=== PATIENT | female | born 1960 | race Caucasian/White ===

== ENCOUNTER 2016-05-29 10:19 | Emergency (ER) | payer MEDICARE, OTHER ==
[2016-01-02 09:31] VITALS: BMI 21.6
[~2016-05-29 10:19] MED LIST: BAYER CHEWABLE81 MG PO; DILAUDID4 MG PO; DURAGESIC1 PATCH .1 TRANSDERM; DURAGESIC1 PATCH .3 TRANSDERM; FLOMAX0.4 MG PO; OXYCODONE HCL5 MG PO; PHENERGAN25 M1 PO; PLAVIX75 MG PO; SEROQUEL25 MG PO; VENTOLIN HFA18 GM INH
[2016-05-29 10:49] LABS: HEMOGLOBIN 13.3 g/dL (12-16); LYMPHOCYTES 32.1 % (15-50); MCH 28.9 pg (26.0-34.0); MCHC 32.4 g/dL (31.0-37.0); MCV 89.1 fL (80.0-100.0); MEAN PLATELET VOLUME 10.3 fL (7.4-10.4); PLATELET COUNT 130 10x3/uL (130-400); RDW 12.8 % (11.5-14.5); WBC 3.6 10x3/uL (4.8-10.8)
[2016-05-29 10:59] LABS: ALBUMIN 3.5 g/dL (3.4-5.0); ALKALINE PHOSPHATASE 131 U/L (46-116); ALT (SGPT) 35 U/L (10-68); CALC OSMOLALITY 284 mosm/kg (275-300); CARBON DIOXIDE 29.6 mmol/L (21.0-32.0); CHLORIDE - SERUM 107 mmol/L (98-107); CREATININE - SERUM 0.8 mg/dL (0.6-1.3); GLUCOSE 120 mg/dL (74-106); POTASSIUM - SERUM 3.9 mmol/L (3.5-5.1); PROTEIN - SERUM 6.6 g/dL (6.4-8.2); SODIUM 143 mmol/L (136-145); UREA NITROGEN 11 mg/dL (7-18); eGFR NON AFRICAN AMERICAN 79 mL/min (90-120)
[2016-05-29 11:10] LABS: CKMB 0.2 U/L (0.0-3.6); CREATINE KINASE 28 UL (21-215); TROPONIN-I < 0.017 ng/mL (0.000-0.060)
== END 2016-05-29 14:04 | disposition home or self-care (01) ==
LOC: D.ER 10:19
PROVIDERS: Emergency Medicine
DX: R07.89 Other chest pain (principal); J44.1 Chronic obstructive pulmonary disease with (acute) exacerbation; Z86.79 Personal history of other diseases of the circulatory system; K86.1 Other chronic pancreatitis; F17.200 Nicotine dependence, unspecified, uncomplicated; R00.1 Bradycardia, unspecified

== ENCOUNTER 2016-06-11 10:54 | Outpatient (CLI) | payer MEDICARE, OTHER ==
[~2016-06-11] VITALS: Ht 180.3 cm; Wt 73.2 kg
--- NOTE | ~2016-06-11 | HEMODYNAMI ---
PATIENT:RUTHIE PAUL MEDICAL RECORD: [id number] : 64 LOCATION:[facility] ADMISSION DATE: 06/11/16 Generatedon:06/11/201613:45 Patient name: RUTHIE PAUL Patient #: [id number] : 1960 Date of study: 06/11/2016 Page: Of Hemodynamic Procedure Report Patient Data Patient Demographics Procedure consent was obtained First Name: RUTHIE Gender: Female Last Name: HUMBERTO : 1960 [facility] Initial: LEVI Age: 55 year(s) Patient #: [id number] Race: SSN: [id number] Additional ID: [id number] Contact details Address: [address] [place] [address] State: [place] City: [place] Zip code: [address] Past Medical History Allergies Allergen Reaction Date Comments Reported Other 01/02/2016 metoclopramide hcl, zolpidem allergy tartrate,pcn,ambien,doxycyclin,vancomycin,macrobid . Admission Admission Data Admission Date: 06/11/2016 Admission Time: 10:54 Arrival Date: 06/11/2016 Arrival Time: 13:00 Admit Source: Other Insurance Payor: Medicare Lab Results Lab Result Date: 06/11/2016 Lab Result Time: 0:00 Biochemistry Name Units Result Min Max BUN mg/dl 13 --(--*-)-- 7 18 Creatinine mg/dl 0.8 --(-*--)-- 0.6 1.3 CBC Name Units Result Min Max Hemoglobin g/dl 12.8 -*(----)-- 13.5 17.5 Procedure Procedure Types Cath Procedure Diagnostic Procedure C [facility] w/Coronaries PCI Procedure Coronary Stent Initial Miscellaneous Procedures Moderate Sedation up to 45 minutes Procedure Description Procedure Date Procedure Date: 06/11/2016 Procedure Start Time: 13:10 Procedure End Time: 13:40 Procedure Staff Name Function Jani Leary MD Performing Physician Sofía Martines RT Scrub Sherry Bowers RN Nurse Yue Mchugh RT Monitor Procedure Data Cath Procedure Fluoroscopy Diagnostic fluoroscopy Total fluoroscopy Time: 7 time: 7 min min Diagnostic fluoroscopy Total fluoroscopy dose: dose: 158.31 mGy 158.31 mGy Contrast Material Contrast Material Type Amount (ml) Isovue 370 79 Entry Location Entry Primary Successful Side Size Upsize Upsize Entry Closure Succes sful Closure Location (Fr) 1 (Fr) 2 (Fr) Remarks Device Remarks Femoral Right 5 Fr 6 Fr artery Short Estimated blood loss: 5 ml Diagnostic catheters Device Type Used For End Catheter Placement Cordis 5Fr JL 4.0 Left Coronary Catheter (MP) Angiography Cordis 5Fr 3DRC Catheter Right Coronary (MP) Angiography Cordis 5Fr Pigtail Multi-vessel Catheter (MP) Angiography Procedure Complications No complications Procedure Medications Medication Administration Route Dosage Oxygen NC 2 l/min Heparin Flush Bag added to field 2 bags (1000units/500ml NS) Lidocaine 2% added to field 20 Versed I.V. 1 mg Fentanyl I.V. 50 mcg 0.9% NaCl I.V. bolus 250 ml Versed I.V. 1 mg Fentanyl I.V. 50 mcg Fentanyl I.V. 25 mcg Heparin Bolus I.V. 7300 units Plavix P.O. 600 mg Hemodynamics Rest HGB: 12.8 (g/dl) Heart Rate: 58 (bpm) Pressure Samples Time Site Value (mmHg) Purpose Heart Use Rate(bpm) 13:19 LV 94/-10,3 Snapshot 60 13:20 AO 83/47(62) Pullback 63 13:20 LV 90/-13,6 Pullback 63 Gradients Valve Time Site 1 Site 2 Mean SEP/DFP Peak To Heart Use (mmHg) (sec/min) Peak Rate (mmHg) (bpm) Aortic 13:20 LV AO 9 15 7 63 90/-13,6 83/47(62) Calculations Valve P-P Mean Valve Index Valve Source Name Gradient Area Flow (cm2) Aortic 7 9 7 9 Snapshots Pre Cath Intra NCS Post Cath Vital Signs Time Heart Resp SPO2 NIBP Rhythm Pain Sedation Rate (ipm) (%) (mmHg) Status Level (bpm) 12:49:28 62 20 94 103/53(86) NSR 0 (11) 10(A) , No pain 12:53:44 59 16 97 101/45(77) NSR 0 (11) 10(A) , No pain 12:57:56 60 20 98 96/49(64) NSR 0 (11) 10(A) , No pain 13:02:06 60 20 100 91/47(58) NSR 0 (11) 10(A) , No pain 13:06:17 60 16 100 90/42(66) NSR 0 (11) 10(A) , No pain 13:10:27 61 18 100 80/39(59) NSR 0 (11) 10(A) , No pain 13:14:33 58 18 100 84/46(68) NSR 0 (11) 9(A) , No pain 13:18:41 64 22 100 83/44(62) NSR 0 (11) 9(A) , No pain 13:22:49 59 16 100 83/40(60) NSR 0 (11) 9(A) , No pain 13:26:55 67 16 100 85/45(68) NSR 0 (11) 9(A) , No pain 13:31:03 64 21 100 87/45(63) NSR 0 (11) 9(A) , No pain 13:35:10 58 18 100 80/47(67) NSR 0 (11) 9(A) , No pain 13:39:16 59 16 100 80/49(65) NSR 0 (11) 10(A) , No pain Medications Time Medication Route Dose Verified Delivered Reason Notes Effectiveness by by 12:48:28 Oxygen NC 2 Jani Sherry Per physician l/min Jacky Bowers RN 12:48:38 Heparin Flush added 2 Jani Jani used for Bag to bags Jacky Leary MD procedure (1000units/500ml field NS) 12:48:45 Lidocaine 2% added 20ml Jani Jani used for to vial Jacky Leary MD procedure field 13:06:40 Versed I.V. 1 mg Jani Sherry for sedation Jacky Bowers RN 13:06:48 Fentanyl I.V. 50 Jani Sherry for sedation mcg Jacky Bowers RN 13:08:16 Fentanyl I.V. 50 Jani Sherry for sedation mcg Jacky Bowers RN 13:08:57 Versed I.V. 1 mg Jani Sherry for sedation Jacky Bowers RN 13:10:19 Fentanyl I.V. 25 Jani Sherry for sedation mcg Jacky Bowers RN 13:10:31 0.9% NaCl I.V. 250 Jani Sherry Per physician bolus ml Jacky Bowers RN 13:25:22 Heparin Bolus I.V. 7300 Jani Sherry for dose units Jacky Bowers RN anticoagulation verified wtih dr leary 13:42:29 Plavix P.O. 600 Jani Sherry for mg Jacky Bowers RN antiplatelet therapy Procedure Log Time Note 12:30:37 Sofía Conrad RT(R) sent for patient. Start room use. 12:42:13 Diagnostic Cath Status : Elective 12:42:58 Time tracking: Regular hours 12:43:03 Plan of Care:Hemodynamics will remain stable., Cardiac rhythm will remain stable., Comfort level will be maintained., Respiratory function will remain adequate., Patient/ family verbilizes understanding of procedure., Procedure tolerated without complication., Recovers from procedure without complications.. 12:43:08 Patient received from Outpatients to [facility] Alert and oriented. Tansferred to table in Supine position. 12:43:09 Warm blankets applied, and yeni hugger turned on for patient comfort. 12:43:09 Correct patient and procedure confirmed by team. 12:43:11 Signed procedure consent form obtained from patient. 12:43:12 ECG and BP/O2 sat monitors applied to patient. 12:48:19 Vital chart was started 12:48:28 Oxygen 2 l/min NC was given by Sherry Bowers RN; Per physician; 12:48:38 Heparin Flush Bag (1000units/500ml NS) 2 bags added to field was given by Jani Leary MD; used for procedure; 12:48:45 Lidocaine 2% 20ml vial added to field was given by Jani Leary MD; used for procedure; 12:54:19 Baseline sample Acquired. 12:54:48 Rhythm: sinus rhythm 12:54:56 Full Disclosure recording started 12:56:29 H&P Date Dictated: 06/03/2016 Within 30 days and on chart., H&P Addendum completed by physician on day of procedure. (MUST COMPLETE FOR ALL OUTPATIENTS). 12:56:31 Pre-procedure instructions explained to patient. 12:56:31 Pre-op teaching completed and patient verbalized understanding. 12:56:33 Family in waiting room. 12:56:35 Patient NPO since Midnight. 12:56:43 Is the patient allergic to Iodine/contrast media? No. 12:56:44 Was the patient premedicated? No 12:59:34 Is patient on blood thinner?No 12:59:38 Patient diabetic? No. 12:59:47 Previous problem with sedation/anesthesia? No ? 12:59:51 Snore? No 12:59:52 Sleep apnea? No 12:59:53 Deviated septum? No 12:59:54 Opens mouth fully? Yes 12:59:55 Sticks out tongue? Yes 12:59:56 Airway obstruction? Yes copd 12:59:59 Dentures? No ? 13:00:03 Pre procedure: right dorsailis pedis pulse 1+ Palpable, but thready & weak; easily obliterated 13:00:05 Patient pain scale 0/10 ?. 13:00:11 IV patent on arrival in left forearm with 0.9% NaCl at [facility]. 13:00:38 Lab Result : BUN 13 mg/dl 13:00:38 Lab Result : Creatinine 0.8 mg/dl 13:00:38 Lab Result : Hemoglobin 12.8 g/dl 13:00:42 Lab results completed and on chart. 13:00:46 Right Radial & Right Groin area was prepped with chlora-prep and draped in sterile fashion 13:00:47 Alarms reviewed by R. N. 13:00:47 Sharps counted by scrub and verified by R.N. 13:05:48 Physician arrived 13:05:49 --------ALL STOP TIME OUT------ 13:06:00 Final Timeout: patient, procedure, and site verified with staff and physician. All members of the team are in agreement. 13:06:06 Right groin site verified by team. 13:06:09 Physical assessment completed. ASA score P 2 - A patient with mild systemic disease as per Jani Leary MD. 13:06:15 Sedation plan: IV Moderate Sedation Versed, Fentanyl 13:06:22 Use device set Femoral Dx 13:06:23 Acist Syringe opened to sterile field. 13:06:23 Bag Decanter opened to sterile field. 13:06:24 Medline Cath Pack opened to sterile field. 13:06:24 Terumo 5Fr [place] Sheath opened to sterile field. 13:06:25 St Minh 260cm J .035 wire opened to sterile field. 13:06:26 Acist Hand Control opened to sterile field. 13:06:27 Acist Manifold opened to sterile field. 13:06:28 Diagnostic Infinity 5Fr Multipack catheter opened to sterile field. 13:06:29 Tegaderm 4 x 4 opened to sterile field. 13:06:40 Versed 1 mg I.V. was given by Sherry Bowers RN; for sedation; 13:06:48 Fentanyl 50 mcg I.V. was given by Sherry Bowers RN; for sedation; 13:08:16 Fentanyl 50 mcg I.V. was given by Sherry Bowers RN; for sedation; 13:08:57 Versed 1 mg I.V. was given by Sherry Bowers RN; for sedation; 13:09:59 Procedure started. 13:10:04 Local anesthetic to right femoral artery with Lidocaine 2% by Jani Leary MD.INITIAL ACCESS ONLY 13:10:19 Fentanyl 25 mcg I.V. was given by Sherry Bowers RN; for sedation; 13:10:31 0.9% NaCl 250 ml I.V. bolus was given by Sherry Bowers RN; Per physician; 13:12:08 A 5 Fr sheath was inserted into the Right Femoral artery 13:14:02 A Cordis 5Fr JL 4.0 Catheter (MP) was advanced over the wire and used for Left Coronary Angiography. 13:15:17 LCA angiography performed. 13:15:20 Injector settings: Ml/sec: 3, Volume: 6, 13:16:06 Catheter removed. 13:16:11 A Cordis 5Fr 3DRC Catheter (MP) was advanced over the wire and used for Right Coronary Angiography. 13:17:33 RCA angiography performed. 13:17:36 Injector settings: Ml/sec: 3, Volume: 6, 13:17:58 Catheter removed. 13:18:09 A Cordis 5Fr Pigtail Catheter (MP) was advanced over the wire and used for Multi-vessel Angiography. 13:19:23 LV hemodynamics recorded. 13:19:24 LV gram done using GARCIA 13:19:27 Injector settings: Ml/sec: 5, Volume: 15, 13:19:58 EF : 55 % 13:20:00 Catheter removed. 13:21:09 Proceeding to intervention. 13:21:27 [employer] BMW [place] 2 J-tip 300cm 0.014 guide wir opened to sterile field. 13:21:28 [employer] BasixCompak Inflation Kit opened to sterile field. 13:21:29 Terumo 6Fr [place] Sheath opened to sterile field. 13:21:39 Sheath upsized to a 6 Fr Short. 13:22:53 Cordis 6FR XBLAD 3.5 SH guide catheter opened to sterile field. 13:23:04 6 Fr xblad 3.5 guide catheter was inserted over the wire 13:23:14 High Pressure Extension Tubing (Jacky) opened to sterile field. 13:23:57 bmw wire advanced. 13:23:59 Wire advanced across lesion. 13:25:22 Heparin Bolus 7300 units I.V. was given by Sherry Bowers RN; for anticoagulation; dose verified wtih dr leary 13:28:52 Inflation number: 1 A [place] Sci Motley 3.0 X 15 balloon was prepped and advanced across the Mid LAD, then inflated to 10 ELE for 0:10 (min:sec). 13:29:44 Inflation number: 2 The [place] Sci Motley 3.0 X 15 balloon was reinflated across the Mid LAD, to 12 ELE for 0:10 (min:sec). 13:30:27 Inflation number: 3 The [place] Sci Motley 3.0 X 15 balloon was reinflated across the Mid LAD, to 8 ELE for 0:10 (min:sec). 13:34:12 Balloon removed over the wire. 13:37:17 Inflation Number: 4 A Medtronic Integrity 3.0 X 9 stent was prepped and advanced across the Mid LAD. The stent was deployed at 12 ELE for 0:10 (min:sec). 13:38:34 Stent catheter was removed intact over wire. 13:38:36 Wire removed. 13:38:36 Guide catheter removed. 13:38:50 Cordis 6Fr Exoseal opened to sterile field. 13:38:53 Procedure ended.(Physican Out) 13:39:21 Fluoroscopy time 07.00 minutes. 13:39:31 Fluoroscopy dose: 158.31 mGy 13:39:31 Flurop Dose total: 158.31 13:39:36 Contrast amount:Isovue 370 79ml. 13:39:37 Sharps counted by scrub and verified by R.N. 13:39:38 Insertion/operative site no bleeding no hematoma. 13:39:42 Post-op/insertion site Right Femoral artery dressed using a 4 x 4 and Tegaderm. 13:39:45 Post right femoral artery:stable 13:39:47 Post Procedure Pulses reassessed and unchanged 13:39:51 Post procedure rhythm: unchanged. 13:39:55 Estimated blood loss: 5 ml 13:39:56 Post procedure instruction explained to patient.Patient verbalizes understanding. 13:39:57 Patient needs reinforcement of post procedure teaching. 13:40:05 Procedure type changed to Cath procedure, Diagnostic procedure, LHC, LHC w/Coronaries, PCI procedure, Coronary Stent Initial, Miscellaneous Procedures, Moderate Sedation up to 45 minutes 13:40:06 Procedure and supply charges have been captured, reviewed, submitted and are correct. 13:40:11 Procedure Complication : No complications 13:40:13 Vital chart was stopped 13:40:15 See physician's report for complete and final results. 13:40:16 Report given to Pre/Post Procedure Room. 13:40:19 Patient transfered to Pre/Post Procedure Room with Stretcher. 13:40:24 Procedure ended. 13:40:24 Full Disclosure recording stopped 13:40:47 ACC-PCI Only Patient was given prescriptions, or instructed by Jani Leary MD to start/continue the following medications upon discharge: Plavix 13:40:48 End room use (Document Last) 13:41:16 Admit Source: Other 13:41:18 Arrival Date: 06/11/2016 1:00:00 PM 13:41:29 Insurance Payor : Medicare 13:42:29 Plavix 600 mg P.O. was given by Sherry Bowers RN; for antiplatelet therapy; Intervention Summary Intervention Notes Time ActionType Lesion and Equipment Action# Pressure Duration Attributes Used 13:28:52 Inflate Mid LAD [place] 1 10 00:10 balloon Sci Motley 3.0 X 15 balloon 13:29:44 Reinflate Mid LAD [place] 2 12 00:10 balloon Sci Motley 3.0 X 15 balloon 13:30:27 Reinflate Mid LAD [place] 3 8 00:10 balloon Sci Motley 3.0 X 15 balloon 13:37:17 Place stent Mid LAD Medtronic 4 12 00:10 Integrity 3.0 X 9 stent Device Usage Item Name Manufacture Quantity Catalog Number Hospital Part Current Mini mal Lot# / Charge Number Stock Stock Serial# Code Acist Acist 1 35984 586931 716037 872921 20 Syringe Medical [employer] Inc Bag Microtek 1 2002S 023085 78514 262444 5 Sis[employer] Medline Cardinal 1 [id number] 601963 89313 583166 5 Cath Pack Health Terumo 5Fr Terumo 1 [id number] 456565 515955 312509 [address] Minh 1 201263 405963 778309 876370 30 260cm J .035 wire Acist Hand Acist 1 94976 204987 582578 749648 5 Lulu [employer] Inc Acist Acist 1 68303 131167 682181 615273 5 MeriTaleem [employer] Inc Diagnostic Cardinal 1 [id number] 642594 94427 543007 30 Infinity Health 5Fr Multipack catheter Tegaderm 4 3M 1 1626W 173472 847203 731967 5 x 4 Cordis 5Fr Cardinal 1 307169 5 JL 4.0 Health Catheter (MP) Cordis 5Fr Cardinal 1 312011 5 3DRC Health Catheter (MP) Cordis 5Fr Cardinal 1 733616 5 Pigtail Health Catheter (MP) Mosley BMW Mosley 1 [id number] 990709 304614 886402 5 [place] 2 Vascular J-tip 300cm 0.014 guide wir Merit Merit 1 [id number] 897036 560428 467618 15 [employer] Medical Inflation Kit Terumo 6Fr Terumo 1 XXX082 107165 393549 992590 40 [place] Sheath Cordis 6FR Cardinal 1 [id number] 163416 733205 246932 3 XBLAD 3.5 Health SH guide catheter High Merit 1 [id number] 014051 01676 268117 10 Pressure Medical Extension Tubing (Leary) [place] Sci [place] 1 [id number] 091437 192838 526163 1 [id number] Motley Scientific 3.0 X 15 balloon Medtronic Medtronic 1 [id number] 756932 000924 552722 4 [id number] Integrity 3.0 X 9 stent Cordis 6Fr Cardinal 1 [id number] 895615 193474 560912 10 [facility] Memopal Signature Audit Bob White Stage Time Signature Unsigned Intra-Procedure 06/11/2016 Yue Mchugh 1:45:15 PM RT(R) Signatures Monitor : Yue Mchugh RT Signature : Date : Time : [place] [id number] [place] [address]
[2016-06-11] MEDS ORDERED: SYMBICORT 16010.2 GM INH (11:30)
[2016-06-11] MEDS ORDERED: SINGULAIR10 MG PO (11:30)
[2016-06-11] MEDS ORDERED: ISOSORBIDE DINI30 MG PO (11:31)
[2016-06-11 11:37] LABS: BASOPHILS 0.7 % (0.0-2.0); HEMATOCRIT 40.6 % (36.0-48.0); HEMOGLOBIN 12.8 g/dL (12-16); IMMATURE GRANULOCYTES 0.2 % (0-5); LYMPHOCYTES 34.6 % (15-50); MCH 28.4 pg (26.0-34.0); MCHC 31.5 g/dL (31.0-37.0); MEAN PLATELET VOLUME 10.5 fL (7.4-10.4); MONOCYTES 6.9 % (2-11); NEUTROPHILS 54.6 % (40-80); PLATELET COUNT 134 10x3/uL (130-400); RBC 4.51 10x6/uL (4.00-5.40); RDW 13.1 % (11.5-14.5); WBC 4.4 10x3/uL (4.8-10.8)
[2016-06-11 11:38] VITALS: BP 101/55; Ht 180.3 cm; Wt 73.2 kg
[2016-06-11 12:05] LABS: CALC OSMOLALITY 284 mosm/kg (275-300); CALCIUM 8.7 mg/dL (8.5-10.1); CARBON DIOXIDE 28.3 mmol/L (21.0-32.0); CHLORIDE - SERUM 107 mmol/L (98-107); CREATININE - SERUM 0.8 mg/dL (0.6-1.3); GLUCOSE 104 mg/dL (74-106); POTASSIUM - SERUM 3.2 mmol/L (3.5-5.1); SODIUM 143 mmol/L (136-145); UREA NITROGEN 13 mg/dL (7-18); eGFR NON AFRICAN AMERICAN 79 mL/min (90-120)
--- NOTE | 2016-06-11 14:26 | NUR ---
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 PT SLEEPING AND AWAKENS TO VERBAL STIMULI. C/O NAUSEA. DR ORTEGA HERE AND ORDER FOR JEANNIE RECEIVED. RIGHT GROIN EXOSEAL IS CDI, NO BLEEDING OR HEMATOMA NOTED AT SITE. PEDAL PULSES PALPABLE. TOES WARM TO TOUCH AND PINK. INSTRUCTED PT TO KEEP RIGHT LEG STRAIGHT AND HEAD TO PILLOW, PT VERBALIZES UNDERSTANDING.
[2016-06-11] MEDS ORDERED: BAYER CHEWABLE81 MG PO (14:44)
[2016-06-11] MEDS ORDERED: PLAVIX75 MG PO (14:44)
--- NOTE | 2016-06-11 17:15 | NUR ---
1530 PT SLEEPING, AWAKENS TO VERBAL STIMULI. DENIES ANY C/O CHEST DISCOMFORT. GROIN DRESSING IS CDI, NO BLEEDING OR BRUISING AT SITE. PEDAL PULSES PALPABLE. AT BEDSIDE. CALL LIGHT IN REACH. 1645 SANDWICH TRAY SERVED, PT DENIES ANY C/O. DRESSING TO RIGHT GROIN IS CDI, NO BLEEDING OR HEMATOMA NOTED. PEDAL PULSES PALPABLE. CALL LIGHT IN REACH. 1715 PT TOLERATED SANDWICH WITH NO C/O NAUSEA. DRESSING TO RIGHT GROIN IS STABLE WITH NO BLEEDING OR HEMATOMA, PT DENIES ANY CHEST DISCOMFORT. AT BEDSIDE. CALL LIGHT IN REACH.
--- NOTE | 2016-06-11 17:50 | NUR ---
1750 DC INSTRUCTIONS REVIEWED WITH PT AND SPOUSE WHO VERBALIZE UNDERSTANDING. STENT CARD, PLAVIX RX, EXOSEAL BOOKLET TO PT. IV DC'D WITH CATH INTACT. DRESSING TO RIGHT GROIN IS CDI, NO BLEEDING OR HEMATOMA NOTED. PT DENIES ANY C/O. IS DRESSING FOR DC TO HOME.
--- NOTE | 2016-06-11 18:02 | NUR ---
1800 PT HAS AMBULATED TO THE BATHROOM AND VOIDED QS. GROIN DRESSING REMAINS STABLE WITH NO BLEEDING OR HEMATOMA NOTED. PT ESCORTED TO PRIVATE AUTO VIA WC BY STAFF WITH DRIVING HER HOME.
--- NOTE | 2016-07-15 08:17 | OP ---
PATIENT NAME: RUTHIE PAUL MEDICAL RECORD: [id number] :64 LOCATION:D.CAT ADMISSION DATE: SURGEON: MARY KAY ORTEGA M.D. DATE OF OPERATION: 06/11/2016 Catheterization Report PROCEDURES PERFORMED: 1. Selective coronary angiography. 2. Left heart catheterization with ventriculogram. 3. PTCA and stent placement to the LAD. INDICATION: A 55-year-old woman with history of coronary artery disease presents with recurrent angina. Cardiac catheterization performed to rule out restenosis. EQUIPMENT USED: A 5-British JL4, Aldo right, pigtail catheter. INTERVENTION: A 6-British XB LAD guide, BMW guide wire, 3.0 x 15 mm [place] balloon, 3.0 x 9 mm Integrity stent. TECHNIQUE: A 5-British sheath was inserted in retrograde fashion in the right common femoral artery. Next, selective coronary angiography was performed in standard 5-British JL4 and Aldo right. Left heart catheterization was performed using pigtail catheter. CORONARY ANATOMY: 1. Left main: Left main trunk is moderate in caliber. It gives rise to the LAD and circumflex. It has no obstruction. 2. LAD: This is a moderate caliber vessel extending to the apex. The proximal vessel has been stented. The stent demonstrates an 80% restenosis in the mid to distal portion of the stent. 3. Circumflex: This vessel is moderate in caliber. It has mild irregularities throughout its course, but no significant stenosis is seen. There is nothing worse than 30%. 4. Right coronary artery: This vessel is large in caliber and dominant. A smooth-walled vessel and angiographically normal. 5. Left ventricle: Left ventricle is normal in size and function. No wall motion abnormalities are seen. Estimated ejection fraction is 50% to 55%. DESCRIPTION OF INTERVENTION: A 6-British sheath was inserted in retrograde fashion in the right common femoral artery. Next, 100 units per kilogram of heparin was infused. A 6-British XB LAD guide was advanced and engaged in the left main coronary artery. Next, a BMW guide wire was placed in the distal vessel. The vessel was predilated with a 3.0 x 15 mm [place] balloon at 12 atmospheres. Injection revealed persistent 80% restenosis. At this point, a 3.0 x 9 mm Integrity stent was placed across this restenotic area and deployed at 12 atmospheres. Injection shows stent to be widely patent with 0% residual stenosis. There is marked improvement in distal flow. At this point, the wire and guide were removed. IMPRESSION: Successful percutaneous transluminal coronary angioplasty and stenting of the LAD with 0% residual stenosis. TRANSINT:[id number] Voice Confirmation ID: [id number] DOCUMENT ID: [id number] OPERATIVE REPORT [id number] RUTHIE PAUL TIMOTHY E M.D. at 0817 CC: [id number] DICTATION DATE: 06/11/16 1351 [employer]: 06/11/16 1903 DEP CLI 06/11/16 [facility] [address] [place] [address]
== END 2016-06-11 18:00 | disposition home or self-care (01) ==
LOC: D.CATH 10:54
PROVIDERS: Internal Medicine Cardiovascular Disease
DX: I25.119 Atherosclerotic heart disease of native coronary artery with unspecified angina pectoris (principal); I10 Essential (primary) hypertension; E11.9 Type 2 diabetes mellitus without complications; J44.9 Chronic obstructive pulmonary disease, unspecified; K21.9 Gastro-esophageal reflux disease without esophagitis

== ENCOUNTER 2016-07-15 19:57 | Outpatient (CLI) | payer MEDICARE, OTHER ==
[~2016-07-15] VITALS: Ht 180.3 cm; Wt 61.4 kg
--- NOTE | ~2016-07-15 | HEMODYNAMI ---
PATIENT:RUTHIE PAUL MEDICAL RECORD: [id number] : 64 [facility]ATION:[facility]# [id number] ADMISSION DATE: 07/15/16 Generatedon:07/16/20169:18 Patient name: RUTHIE PAUL Patient #: [id number] : 1960 Date of study: 07/16/2016 Page: Of Hemodynamic Procedure Report Patient Data Patient Demographics Procedure consent was obtained First Name: RUTHIE Gender: Female Last Name: HUMBERTO : 1960 [facility] Initial: LEVI Age: 55 year(s) Patient #: [id number] Race: SSN: [id number] Additional ID: [id number] Contact details [address]: [address] [place] [address] State: [place] City: [place] Zip code: [address] Past Medical History Allergies Allergen Reaction Date Comments Reported Other 01/02/2016 metoclopramide hcl, zolpidem allergy tartrate,pcn,ambien,doxycyclin,vancomycin,macrobid . Admission Admission Data Admission Date: 07/15/2016 Admission Time: 17:41 Procedure Procedure Types Cath Procedure Diagnostic Procedure LHC LHC w/Coronaries PCI Procedure Coronary Stent Initial Miscellaneous Procedures Moderate Sedation up to 15 minutes Procedure Description Procedure Date Procedure Date: 07/16/2016 Procedure Start Time: 9:00 Procedure End Time: 9:17 Procedure Staff Name Function Juan Diego Rubi MD Performing Physician Sofia Mckeon RN Nurse Gerardo Worrell RT Monitor Isacc Sotomayor RT Scrub Procedure Data Cath Procedure Fluoroscopy Diagnostic fluoroscopy Total fluoroscopy Time: 1.8 time: 1.8 min min Diagnostic fluoroscopy Total fluoroscopy dose: dose: 147.18 mGy 147.18 mGy Contrast Material Contrast Material Type Amount (ml) Isovue 300 83 Entry Location Entry Primary Successful Side Size Upsize Upsize Entry Closure Succes sful Closure Location (Fr) 1 (Fr) 2 (Fr) Remarks Device Remarks Femoral Right 6 Fr Exoseal artery Short Estimated blood loss: 10 ml Diagnostic catheters Device Type Used For End Catheter Placement Cordis 5Fr Pigtail Procedure Catheter (MP) Cordis 5Fr JL 4.0 Procedure Catheter (MP) Cordis 5Fr 3DRC Catheter Procedure (MP) Procedure Complications No complications Procedure Medications Medication Administration Route Dosage Oxygen NC 2 l/min Heparin Flush Bag added to field 2 bags (1000units/500ml NS) Lidocaine 2% added to field 20 Zofran I.V. 4 mg Fentanyl I.V. 50 mcg Versed I.V. 1 mg Fentanyl I.V. 25 mcg Versed I.V. 0.5 mg Fentanyl I.V. 25 mcg Versed I.V. 0.5 mg Heparin Bolus I.V. 4000 units Integrilin (Bolus I.V. 6.8 ml 2mg/ml) Plavix P.O. 600 mg Hemodynamics Rest Heart Rate: 65 (bpm) Snapshots Pre Cath Intra NCS Post Cath Vital Signs Time Heart Resp SPO2 NIBP (mmHg) Rhythm Pain Sedation Rate (ipm) (%) Status Level (bpm) 8:53:52 61 20 100 130/87(120) NSR 0 (11) 10(A) , No pain 8:58:04 62 16 99 115/68(90) NSR 0 (11) 10(A) , No pain 9:02:10 61 18 99 116/69(92) NSR 0 (11) 9(A) , No pain 9:06:20 68 16 96 105/69(84) NSR 0 (11) 9(A) , No pain 9:10:33 70 18 97 104/65(77) NSR 0 (11) 9(A) , No pain 9:14:37 62 7 98 110/64(82) NSR 0 (11) 10(A) , No pain Medications Time Medication Route Dose Verified Delivered Reason Notes Effectiveness by by 8:50:51 Oxygen NC 2 Sofia Sofia used for l/min Mckeon Mckeon flight hostess RN 8:50:58 Heparin Flush added 2 Sofia Sofia used for Bag to bags Mckeon Mckeon procedure (1000units/500ml field RN RN NS) 8:51:06 Lidocaine 2% added 20ml Sofia Sofia used for to vial Mckeon Mckeon procedure field RN RN 8:51:15 Zofran I.V. 4 mg Sofia Sofia Per physician Mckeon Mckeon RN RN 8:56:53 Fentanyl I.V. 50 Sofia Sofia for sedation mcg Mike Mckeon RN RN 8:56:58 Versed I.V. 1 mg Sofia Sofia for sedation Mike Mckeon RN RN 9:00:53 Fentanyl I.V. 25 Sofia Sofia for sedation mcg Mike Mckeon RN RN 9:00:58 Versed I.V. 0.5 Sofia Sofia for sedation mg Mike Mckeon RN RN 9:02:00 Fentanyl I.V. 25 Sofia Sofia for sedation mcg Mike Mckeon RN RN 9:02:04 Versed I.V. 0.5 Sofia Sofia for sedation mg Mike Mckeon RN RN 9:06:46 Integrilin I.V. 6.8ml Sofia Sofia for 3.2 ml (Bolus 2mg/ml) Mckeon Mike anticoagulation integ RN RN wasted 9:06:46 Heparin Bolus I.V. 4000 Sofia Sofia for units Mckeon Mike anticoagulation RN RN 9:10:19 Plavix P.O. 600 Sofia Sofia for mg Mckeon Mike antiplatelet RN RN therapy Procedure Log Time Note 8:20:55 Isacc Sotomayor RT(R) sent for patient. Start room use. 8:21:56 Time tracking: Regular hours 8:22:00 Plan of Care:Hemodynamics will remain stable., Cardiac rhythm will remain stable., Comfort level will be maintained., Respiratory function will remain adequate., Patient/ family verbilizes understanding of procedure., Procedure tolerated without complication., Recovers from procedure without complications.. 8:44:23 Patient received from ED to CCL 3 Alert and oriented. Tansferred to table in Supine position. 8:44:24 Warm blankets applied, and yeni hugger turned on for patient comfort. 8:44:24 Correct patient and procedure confirmed by team. 8:44:25 Signed procedure consent form obtained from patient. 8:44:26 ECG and BP/O2 sat monitors applied to patient. 8:50:51 Oxygen 2 l/min NC was administered by Sofia Mckeon RN; used for procedure; 8:50:58 Heparin Flush Bag (1000units/500ml NS) 2 bags added to field was administered by Sofia Mckeon RN; used for procedure; 8:51:06 Lidocaine 2% 20ml vial added to field was administered by Sofia Mckeon RN; used for procedure; 8:51:15 Zofran 4 mg I.V. was administered by Sofia Mckeon RN; Per physician; 8:52:52 Vital chart was started 8:52:53 Baseline sample Acquired. 8:52:56 Rhythm: sinus rhythm 8:52:57 Full Disclosure recording started 8:53:02 H&P Date Dictated: 07/16/2016 Emergent; H&P N/A. 8:53:03 Pre-procedure instructions explained to patient. 8:53:03 Pre-op teaching completed and patient verbalized understanding. 8:53:04 Family in waiting room. 8:53:05 Patient NPO since Midnight. 8:53:06 Is the patient allergic to Iodine/contrast media? No. 8:53:17 Is patient on blood thinner?No 8:53:20 ACC The patient was administered the following blood thiners within the last 24 hours: None 8:53:23 Patient diabetic? No. 8:53:26 Previous problem with sedation/anesthesia? No ? 8:53:27 Snore? Yes 8:53:28 Sleep apnea? No 8:53:29 Deviated septum? No 8:53:29 Opens mouth fully? Yes 8:53:30 Sticks out tongue? Yes 8:53:35 Airway obstruction? Yes Emphysema 8:53:39 Dentures? No ? 8:53:41 Pre procedure: right dorsailis pedis pulse 1+ Palpable, but thready & weak; easily obliterated 8:53:44 Patient pain scale 4/10 Physician notified.. 8:54:14 IV patent on arrival in left forearm with 0.9% NaCl at KVO. 8:54:17 Lab results completed and on chart. 8:54:20 Right groin area was prepped with chlora-prep and draped in sterile fashion 8:54:21 Alarms reviewed by R. N. 8:54:21 Sharps counted by scrub and verified by R.N. 8:54:23 --------ALL STOP TIME OUT------ 8:54:24 Final Timeout: patient, procedure, and site verified with staff and physician. All members of the team are in agreement. 8:54:26 Right groin site verified by team. 8:54:29 Physical assessment completed. ASA score P 2 - A patient with mild systemic disease as per Juan Diego Rubi MD. 8:54:32 Sedation plan: IV Moderate Sedation Versed, Fentanyl 8:56:22 Use device set Femoral Dx 8:56:24 Tegaderm 4 x 4 opened to sterile field. 8:56:25 Acist Hand Control opened to sterile field. 8:56:25 Acist Manifold opened to sterile field. 8:56:26 Acist Syringe opened to sterile field. 8:56:26 Bag Decanter opened to sterile field. 8:56:27 Medline Cath Pack opened to sterile field. 8:56:28 St Minh 260cm J .035 wire opened to sterile field. 8:56:30 Diagnostic Infinity 5Fr Multipack catheter opened to sterile field. 8:56:48 Terumo 6Fr Lincoln Sheath opened to sterile field. 8:56:53 Fentanyl 50 mcg I.V. was administered by Sofia Mckeon RN; for sedation; 8:56:58 Versed 1 mg I.V. was administered by Sofia Mckeon RN; for sedation; 9:00:12 IV Extension Set opened to sterile field. 9:00:25 Procedure started. 9:00:34 Local anesthetic to right femoral artery with Lidocaine 2% by Juan Diego Rubi MD.INITIAL ACCESS ONLY 9:00:53 Fentanyl 25 mcg I.V. was administered by Sofia Mckeon RN; for sedation; 9:00:58 Versed 0.5 mg I.V. was administered by Sofiasiva Mckeon RN; for sedation; 9:02:00 Fentanyl 25 mcg I.V. was administered by Sofiasvia Mckeon RN; for sedation; 9:02:00 A 6 Fr Short sheath was inserted into the Right Femoral artery 9:02:04 Versed 0.5 mg I.V. was administered by Sofia Mckeon RN; for sedation; 9:02:28 A Cordis 5Fr Pigtail Catheter (MP) was advanced over the wire and used for Procedure. 9:02:34 LV angiography performed. 9:02:35 LV gram done using GARCIA 9:02:44 EF : 50 % 9:03:19 Injector settings: Ml/sec: 10, Volume: 20, 9:03:20 Catheter removed. 9:03:27 A Cordis 5Fr JL 4.0 Catheter (MP) was advanced over the wire and used for Procedure. 9:03:59 LCA angiography performed. 9:04:18 Catheter removed. 9:04:20 Mosley Whisper J 300cm 0.014 guide wire opened to sterile field. 9:04:21 Merit BasixCompak Inflation Kit opened to sterile field. 9:04:43 A Cordis 5Fr 3DRC Catheter (MP) was advanced over the wire and used for Procedure. 9:05:01 RCA angiography performed. 9:05:17 Catheter removed. 9:06:46 Integrilin (Bolus 2mg/ml) 6.8ml I.V. was administered by Sofia Mckeon RN; for anticoagulation; 3.2 ml integ wasted 9::46 Heparin Bolus 4000 units I.V. was administered by Sofia Mckeon RN; for anticoagulation; 9:06:50 Cordis 6FR XB 3.5 guide catheter opened to sterile field. 9:07:12 ACC PCI Site: pCirc has 70% stenosis. 9:07:14 ACC Pre-intervention MARA Flow is 3. 9:07:19 6 Fr XB 3.5 guide catheter was inserted over the wire 9:08:40 Whisper wire advanced. 9:08:48 Wire advanced across lesion. 9:08:56 Inflation Number: 1 A Spring Pharmaceuticalstronic Integrity 3.0 X 9 stent was prepped and advanced across the Prox CX. The stent was deployed at 13 ELE for 0:10 (min:sec). 9:09:20 ACC Post-intervention MARA Flow is 3. 9:09:21 Stent catheter was removed intact over wire. 9::22 Wire removed. 9::22 Guide catheter removed. 9:10:19 Plavix 600 mg P.O. was administered by Sofia Mckeon RN; for antiplatelet therapy; 9::13 Sheath removed intact; hemostasis achieved with Exoseal to the Right Femoral artery. 9:11:22 Cordis 6Fr Exoseal opened to sterile field. 9:11:25 Procedure ended.(Physican Out) 9:11:37 Fluoroscopy time 01.80 minutes. ::42 Fluoroscopy dose: 147.18 mGy 9:11:42 Flurop Dose total: 147.18 9:11:46 Contrast amount:Isovue 300 83ml. 9:11:48 Sharps counted by scrub and verified by R.N. 9:11:52 Insertion/operative site no bleeding no hematoma. 9:11:54 Post-op/insertion site Right Femoral artery dressed using a 4 x 4 and Tegaderm. 9:11:55 Post Procedure Pulses reassessed and unchanged 9:11:58 Post-procedure physical assessment completed. ASA score P 2 - A patient with mild systemic disease as per Juan Diego Rubi MD. 9:12:00 Post procedure rhythm: unchanged. 9:12:03 Estimated blood loss: 10 ml 9:12:06 Post procedure instruction explained to patient.Patient verbalizes understanding. 9:12:06 Patient needs reinforcement of post procedure teaching. 9:13:20 Procedure type changed to Cath procedure, Diagnostic procedure, LHC, LHC w/Coronaries, PCI procedure, Coronary Stent Initial, Miscellaneous Procedures, Moderate Sedation up to 15 minutes 9:16:43 Procedure and supply charges have been captured, reviewed, submitted and are correct. 9:16:46 Procedure Complication : No complications 9:16:53 Vital chart was stopped 9:16:54 See physician's report for complete and final results. 9:16:56 Report given to Pre/Post Procedure Room. 9:17:00 Patient transfered to Pre/Post Procedure Room with Stretcher. 9:17:11 Procedure ended. 9:17:11 Full Disclosure recording stopped 9:17:28 ACC-PCI Only Patient was given prescriptions, or instructed by Juan Diego Rubi MD to start/continue the following medications upon discharge: Aspirin, Plavix 9:17:30 End room use (Document Last) Intervention Summary Intervention Notes Time ActionType Lesion and Equipment Action# Pressure Duration Attributes Used 9:08:56 Place stent Prox CX Medtronic 1 13 00:10 Integrity 3.0 X 9 stent Device Usage Item Name Manufacture Quantity Catalog Hospital Part Current Minimal L ot# / Number Charge Number Stock Stock Serial# Code Tegaderm 4 3M 1 [id number] [id number] [id number] 211645 5 x 4 Acist Hand Acist 1 03607 684687 095601 978075 5 ProMed Acist Acist 1 15240 430498 649809 860828 5 RollSale Inc Acist Acist 1 10638 123058 952862 828570 20 Syringe Medical Systems Inc Bag Microtek 1 2002S 546919 29132 743749 5 Decanter Medical Inc. Medline Cardinal 1 [id number] 612581 37390 173278 [address] [facility] Minh 1 962721 863300 910236 503723 30 260cm J .035 wire Diagnostic Cardinal 1 [id number] 549397 33718 475627 30 Infinity Health 5Fr Multipack catheter Terumo 6Fr Terumo 1 NLZ244 442604 957759 950119 40 Lincoln Sheath IV Hospira 1 20192-59 909240 31272 848063 5 Extension Set Cordis 5Fr Cardinal 1 319199 5 Pigtail Health Catheter (MP) Cordis 5Fr Cardinal 1 167179 5 JL 4.0 Health Catheter (MP) Mosley Mosley 1 [id number] 878952 451123 527202 5 Whisper J Vascular 300cm 0.014 guide wire Merit Merit 1 CQ0177 087011 829788 684625 15 SIPP International Industries Medical Inflation Kit Cordis 5Fr Cardinal 1 248839 5 3DRC Health Catheter (MP) Cordis 6FR Cardinal 1 [id number] 139873 153563 644010 2 XB 3.5 Health guide catheter Medtronic Medtronic 1 [id number] 366581 453666 125723 1 0 [id number] Integrity 3.0 X 9 stent Cordis 6Fr Cardinal 1 [id number] 572633 033287 956361 10 [facility]/Incubator Signature Audit [place] Stage Time Signature Unsigned Intra-Procedure 07/16/2016 Gerardo Worrell 9:18:11 AM RT(R) Signatures Monitor : Gerardo Worrell RT Signature : Date : Time : [facility] [address] [place] [address]
[2016-07-15 18:26] LABS: BASOPHILS 0.7 % (0.0-2.0); EOSINOPHILS 7.7 % (0-7); HEMATOCRIT 40.1 % (36.0-48.0); HEMOGLOBIN 12.5 g/dL (12-16); LYMPHOCYTES 24.6 % (15-50); MCH 28.4 pg (26.0-34.0); MCHC 31.2 g/dL (31.0-37.0); MCV 91.1 fL (80.0-100.0); MEAN PLATELET VOLUME 10.7 fL (7.4-10.4); MONOCYTES 7.7 % (2-11); NEUTROPHILS 59.3 % (40-80); PLATELET COUNT 129 10x3/uL (130-400); RDW 13.9 % (11.5-14.5); WBC 4.2 10x3/uL (4.8-10.8)
[2016-07-15 18:40] LABS: ALBUMIN 3.2 g/dL (3.4-5.0); ALKALINE PHOSPHATASE 130 U/L (46-116); ALT (SGPT) 39 U/L (10-68); BILIRUBIN - TOTAL 0.32 mg/dL (0.2-1.3); CALC OSMOLALITY 285 mosm/kg (275-300); CALCIUM 8.4 mg/dL (8.5-10.1); CARBON DIOXIDE 26.3 mmol/L (21.0-32.0); CHLORIDE - SERUM 109 mmol/L (98-107); CREATININE - SERUM 0.7 mg/dL (0.6-1.3); GLUCOSE 106 mg/dL (74-106); POTASSIUM - SERUM 4.5 mmol/L (3.5-5.1); PROTEIN - SERUM 6.3 g/dL (6.4-8.2); SODIUM 144 mmol/L (136-145); UREA NITROGEN 9 mg/dL (7-18); eGFR NON AFRICAN AMERICAN > 90 mL/min (90-120)
[2016-07-15 18:58] LABS: CHOL - HDL RATIO 2.4 ratio (2.3-4.1); CHOLESTEROL, TOTAL 176 mg/dL (0-200); CKMB 0.8 U/L (0.0-3.6); CREATINE KINASE 36 UL (21-215); HDL CHOLESTEROL 72 mg/dL (32-96); LDL CHOLESTEROL 93 mg/dL (0-100); LDL-HDL RATIO 1.3 ratio (1.5-3.5); TRIGLYCERIDE 58 mg/dL (30-200)
[2016-07-15 19:02] LABS: TROPONIN-I 0.121 ng/mL (0.000-0.060)
[~2016-07-15 19:57] MED LIST changes: +ISOSORBIDE DINI30 MG PO; +SINGULAIR10 MG PO; +SYMBICORT 16010.2 GM INH
[2016-07-15 21:27] LABS: APPEARANCE CLEAR (CLEAR); BILIRUBIN NEGATIVE (NEGATIVE); COLOR YELLOW (YELLOW); GLUCOSE NEGATIVE (NEGATIVE); KETONE NEGATIVE (NEGATIVE); LEUKOCYTE ESTERASE TRACE (NEGATIVE); NITRITE NEGATIVE (NEGATIVE); PROTEIN NEGATIVE (NEGATIVE); UROBILINOGEN NORMAL (NORMAL)
[2016-07-15 21:29] LABS: BACTERIA FEW /hpf (NONE SEEN); EPITHELIAL CELLS 0-5 /hpf (0-5); RED CELLS - URINE 0-5 /hpf (0-5); WHITE CELLS - URINE 0-5 /hpf (0-5)
[2016-07-16 07:15] VITALS: BP 106/61; BP 161/96; Ht 180.3 cm; Wt 61.4 kg
[2016-07-16 07:54] VITALS: BP 106/61
[2016-07-16 08:07] LABS: BASOPHILS 0.6 % (0.0-2.0); EOSINOPHILS 7.3 % (0-7); LYMPHOCYTES 41.9 % (15-50); MCH 28.2 pg (26.0-34.0); MCHC 30.8 g/dL (31.0-37.0); MCV 91.8 fL (80.0-100.0); MEAN PLATELET VOLUME 11.1 fL (7.4-10.4); MONOCYTES 9.6 % (2-11); NEUTROPHILS 40.6 % (40-80); PLATELET COUNT 125 10x3/uL (130-400); RBC 4.25 10x6/uL (4.00-5.40); RDW 13.9 % (11.5-14.5)
[2016-07-16 08:11] LABS: WBC 3.1 10x3/uL (4.8-10.8)
--- NOTE | 2016-07-16 08:23 | NUR ---
RENEE UP TO THE RESTROOM. SHE C/O NAUSEA AND A HUNTER. PREOP MEDICATIONS GIVEN FOR HEART CATH. SHE CALLED HER , HE IS ON HIS WAY HERE. SHE HAS REMOVED A GOLD TENNIS BRACELET AND 4 GOLD RINGS WITH SEVERAL MULTICOLORED STONES. A CROSS NECKLACE
--- NOTE | 2016-07-16 08:44 | NUR ---
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
[2016-07-16 08:45] LABS: CALC OSMOLALITY 278 mosm/kg (275-300); CALCIUM 8.2 mg/dL (8.5-10.1); CARBON DIOXIDE 30.6 mmol/L (21.0-32.0); CHLORIDE - SERUM 106 mmol/L (98-107); CREATININE - SERUM 0.8 mg/dL (0.6-1.3); GLUCOSE 105 mg/dL (74-106); POTASSIUM - SERUM 4.2 mmol/L (3.5-5.1); SODIUM 141 mmol/L (136-145); UREA NITROGEN 8 mg/dL (7-18); eGFR NON AFRICAN AMERICAN 79 mL/min (90-120)
--- NOTE | 2016-07-16 09:45 | NUR ---
RESTING QUIETLY IN BED. VITAL SIGNS STABLE. 2L NC, NO RESP DISTRESS. NO C/O CHEST PAIN OR NAUSEA. RIGHT GROIN DRSG CDI, NO BLEEDING OR HEMATOMA NOTED. INSTRUCTED PT TO KEEP HEAD FLAT ON PILLOW AND RIGHT LEG STRAIGHT.
--- NOTE | 2016-07-16 10:15 | NUR ---
RESTING QUIETLY, VSS. RIGHT GROIN DRSG CDI, NO BLEEDING OR HEMATOMA NOTED. NO C/O CHEST PAIN OR NAUSEA. AT BEDSIDE, CALL LIGHT WITHIN REACH.
--- NOTE | 2016-07-16 10:30 | NUR ---
WATER GIVEN. NO C/O NAUSEA AT THIS TIME. RIGHT GROIN CDI. WILL CONTINUE TO MONITOR.
--- NOTE | 2016-07-16 11:00 | NUR ---
ASSISTED PT ONTO AND OFF BEDPAN. VOIDED 300CC OF CLEAR YELLOW URINE. SMALL HEMATOMA NOTED TO RIGHT GROIN. FEMSTOP PLACED TO RIGHT GROIN AT 158.
--- NOTE | 2016-07-16 11:30 | NUR ---
RESTING IN BED, VSS. FEMSTOP IN PLACE TO RIGHT GROIN. NO BLEEDING NOTED. AT BEDSIDE, CALL LIGHT WITHIN REACH.
--- NOTE | 2016-07-16 12:00 | NUR ---
FEMSTOP PRESSURE RELEASED BY 20. NO BLEEDING NOTED. SANDWICH TRAY GIVEN. NO C/O NAUSEA AT THIS TIME. WILL CONTINUE TO MONITOR.
--- NOTE | 2016-07-16 12:30 | NUR ---
FEMSTOP PRESSURE RELEASED BY 25. NO BLEEDING NOTED.
--- NOTE | 2016-07-16 13:31 | NUR ---
FEMSTOP REMOVED, HOB ELEVATED. R GROIN REMAINS C/D/I WITH NO HEMATOMA OR BLEEDING. PIV REMOVED FROM L HAND WITH BANDAID APPLIED. UP TO BEDSIDE TO DRESS WITH ASSIST FROM . R GROIN REMAINS C/D/I WITH NO HEMATOMA OR BLEEDING. D/C INSTRUCTIONS DISCUSSED WITH PATIENT AND AT BEDSIDE. WHEELED OUT VIA WHEELCHAIR BY SLAB WORKER TEAM.
--- NOTE | 2016-07-22 14:38 | CN ---
PATIENT NAME:RUTHIE CÁRDENAS MEDICAL RECORD: [id number] : 64 LOCATION:D.[facility] ADMIT DATE: ACCOUNT: [id number] CONSULTING PHYSICIAN: AKSHAT CRUM MD REFERRING PHYSICIAN: AKSHAT CRUM MD DATE OF CONSULTATION: 07/16/2016 Cardiology Consultation ADMITTING DIAGNOSES: 1. Unstable angina. 2. Coronary artery disease. 3. Recent PTCA stent of the LAD with concomitant disease of the left circumflex. 4. History of esophageal varices with gastrointestinal bleed. HISTORY OF PRESENT ILLNESS: Mrs. Cárdenas presents with anginal symptomatology in May. She had anginal symptomatology, Dr. Rico did angiogram. There was disease of the LAD and circumflex. He did successful PTCA stent of the LAD. She did well initially; however, began having anginal symptomatology. We reviewed the film, most likely at the ostium of the circumflex, it was a bare metal stent due to her varices. She had no GI bleeding. She is now off the Plavix. PHYSICAL EXAMINATION: GENERAL APPEARANCE: Well-nourished, well-developed, appears stated age. Level of distress, comfortable. PSYCHIATRIC: Mental status, alert, normal affect. Orientation, oriented to time, place and person. EYES: Lids and conjunctiva, noninjected. No discharge, no pallor. ENT: Lips, teeth, gums, normal dentition. Oropharynx, no cyanosis, no pallor. NECK: Carotid arteries, bilateral normal upstroke, no bruits, no thrills. JUGULAR VEINS: No jugular venous pressure or distention. CERVICAL LYMPH NODES: Nontender, nonenlarged. THYROID: Not enlarged. Nontender. No nodules. LUNGS: Respiratory effort, unlabored. CHEST: Normal curvature. No thoracic deformity. No chest wall tenderness. Percussion, resonant. Auscultation, clear. No wheezes, no rales, no rhonchi. CARDIOVASCULAR: Precordial exam, nondisplaced. No heaves or pericardial thrills. Rate and rhythm, regular. Heart sounds, normal S1, normal S2. No S3, no gallop, no rub. Systolic murmur, not heard. Diastolic murmur, not heard. EXTREMITIES: No cyanosis, no edema. Peripheral pulses, full and equal in all extremities, except as noted. No bruits appreciated. ABDOMEN: Soft, nondistended. Normal aorta. No bruit. Nontender. No masses. Liver, nontender, no hepatomegaly. Spleen, nontender, no splenomegaly. MUSCULOSKELETAL: No joint tenderness. No joint swelling. No erythema. NEUROLOGICAL: Normal gait, normal strength, normal tone. SKIN: Warm and dry. REVIEW OF SYSTEMS: The patient reports easy bruising but reports no swollen glands. The patient reports no fever, no night sweats, no significant weight gain, no significant weight loss. No significant exercise tolerance. The patient reports no dry eyes, no irritation, no vision change. Patient reports no difficulty hearing and no ear pain. Patient reports no frequent nose bleeds or nose and sinus problems. Patient reports on arm pain on exertion. No CONSULT REPORT [id number] RUTHIE CÁRDENAS shortness of breath while lying down. No history of heart murmur. Patient reports no cough, no wheezing or coughing up blood. Patient reports no abdominal pain, no vomiting. Normal appetite. No diarrhea and not vomiting blood. No nausea and no constipation. Patient reports no incontinence. No difficulty urinating. No hematuria. No increased frequency. Patient reports no muscle aches. No weakness, no arthralgias, no back pain. No swelling of the extremities. Patient reports no abnormal mole, no jaundice, no rashes. Reports no loss of consciousness. No weakness and no numbness. No seizures, dizziness, or headaches. The patient reports no depression, no sleep disturbance, feeling safe in a relationship and no alcohol abuse. Patient reports on fatigue. Reports no runny nose or sinus pressure. No itching, no hives, and no frequent sneezing. OVERALL IMPRESSION: Anginal symptomatology, most likely secondary to the circumflex. We will reevaluate the LAD, proceed with percutaneous transluminal coronary angioplasty stent of the circumflex if the LAD is still widely patent. TRANSINT:[id number] Voice Confirmation ID: [id number] DOCUMENT ID: [id number] AKSHAT CRUM MD at 1438 CC: [id number] DICTATION DATE: 07/16/16 0858 HUMAN SERVICES CASE MANAGER: 07/16/16 0917 DEP CLI 07/16/16 [place] [address]
--- NOTE | 2016-07-22 14:38 | OP ---
PATIENT NAME: RUTHIE PAUL MEDICAL RECORD: [id number] :64 LOCATION:[facility] ADMISSION DATE: SURGEON: AKSHAT CRUM MD DATE OF OPERATION: 07/16/2016 PROCEDURES: 1. PTCA stent, left circumflex. 2. Left heart catheterization. 3. Selective coronary angiography. 4. Left ventriculogram. INDICATIONS: Unstable angina and coronary artery disease. PROCEDURE IN DETAIL: After informed consent was obtained and after detailed explanation of risks, benefits as well as alternative therapies, the patient elected to proceed with angiogram and angioplasty. The right femoral area was prepped and draped in normal sterile fashion. The right femoral artery was cannulated via modified Seldinger technique with placement of a 6-[place]ore[place] sheath. All catheters exchanged through this sheath. FINDINGS: Left ventriculogram was performed in standard 30-degree GARCIA view, reveals good cardiac wall motion throughout all segments. Overall ejection fraction estimated 60%. SELECTIVE CORONARY ANGIOGRAPHY: 1. Left main is with no significant angiographic disease. 2. Left anterior descending has previously placed stents. These are widely patent with no significant restenosis. No disease elsewise at the LAD or its branches. 3. Left circumflex has 70%-75% stenosis at the ostium. 4. Right coronary has moderate irregularities, but no flow-limiting stenosis. PTCA STENT OF THE LEFT CIRCUMFLEX: The stent used was a 3.0 x 9 mm Integrity. Result was 0% residual stenosis. OVERALL IMPRESSION: Successful percutaneous transluminal coronary angioplasty stent of the left circumflex ostium going from 70% to 75% initial stenosis to 0% residual. TRANSINT:[id number] Voice Confirmation ID: [id number] DOCUMENT ID: [id number] AKSHAT CRUM MD at 1438 CC: [id number] DICTATION DATE: 07/16/16 0913 CLIENT SERVICE COORDINATOR: 07/16/16 0937 DEP CLI 07/16/[address] [address]
--- NOTE | 2016-07-24 08:41 | DS ---
PATIENT:RUTHIE CÁRDENAS :64 MEDICAL RECORD: [id number] DISCHARGE SUMMARY ADMISSION DATE: 07/15/16 DISCHARGE DATE: 07/16/16 DATE OF DISCHARGE: 07/16/2016 DIAGNOSES: 1. Angina. 2. Coronary artery disease. 3. Percutaneous transluminal coronary angioplasty stent left circumflex this admission. HOSPITAL COURSE: Mrs. Cárdenas presents with anginal symptomatology, underwent cardiac catheterization revealing significant disease of the left circumflex, underwent successful PTCA stent of the left circumflex. She was discharged home with the addition of aspirin and Plavix to her medical regimen. We will follow up with [facility] in 1 month. TRANSINT:[id number] Voice Confirmation ID: [id number] DOCUMENT ID: [id number] AKSHAT CRUM MD at 0841 CC: [id number] DICTATION DATE: 07/22/16 1452 PLANT PROTECTION SUPERINTENDENT: 07/23/16 0312 DEP CLI 07/16/16 [id number] [place] [address]
== END 2016-07-16 15:25 | disposition home or self-care (01) ==
LOC: OBSVTIME → D.OPS 19:57 → OBSVTIME 19:57 → D.M3 19:57 → D.ER 19:57 → EDSTATUS 07-16 12:00 → D.M3 07-16 15:25 → D.OPS 07-16 15:25
PROVIDERS: Emergency Medicine; Internal Medicine Interventional Cardiology
DX: I25.110 Atherosclerotic heart disease of native coronary artery with unstable angina pectoris (principal); Z95.5 Presence of coronary angioplasty implant and graft

== ENCOUNTER → 2016-11-04 17:17 | Outpatient (CLI) | payer MEDICARE, OTHER ==
[2016-07-16 07:15] VITALS: BMI 18.8
== END | disposition home or self-care (01) ==
LOC: D.MAMMO 15:45
DX: Z12.31 Encounter for screening mammogram for malignant neoplasm of breast (principal)

== ENCOUNTER 2016-11-06 20:43 | Emergency (ER) | payer MEDICARE, OTHER ==
[2016-07-16 07:15] VITALS: BMI 18.8
== END 2016-11-06 22:55 | disposition home or self-care (01) ==
LOC: D.ER 20:43
DX: S53.401A Unspecified sprain of right elbow, initial encounter (principal); W01.0XXA Fall on same level from slipping, tripping and stumbling without subsequent striking against object, initial encounter; Y93.89 Activity, other specified; Y92.512 Supermarket, store or market as the place of occurrence of the external cause; J44.9 Chronic obstructive pulmonary disease, unspecified

== ENCOUNTER → 2016-12-22 21:53 | Outpatient (CLI) | payer MEDICARE ==
[2016-07-16 07:15] VITALS: BMI 18.8
[2016-12-23 01:29] LABS: APPEARANCE HAZY (CLEAR); BILIRUBIN NEGATIVE (NEGATIVE); COLOR DK YELLOW (YELLOW); GLUCOSE NEGATIVE (NEGATIVE); KETONE NEGATIVE (NEGATIVE); LEUKOCYTE ESTERASE TRACE (NEGATIVE); NITRITE NEGATIVE (NEGATIVE); PROTEIN TRACE mg/dL (NEGATIVE); UROBILINOGEN NORMAL (NORMAL)
[2016-12-23 01:30] LABS: BACTERIA FEW /hpf (NONE SEEN); EPITHELIAL CELLS 0-5 /hpf (0-5); RED CELLS - URINE 0-5 /hpf (0-5); WHITE CELLS - URINE 0-5 /hpf (0-5)
== END | disposition home or self-care (01) ==
LOC: D.LABREF 21:53
PROVIDERS: Internal Medicine
DX: R31.9 Hematuria, unspecified (principal)

== ENCOUNTER → 2016-12-26 16:23 | Outpatient (CLI) | payer MEDICARE, OTHER ==
[2016-07-16 07:15] VITALS: BMI 18.8
== END | disposition home or self-care (01) ==
LOC: D.CT 12-24 13:30
DX: R31.9 Hematuria, unspecified (principal)

== ENCOUNTER 2017-01-08 05:53 | Day surgery (SDC) | payer MEDICARE, OTHER | END 2017-01-08 13:40 | disposition home or self-care (01) | LOC: D.OPS 05:53 | DX: N30.11 Interstitial cystitis (chronic) with hematuria (principal); J45.909 Unspecified asthma, uncomplicated; I25.10 Atherosclerotic heart disease of native coronary artery without angina pectoris; J44.9 Chronic obstructive pulmonary disease, unspecified; Z95.5 Presence of coronary angioplasty implant and graft; Z01.812 Encounter for preprocedural laboratory examination ==

== ENCOUNTER → 2017-02-09 18:14 | Outpatient (CLI) | payer MEDICARE, OTHER ==
[2017-01-08 09:50] VITALS: BMI 23.7
[~2017-02-09 18:14] MED LIST changes: +ZOLOFT100 MG PO
== END | disposition home or self-care (01) ==
LOC: D.LABREF 18:14
DX: N39.0 Urinary tract infection, site not specified (principal)

== ENCOUNTER → 2017-02-26 18:05 | Outpatient (CLI) | payer MEDICARE, OTHER ==
[2017-01-08 09:50] VITALS: BMI 23.7
== END | disposition home or self-care (01) ==
LOC: D.LABREF 18:05
DX: N39.0 Urinary tract infection, site not specified (principal)

== ENCOUNTER → 2017-03-11 18:27 | Outpatient (CLI) | payer MEDICARE, OTHER ==
[2017-01-08 09:50] VITALS: BMI 23.7
== END | disposition home or self-care (01) ==
LOC: D.LABREF 18:27
DX: N39.0 Urinary tract infection, site not specified (principal)

== ENCOUNTER → 2017-05-25 12:32 | Outpatient (CLI) | payer MEDICARE, OTHER ==
[2017-01-08 09:50] VITALS: BMI 23.7
[2017-05-25 14:05] LABS: BASOPHILS 0.2 % (0-2); EOSINOPHILS 2.2 % (0-7); HEMATOCRIT 42.3 % (36.0-48.0); HEMOGLOBIN 13.7 g/dL (12-16); IMMATURE GRANULOCYTES 0.2 % (0-5); LYMPHOCYTES 21.3 % (15-50); MCHC 32.4 g/dL (31.0-37.0); MCV 92.6 fL (80.0-100.0); MEAN PLATELET VOLUME 9.5 fL (7.4-10.4); MONOCYTES 7.2 % (2-11); NEUTROPHILS 68.9 % (40-80); PLATELET COUNT 143 10x3/uL (130-400); RBC 4.57 10x6/uL (4.00-5.40); RDW 13.6 % (11.5-14.5); WBC 6.3 10x3/uL (4.8-10.8)
[2017-05-30 03:11] LABS: IMMUNOGLOBULIN E 235 IU/mL (0-100)
== END | disposition home or self-care (01) ==
LOC: D.RT 04-28 11:00 → D.LAB 04-28 12:00 → D.RT 05-04 09:00 → D.LAB 05-04 10:15 → D.RT 12:32
PROVIDERS: Internal Medicine Pulmonary Disease
DX: J44.9 Chronic obstructive pulmonary disease, unspecified (principal)

== ENCOUNTER 2017-05-26 18:20 | Emergency (ER) | payer MEDICARE, OTHER ==
[2017-01-08 09:50] VITALS: BMI 23.7
[2017-05-26 18:55] LABS: BASOPHILS 0.2 % (0-2); EOSINOPHILS 1.9 % (0-7); HEMATOCRIT 39.2 % (36.0-48.0); HEMOGLOBIN 12.8 g/dL (12-16); IMMATURE GRANULOCYTES 0.2 % (0-5); LYMPHOCYTES 26.9 % (15-50); MCH 29.8 pg (26.0-34.0); MCHC 32.7 g/dL (31.0-37.0); MCV 91.4 fL (80.0-100.0); MONOCYTES 7.5 % (2-11); NEUTROPHILS 63.3 % (40-80); PLATELET COUNT 143 10x3/uL (130-400); RBC 4.29 10x6/uL (4.00-5.40); RDW 13.7 % (11.5-14.5); WBC 5.7 10x3/uL (4.8-10.8)
[2017-05-26 19:19] LABS: ALBUMIN 3.5 g/dL (3.4-5.0); ALKALINE PHOSPHATASE 111 U/L (46-116); ALT (SGPT) 23 U/L (10-68); CALC OSMOLALITY 277 mosm/kg (275-300); CALCIUM 8.4 mg/dL (8.5-10.1); CARBON DIOXIDE 28.5 mmol/L (21.0-32.0); CHLORIDE - SERUM 104 mmol/L (98-107); CREATININE - SERUM 0.7 mg/dL (0.6-1.3); GLUCOSE 102 mg/dL (74-106); POTASSIUM - SERUM 3.8 mmol/L (3.5-5.1); PROTEIN - SERUM 7.1 g/dL (6.4-8.2); SODIUM 140 mmol/L (136-145); UREA NITROGEN 11 mg/dL (7-18); eGFR NON AFRICAN AMERICAN > 90 mL/min (90-120)
[2017-05-26 19:28] LABS: CHOL - HDL RATIO 2.5 ratio (2.3-4.1); CHOLESTEROL, TOTAL 194 mg/dL (0-200); CKMB 0.3 U/L (0.0-3.6); CREATINE KINASE 43 UL (21-215); HDL CHOLESTEROL 78 mg/dL (32-96); LDL CHOLESTEROL 87 mg/dL (0-100); LDL-HDL RATIO 1.1 ratio (1.5-3.5); TRIGLYCERIDE 145 mg/dL (30-200); TROPONIN-I < 0.017 ng/mL (0.000-0.060)
== END 2017-05-26 23:38 | disposition home or self-care (01) ==
LOC: D.ER 18:20
PROVIDERS: Emergency Medicine
DX: R07.9 Chest pain, unspecified (principal); M50.30 Other cervical disc degeneration, unspecified cervical region; I10 Essential (primary) hypertension; J45.909 Unspecified asthma, uncomplicated

== ENCOUNTER 2017-06-01 10:33 | Outpatient (CLI) | payer MEDICARE, OTHER ==
[~2017-06-01] VITALS: Ht 180.3 cm; Wt 77.3 kg
--- NOTE | ~2017-06-01 | HEMODYNAMI ---
PATIENT:RUTHIE PAUL MEDICAL RECORD: [id number] : 64 LOCATION:[facility] ADMISSION DATE: 06/01/17 Generatedon:06/01/201713:43 Patient name: RUTHIE PAUL Patient #: [id number] : 1960 Date of study: 06/01/2017 Page: Of Hemodynamic Procedure Report Patient Data Patient Demographics Procedure consent was obtained First Name: RUTHIE Gender: Female Last Name: HUMBERTO : 1960 [facility] Initial: LEVI Age: 56 year(s) Patient #: [id number] Race: SSN: [id number] Additional ID: [id number] Contact details Address: [address] [place] [address] State: [place] City: [place] Zip code: [address] Past Medical History Allergies Allergen Reaction Date Comments Reported Other 01/02/2016 metoclopramide hcl, zolpidem allergy tartrate,pcn,ambien,doxycyclin,vancomycin,macrobid . Other 06/01/2017 See chart allergy Admission Admission Data Admission Date: 06/01/2017 Admission Time: 10:33 Lab Results Lab Result Date: 06/01/2017 Lab Result Time: 0:00 Biochemistry Name Units Result Min Max BUN mg/dl 10 --(-*--)-- 7 18 Creatinine mg/dl 0.8 --(-*--)-- 0.6 1.3 CBC Name Units Result Min Max Hemoglobin g/dl 13.7 --(*---)-- 13.5 17.5 Procedure Procedure Types Cath Procedure Diagnostic Procedure LHC LHC w/Coronaries PCI Procedure PTCA PTCA Initial Procedure Description Procedure Date Procedure Date: 06/01/2017 Procedure Start Time: 13:06 Procedure End Time: 13:34 Procedure Staff Name Function Yue Mchugh RT Scrub Jani Rico MD Performing Physician Sofía Martines RT Monitor Maya Vu RN Nurse Indication Angina Procedure Data Cath Procedure Fluoroscopy Diagnostic fluoroscopy Total fluoroscopy Time: 4.6 time: 4.6 min min Diagnostic fluoroscopy Total fluoroscopy dose: 544 dose: 544 mGy mGy Contrast Material Contrast Material Type Amount (ml) Isovue 300 108 Entry Location Entry Primary Successful Side Size Upsize Upsize Entry Closure Succes sful Closure Location (Fr) 1 (Fr) 2 (Fr) Remarks Device Remarks Femoral Right 5 Fr 6 Fr Exoseal artery Short Estimated blood loss: 10 ml Diagnostic catheters Device Type Used For End Catheter Placement MULTIPACK JL 4.0 5Fr Procedure catheter MULTIPACK 3DRC 5Fr Procedure catheter MULTIPACK Pigtail 5 Fr Procedure catheter Procedure Complications No complications Procedure Medications Medication Administration Route Dosage 0.9% NaCl I.V. 100 ml/hr Oxygen NC 2 l/min Lidocaine 2% added to field 20 Heparin Flush Bag added to field 2 bags (1000units/500ml NS) Zofran I.V. 4 mg Fentanyl I.V. 50 mcg Versed I.V. 1 mg Versed I.V. 1 mg Fentanyl I.V. 50 mcg Fentanyl I.V. 50 mcg Versed I.V. 1 mg Versed I.V. 1 mg Heparin Bolus I.V. 7000 units Fentanyl I.V. 50 mcg Nitroglycerin IC/IA I.C. 100 mcg Plavix P.O. 600 mg Hemodynamics Rest HGB: 13.7 (g/dl) Heart Rate: 63 (bpm) Pressure Samples Time Site Value (mmHg) Purpose Heart Use Rate(bpm) 13:14 LV 112/-8,12 Snapshot 63 13:14 LV 120/-4,18 Pullback 63 13:14 AO 116/65(88) Pullback 63 Gradients Valve Time Site 1 Site 2 Mean SEP/DFP Peak To Heart Use (mmHg) (sec/min) Peak Rate (mmHg) (bpm) Aortic 13:14 LV AO 12 13 4 63 120/-4,18 116/65(88) Calculations Valve P-P Mean Valve Index Valve Source Name Gradient Area Flow (cm2) Aortic 4 12 4 12 Snapshots Pre Cath Intra NCS Post Cath Vital Signs Time Heart Resp SPO2 etCO2 NIBP (mmHg) Rhythm Pain Sedation Rate (ipm) (%) (mmHg) Status Level (bpm) 12:49:58 71 19 100 33.7 134/82(119) NSR 0 (11) 10(A) , No pain 12:54:06 77 18 100 39.7 140/86(99) NSR 0 (11) 10(A) , No pain 12:58:22 66 18 99 33.7 122/68(99) NSR 0 (11) 10(A) , No pain 13:02:32 62 16 97 34.5 120/68(86) NSR 0 (11) 10(A) , No pain 13:06:38 67 16 99 38.2 126/74(98) NSR 0 (11) 10(A) , No pain 13:10:48 68 16 96 9.7 112/68(81) NSR 0 (11) 9(A) , No pain 13:14:56 62 18 98 32.9 110/59(78) NSR 0 (11) 9(A) , No pain 13:18:59 63 18 99 32.9 108/70(90) NSR 0 (11) 10(A) , No pain 13:23:05 69 19 98 29.9 110/59(85) NSR 0 (11) 9(A) , No pain 13:27:13 65 18 97 35.2 106/56(82) NSR 0 (11) 9(A) , No pain 13:31:19 70 16 98 34.4 103/59(75) NSR 0 (11) 10(A) , No pain Medications Time Medication Route Dose Verified Delivered Reason No tram Effectiveness by by 12:49:08 0.9% NaCl I.V. 100ml/hr Jani Maya used for Jacky Vu RN procedure 12:49:16 Oxygen NC 2 l/min Jani Maya for arrhythmia Jacky Vu RN 12:49:28 Lidocaine 2% added 20ml vial Jani Jani for local to Jacky Rico MD anesthetic field 12:49:35 Heparin Flush added 2 bags Jani Jani used for Bag to Jacky Rico MD procedure (1000units/500ml field NS) 12:49:53 Zofran I.V. 4 mg Jani Maya nausea Jacky Vu RN 13:02:43 Fentanyl I.V. 50 mcg Jani Maya for sedation Jacky Vu RN 13:02:52 Versed I.V. 1 mg Jani Maya for sedation Jacky Vu RN 13:05:29 Versed I.V. 1 mg Jani Maya for sedation Jacky Vu RN 13:05:40 Fentanyl I.V. 50 mcg Jani Maya for sedation Jacky Vu RN 13:08:32 Fentanyl I.V. 50 mcg Jani Maya for sedation Jacky Vu RN 13:08:48 Versed I.V. 1 mg Jani Maya for sedation Jacky Vu RN 13:11:37 Heparin Bolus I.V. 7000units Jani Maya for ve rajied Jacky Vu RN anticoagulation by 13:11:37 Versed I.V. 1 mg Jani Maya for sedation Jacky Vu RN 13:19:12 Fentanyl I.V. 50 mcg Jani Maya for sedation ve rajied Jacky Vu RN by 13:19:18 Nitroglycerin I.C. 100mcg Jani Jani for ve rified IC/IA Jacky Rico MD vasodilation by 13:41:22 Plavix P.O. 600 mg Jani Maya for Jacky Vu RN antiplatelet therapy Procedure Log Time Note 12:35:24 Indication : Angina 12:35:28 Sofía Martines RT(R) sent for patient. Start room use. 12:35:29 Time tracking: Regular hours 12:35:34 Plan of Care:Hemodynamics will remain stable., Cardiac rhythm will remain stable., Comfort level will be maintained., Respiratory function will remain adequate., Patient/ family verbilizes understanding of procedure., Procedure tolerated without complication., Recovers from procedure without complications.. 12:41:56 Patient received from Pre/Post Procedure Room to CCL 2 Alert and oriented. Tansferred to table in Supine position. 12:41:58 Warm blankets applied, and yeni hugger turned on for patient comfort. 12:42:00 Correct patient and procedure confirmed by team. 12:42:08 Signed procedure consent form obtained from patient. 12:42:10 ECG and BP/O2 sat monitors applied to patient. 12:42:28 H&P Date Dictated: 05/27/2017 Within 30 days and on chart., H&P Addendum completed by physician on day of procedure. (MUST COMPLETE FOR ALL OUTPATIENTS). 12:42:29 Pre-procedure instructions explained to patient. 12:42:32 Family in waiting room. 12:42:36 Patient NPO since Midnight. 12:43:42 Patient allergic to Other allergySee chart 12:43:54 Was the patient premedicated? Yes 12:44:24 Is patient on blood thinner?No 12:44:28 Patient diabetic? No. 12:44:40 Snore? No 12:46:00 Sleep apnea? Yes 12:46:18 Airway obstruction? Yes COPD 12:46:59 Patient pain scale 0/10 ?. 12:47:37 IV patent on arrival in right forearm with 0.9% NaCl at [facility]. 12:48:51 Vital chart was started 12:49:08 0.9% NaCl 100ml/hr I.V. was administered by Maya Vu RN; used for procedure; 12:49:16 Oxygen 2 l/min NC was administered by Maya Vu RN; for arrhythmia; 12:49:20 Lab results completed and on chart. 12:49:28 Lidocaine 2% 20ml vial added to field was administered by Jani Rico MD; for local anesthetic; 12:49:35 Heparin Flush Bag (1000units/500ml NS) 2 bags added to field was administered by Jani Rico MD; used for procedure; 12:49:53 Zofran 4 mg I.V. was administered by Maya Vu RN; nausea; 12:57:43 Lab Result : Hemoglobin 13.7 g/dl 12:57:43 Lab Result : Creatinine 0.8 mg/dl 12:57:43 Lab Result : BUN 10 mg/dl 12:57:52 Right groin area was prepped with chlora-prep and draped in sterile fashion 12:57:53 Alarms reviewed by R. N. 12:57:54 Sharps counted by scrub and verified by R.N. 12:57:55 Physician paged 13:01:35 Physician arrived 13:01:36 --------ALL STOP TIME OUT------ 13:01:37 Final Timeout: patient, procedure, and site verified with staff and physician. All members of the team are in agreement. 13:01:38 Right groin site verified by team. 13:01:55 Physical assessment completed. ASA score P 2 - A patient with mild systemic disease as per Jani Rico MD. 13:02:01 Sedation plan: IV Moderate Sedation Medication:Versed, Fentanyl 13:02:06 Use device set Femoral Dx 13:02:22 Zero performed for pressure channel P1 13:02:43 Fentanyl 50 mcg I.V. was administered by Maya Vu RN; for sedation; 13:02:52 Versed 1 mg I.V. was administered by Maya Vu RN; for sedation; 13:05:29 Versed 1 mg I.V. was administered by Maya Vu RN; for sedation; 13:05:40 Fentanyl 50 mcg I.V. was administered by Maya Vu RN; for sedation; 13:05:50 Full Disclosure recording started 13:05:50 Procedure started. 13:06:01 Local anesthetic to right femoral artery with Lidocaine 2% by Jani Rico MD.INITIAL ACCESS ONLY 13:06:10 A 5 Fr sheath was inserted into the Right Femoral artery 13:06:23 Bag Decanter (2002S) opened to sterile field. 13:06:23 ACIST Syringe (56850) opened to sterile field. 13:06:29 Medline Cath Pack ([id number]) opened to sterile field. 13:06:30 SHEATH 5FR [place] (JAO404) opened to sterile field. 13:06:31 DIAGNOSTIC WIRE .035 260cm J wire (984314) opened to sterile field. 13:06:32 ACIST Hand Control (87938) opened to sterile field. 13:06:33 ACIST Manifold (02196) opened to sterile field. 13:06:34 DIAGNOSTIC Multipack 5Fr catheter set ([id number]) opened to sterile field. 13:06:50 Tegaderm 4 x 4 (1626W) opened to sterile field. 13:06:51 PERCUTANEOUS ENTRY 19GA needle opened to sterile field. 13:07:50 A MULTIPACK JL 4.0 5Fr catheter was advanced over the wire and used for Procedure. 13:08:32 Fentanyl 50 mcg I.V. was administered by Maya Vu RN; for sedation; 13:08:48 Versed 1 mg I.V. was administered by Maya Vu RN; for sedation; 13:11:37 Heparin Bolus 7000units I.V. was administered by Maya Vu RN; for anticoagulation; verified by 13:11:37 Versed 1 mg I.V. was administered by Maya Vu RN; for sedation; 13:11:48 LCA angiography performed. 13:11:52 Catheter removed. 13:12:00 A MULTIPACK 3DRC 5Fr catheter was advanced over the wire and used for Procedure. 13:13:02 RCA angiography performed. 13:13:34 Catheter removed. 13:13:44 A MULTIPACK Pigtail 5 Fr catheter was advanced over the wire and used for Procedure. 13:14:53 LV gram done using GARCIA 13:14:59 EF : 50 % 13:15:30 Catheter removed. 13:15:59 Sheath upsized to a 6 Fr Short. 13:16:15 SHEATH 6FR [place] (HMG272) opened to sterile field. 13:16:36 6 Fr XBLAD 3.5 guide catheter was inserted over the wire 13:16:51 TUBING High Pressure Extension Tubing (Jacky) ([id number]) opened to sterile field. 13:17:49 BMW 300cm Straight [place] 2 wire ([id number]) opened to sterile field. 13:17:49 INFLATOR Merit BasixCompak (KI2063) opened to sterile field. 13:18:00 GUIDE 6FR XBLAD 3.5 catheter ([id number]) opened to sterile field. 13:18:08 Wire advanced across lesion. 13:18:16 Wire redirected to BMW. 13:19:12 Fentanyl 50 mcg I.V. was administered by Maya Vu RN; for sedation; verified by 13:19:18 Nitroglycerin IC/IA 100mcg I.C. was administered by Jani Rico MD; for vasodilation; verified by 13:24:15 Inflation number: 1 A MAVERICK 2.5 X 12 balloon ([id number]) was prepped and advanced across the Mid LAD, then inflated to 12 ELE for 0:16 (min:sec). 13:25:39 Inflation number: 2 The MAVERICK 2.5 X 12 balloon ([id number]) was reinflated across the Mid LAD, to 13 ELE for 0:32 (min:sec). 13:26:26 Balloon removed over the wire. 13:32:20 Wire removed. 13:32:21 Guide catheter removed. 13:32:32 Sheath removed intact; hemostasis achieved with Exoseal to the Right Femoral artery. 13:32:35 Procedure ended.(Physican Out) 13:32:50 Fluoroscopy time 04.60 minutes. 13:32:55 Fluoroscopy dose: 544 mGy 13:33:14 Flurop Dose total: 544 13:33:20 Contrast amount:Isovue 300 108ml. 13:33:21 Sharps counted by scrub and verified by R.N. 13:33:27 Post-op/insertion site Right Femoral artery dressed using a 4 x 4 and Tegaderm. 13:33:28 Post Procedure Pulses reassessed and unchanged 13:33:30 Post-procedure physical assessment completed. ASA score P 2 - A patient with mild systemic disease as per Jani Rico MD. 13:33:34 Post procedure rhythm: sinus rhythm 13:33:38 Estimated blood loss: 10 ml 13:33:40 Post procedure instruction explained to patient.Patient verbalizes understanding. 13:33:41 Patient needs reinforcement of post procedure teaching. 13:33:59 Procedure type changed to Cath procedure, Diagnostic procedure, LHC, LHC w/Coronaries, PCI procedure, PTCA, PTCA Initial 13:34:02 Procedure and supply charges have been captured, reviewed, submitted and are correct. 13:34:35 Procedure Complication : No complications 13:34:37 Vital chart was stopped 13:34:39 See physician's report for complete and final results. 13:34:41 Report given to Pre/Post Procedure Room. 13:34:45 Patient transfered to Pre/Post Procedure Room with Stretcher. 13:34:47 Full Disclosure recording stopped 13:34:47 Procedure ended. 13:34:56 End room use (Document Last) 13:41:22 Plavix 600 mg P.O. was administered by Maya Vu RN; for antiplatelet therapy; Intervention Summary Intervention Notes Time ActionType Lesion and Equipment Action# Pressure Duration Attributes Used 13:24:15 Inflate Mid LAD MAVERICK 2.5 1 12 00:16 balloon X 12 balloon ([id number]) 13:25:39 Reinflate Mid LAD MAVERICK 2.5 2 13 00:32 balloon X 12 balloon ([id number]) Device Usage Item Name Manufacture Quantity Catalog Number Hospital Part Current Min imal Lot# / Charge Number Stock Stock Serial# Code ACIST Acist 1 17861 707899 481047 896046 20 Syringe Medical (74081) Systems Inc Bag Decanter Microtek 1 2001S 351825 02535 058818 5 (2001S) Medical Inc. Medline Cath Cardinal 1 [id number] 528651 42472 384074 5 Pack Health ([id number]) SHEATH 5FR Terumo 1 POK743 339738 065943 275194 40 [place] (HRG176) DIAGNOSTIC St Minh 1 165022 694829 502856 331383 30 WIRE .035 260cm J wire (694822) ACIST Hand Acist 1 09723 609718 872701 177238 5 Control Medical (43213) Systems Inc ACIST Acist 1 68402 107183 560508 964572 5 Manifold Medical (89441) Systems Inc DIAGNOSTIC Cardinal 1 UQ4679 830637 27553 969911 30 Multipack Health 5Fr catheter set (WS7043) Tegaderm 4 x 3M 1 1626W 238493 134586 897002 5 4 (1626W) PERCUTANEOUS Cook [facility] 1 U71680 460395 304833 5 ENTRY 19GA needle MULTIPACK JL Cardinal 1 841045 5 4.0 5Fr Health catheter MULTIPACK Cardinal 1 709852 5 3DRC 5Fr Health catheter MULTIPACK Cardinal 1 756174 5 Pigtail 5 Fr Health catheter SHEATH 6FR Terumo 1 QQP158 881808 048973 592172 40 [place] (YCU145) TUBING High Merit 1 [id number] 719665 06302 441634 10 Pressure Medical Extension Tubing (Rico) (PR7012I) INFLATOR Merit 1 YX9226 707000 650321 249516 15 [facility] Medical BasixCompak (HJ5526) BMW 300cm Mosley 1 4857384 572530 233001 291437 5 Straight Vascular Edge[place] 2 wire (3477285) GUIDE 6FR Cardinal 1 [id number] 581583 797321 269548 10 XBLAD 3.5 Health catheter (42370801) MAVERICK 2.5 [place] 1 [id number] 488196 115039 132090 1 [id number] X 12 Grow Mobile Scientific ([id number]) Signature Audit [place] Stage Time Signature Unsigned Intra-Procedure 06/01/2017 Sofía Martines RT(R) 1:38:20 PM RT(R) 06/01/2017 1:41:04 PM Intra-Procedure 06/01/2017 Sofía Martines 1:43:53 PM RT(R) Signatures Monitor : Sofía Martines Signature : RT Date : Time : [place] [id number] [facility] [place] [address]
[2017-06-01 10:59] VITALS: BP 139/66; Ht 180.3 cm; Wt 77.3 kg
[2017-06-01 11:10] LABS: BASOPHILS 0.4 % (0-2); EOSINOPHILS 3.6 % (0-7); HEMATOCRIT 42.7 % (36.0-48.0); HEMOGLOBIN 13.7 g/dL (12-16); IMMATURE GRANULOCYTES 0.2 % (0-5); LYMPHOCYTES 29.3 % (15-50); MCH 29.5 pg (26.0-34.0); MCHC 32.1 g/dL (31.0-37.0); MEAN PLATELET VOLUME 9.7 fL (7.4-10.4); MONOCYTES 5.9 % (2-11); NEUTROPHILS 60.6 % (40-80); PLATELET COUNT 147 10x3/uL (130-400); RBC 4.64 10x6/uL (4.00-5.40); RDW 13.6 % (11.5-14.5); WBC 4.8 10x3/uL (4.8-10.8)
[2017-06-01 11:20] LABS: CALC OSMOLALITY 287 mosm/kg (275-300); CALCIUM 8.6 mg/dL (8.5-10.1); CARBON DIOXIDE 29.3 mmol/L (21.0-32.0); CHLORIDE - SERUM 108 mmol/L (98-107); CREATININE - SERUM 0.8 mg/dL (0.6-1.3); GLUCOSE 98 mg/dL (74-106); POTASSIUM - SERUM 3.9 mmol/L (3.5-5.1); SODIUM 145 mmol/L (136-145); UREA NITROGEN 10 mg/dL (7-18); eGFR NON AFRICAN AMERICAN 79 mL/min (90-120)
[2017-06-01] MEDS ORDERED: PLAVIX75 MG PO (13:56)
== END 2017-06-01 17:43 | disposition home or self-care (01) ==
LOC: D.CATH 10:33
PROVIDERS: Internal Medicine Cardiovascular Disease
DX: I25.119 Atherosclerotic heart disease of native coronary artery with unspecified angina pectoris (principal); T82.855A Stenosis of coronary artery stent, initial encounter; Z01.812 Encounter for preprocedural laboratory examination

== ENCOUNTER 2017-08-30 17:30 | Observation (INO) | payer MEDICARE, OTHER ==
[~2017-08-30] VITALS: Ht 180.3 cm; Wt 74.5 kg
--- NOTE | ~2017-08-30 | HEMODYNAMI ---
PATIENT:RUTHIE PAUL MEDICAL RECORD: [id number] : 64 LOCATION:[facility] D2125 ADMISSION DATE: 08/30/17 Generatedon:08/31/201711:46 Patient name: RUTHIE PAUL Patient #: [id number] : 1960 Date of study: 08/31/2017 Page: Of Hemodynamic Procedure Report Patient Data Patient Demographics Procedure consent was obtained First Name: RUTHIE Gender: Female Last Name: HUMBERTO : 1960 [facility] Initial: LEVI Age: 56 year(s) Patient #: [id number] Race: SSN: [id number] Additional ID: [id number] Contact details [address]: [address] [place] [address] State: [place] City: [place] Zip code: [address] Past Medical History Allergies Allergen Reaction Date Comments Reported Other 01/02/2016 metoclopramide hcl, zolpidem allergy tartrate,pcn,ambien,doxycyclin,vancomycin,macrobid . Other 06/01/2017 See chart allergy Admission Admission Data Admission Date: 08/30/2017 Admission Time: 20:17 Room #: D.2125 Procedure Procedure Types Cath Procedure Diagnostic Procedure [facility] w/Coronaries PCI Procedure Coronary Stent Coronary Stent Initial Procedure Description Procedure Date Procedure Date: 08/31/2017 Procedure Start Time: 11:28 Procedure End Time: 11:42 Procedure Staff Name Function Juan Diego Rubi MD Performing Physician Yue Mchugh RT Monitor Sofía Martines RT Scrub Aaron Gaspar RN Nurse Procedure Data Cath Procedure Fluoroscopy Diagnostic fluoroscopy Total fluoroscopy Time: 2.5 time: 2.5 min min Diagnostic fluoroscopy Total fluoroscopy dose: dose: 95.12 mGy 95.12 mGy Contrast Material Contrast Material Type Amount (ml) Isovue 300 53 Entry Location Entry Primary Successful Side Size Upsize Upsize Entry Closure Succes sful Closure Location (Fr) 1 (Fr) 2 (Fr) Remarks Device Remarks Femoral Right 5 Fr 6 Fr Exoseal artery Short Estimated blood loss: 5 ml Diagnostic catheters Device Type Used For End Catheter Placement MULTIPACK Pigtail 5 Fr LV Angiography catheter MULTIPACK JL 4.0 5Fr Left Coronary catheter Angiography MULTIPACK 3DRC 5Fr Right Coronary catheter Angiography Procedure Complications No complications Procedure Medications Medication Administration Route Dosage Oxygen etCO2 Nasal cannula 2 l/min Heparin Flush Bag added to field 2 bags (1000units/500ml NS) 0.9% NaCl I.V. ml/hr Lidocaine 2% added to field 20 Versed I.V. 1 mg Fentanyl I.V. 50 mcg Heparin Bolus I.V. 4000 units Integrilin (Bolus I.V. 6.8 ml 2mg/ml) Plavix P.O. 600 mg Hemodynamics Rest Heart Rate: 51 (bpm) Pressure Samples Time Site Value (mmHg) Purpose Heart Use Rate(bpm) 11:31 LV 20/6,6 Snapshot 53 Snapshots Pre Cath Intra NCS Post Cath Vital Signs Time Heart Resp SPO2 etCO2 NIBP Rhythm Pain Sedation Rate (ipm) (%) (mmHg) (mmHg) Status Level (bpm) 11:23:43 55 18 96 0 115/66(81) NSR 0 (11) 10(A) , No pain 11:21:34 51 17 98 42.1 Measuring NSR 0 (11) 10(A) , No pain 11:28:59 53 16 98 44.4 89/48(68) NSR 0 (11) 9(A) , No pain 11:32:03 54 16 97 47.4 92/51(66) NSR 0 (11) 9(A) , No pain 11:36:12 61 15 96 53.4 96/53(72) NSR 0 (11) 9(A) , No pain 11:39:20 63 15 98 47.4 93/56(68) NSR 0 (11) 9(A) , No pain 11:45:26 59 16 98 48.9 97/58(74) NSR 0 (11) 10(A) , No pain Medications Time Medication Route Dose Verified Delivered Reason Notes Effectiveness by by 11:09:43 Oxygen etCO2 2 Juan Diego Walker Per physician Nasal l/min Greyson Gaspar RN cannula 11:10:07 Heparin Flush added 2 Juan Diego Walker used for Bag to bags Greyson Gaspar food service substitute (1000units/500ml field NS) 11:10:13 0.9% NaCl I.V. ml/hr Juan Diego Walker Per physician Greyson Gaspar RN 11:23:26 Lidocaine 2% added 20ml Juan Diego Walker for local to vial Greyson Gaspar RN anesthetic field 11:25:59 Versed I.V. 1 mg Juan Diego Walker for sedation Greyson Gaspar RN 11:26:05 Fentanyl I.V. 50 Juan Diego Walker for sedation mcg Greyson Gaspar RN 11:35:37 Heparin Bolus I.V. 4000 Juan Diego Walker for verif ied units Greyson Gaspar RN anticoagulation with dr rubi 11:38:33 Integrilin I.V. 6.8 Juan Diego Walker for Waste d (Bolus 2mg/ml) ml Greyson Gaspar RN antiplatelet 3.2 ml therapy of vial 11:45:01 Plavix P.O. 600 Juan Diego Walker for mg Greyson Gaspar RN antiplatelet therapy Procedure Log Time Note 10:50:24 Yue Mchugh RT(R) sent for patient. Start room use. 11:08:21 Diagnostic Cath Status : Elective 11:08:34 Time tracking: Regular hours (M-F 7:00 - 5:00) 11:08:39 Plan of Care:Hemodynamics will remain stable., Cardiac rhythm will remain stable., Comfort level will be maintained., Respiratory function will remain adequate., Patient/ family verbilizes understanding of procedure., Procedure tolerated without complication., Recovers from procedure without complications.. 11:08:46 Patient received from Med II to CCL 3 Alert and oriented. Tansferred to table in Supine position. 11:08:47 Warm blankets applied, and yeni hugger turned on for patient comfort. 11:08:48 Correct patient and procedure confirmed by team. 11:08:49 Signed procedure consent form obtained from patient. 11:08:50 ECG and BP/O2 sat monitors applied to patient. 11:08:58 Vital chart was started 11:08:59 Baseline sample Acquired. 11:09:05 Rhythm: sinus rhythm 11:09:07 Full Disclosure recording started 11:09:11 H&P Date Dictated: 08/31/2017 New H&P dictated by physician.. 11:09:14 Pre-procedure instructions explained to patient. 11:09:14 Pre-op teaching completed and patient verbalized understanding. 11:09:15 Family in waiting room. 11:09:16 Patient NPO since Midnight. 11:09:18 Is the patient allergic to Iodine/contrast media? No. 11::19 Was the patient premedicated? No 11:09:20 Is patient on blood thinner?No 11:09:22 Patient diabetic? No. 11:09:24 Previous problem with sedation/anesthesia? No ? 11::26 Snore? No 11::27 Sleep apnea? No 11:09:40 Deviated septum? No 11::41 Opens mouth fully? Yes 11:09:42 Sticks out tongue? Yes 11::43 Oxygen 2 l/min etCO2 Nasal cannula was administered by Aaron Gaspar RN; Per physician; 11::44 Airway obstruction? No ? 11:09:47 Dentures? No ? 11:09:55 Pre procedure: right dorsailis pedis pulse 1+ Palpable, but thready & weak; easily obliterated 11:09:57 Pre procedure: left dorsailis pedis pulse 1+ Palpable, but thready & weak; easily obliterated 11:10:00 Patient pain scale 0/10 ?. 11:10:06 IV patent on arrival in left forearm with 0.9% NaCl at [facility]. 11:10:07 Heparin Flush Bag (1000units/500ml NS) 2 bags added to field was administered by Aaron Gaspar RN; used for procedure; 11:10:10 Lab results completed and on chart. 11:10:13 0.9% NaCl ml/hr I.V. was administered by Aaron Gaspar RN; Per physician; ::24 Right groin area was prepped with chlora-prep and draped in sterile fashion ::25 Alarms reviewed by R. N. ::25 Sharps counted by scrub and verified by R.N. 11:23:05 Zero performed for pressure channel P1 ::26 Lidocaine 2% 20ml vial added to field was administered by Aaron Gaspar RN; for local anesthetic; 11:25:25 Physician arrived 11:: Physician arrived :: --------ALL STOP TIME OUT------ 11:25:30 Final Timeout: patient, procedure, and site verified with staff and physician. All members of the team are in agreement. 11:25:34 Right groin site verified by team. 11:25:38 Physical assessment completed. ASA score P 2 - A patient with mild systemic disease as per Juan Diego Rubi MD. 11:25:42 Sedation plan: IV Moderate Sedation Medication:Versed, Fentanyl 11:25:51 Use device set Femoral Dx 11:25:52 ACIST Syringe (83877) opened to sterile field. 11:25:52 Bag Decanter (2002S) opened to sterile field. 11:25:53 Medline Cath Pack ([id number]) opened to sterile field. 11:25:53 DIAGNOSTIC WIRE .035 260cm J wire (980487) opened to sterile field. 11:25:54 ACIST Hand Control (54285) opened to sterile field. 11:25:55 ACIST Manifold (06740) opened to sterile field. 11:25:55 DIAGNOSTIC Multipack 5Fr catheter set (QS1267) opened to sterile field. 11:25:55 Tegaderm 4 x 4 (1626W) opened to sterile field. 11:25:59 Versed 1 mg I.V. was administered by Aaron Gaspar RN; for sedation; 11:26:01 SHEATH Prelude 5Fr 0.035 (NBS-4I-54-035) opened to sterile field. 11:26:05 Fentanyl 50 mcg I.V. was administered by Aaron Gaspar RN; for sedation; 11:28:20 Procedure started. 11:28:23 Local anesthetic to right femoral artery with Lidocaine 2% by Juan Diego Rubi MD.INITIAL ACCESS ONLY 11::33 A 5 Fr sheath was inserted into the Right Femoral artery 11::55 A MULTIPACK Pigtail 5 Fr catheter was advanced over the wire and used for LV Angiography. 11::25 LV hemodynamics recorded. ::28 LV gram done using GARCIA :: Injector settings: Ml/sec: 5, Volume: 15, 11::39 EF : 50 % 11::55 Catheter removed. 11:32:00 A MULTIPACK JL 4.0 5Fr catheter was advanced over the wire and used for Left Coronary Angiography. 11:32:08 LCA angiography performed. 11::43 Injector settings: Ml/sec: 3, Volume: 6, 11:33:20 Catheter removed. 11:33:25 A MULTIPACK 3DRC 5Fr catheter was advanced over the wire and used for Right Coronary Angiography. 11:34:24 SHEATH 6Fr Prelude ([id number]) opened to sterile field. 11:34:25 CHOICE PT Extra Support 182cm wire ([id number]) opened to sterile field. 11:34:27 INFLATOR Merit BasixCompak (TC9394) opened to sterile field. 11:34:50 GUIDE 6FR XBLAD 3.5 catheter ([id number]) opened to sterile field. 11:35:25 RCA angiography performed. 11:35:28 Injector settings: Ml/sec: 3, Volume: 6, 11:35:29 Catheter removed. 11:35:30 Proceeding to intervention. 11:35:37 Heparin Bolus 4000 units I.V. was administered by Aaron Gaspar RN; for anticoagulation; verified with dr rubi 11:35:38 Sheath upsized to a 6 Fr Short. 11:35:49 6 Fr xblad 3.5 guide catheter was inserted over the wire 11:35:54 choice pt wire advanced. 11:35:57 Wire advanced across lesion. 11:38:33 Integrilin (Bolus 2mg/ml) 6.8 ml I.V. was administered by Aaron Gaspar RN; for antiplatelet therapy; Wasted 3.2 ml of vial 11:38:48 Place stent Inflation Number: 1 A INTEGRITY RX 2.75 x 12 stent ([id number]) was prepped and advanced across the Prox LAD. The stent was deployed at 19 ELE for 0:10 (min:sec). 11:39:04 Inflation number: 2 The stent balloon was then re-inflated across the Prox LAD to 21 ELE for 0:10 (min:sec). 11:39:59 Stent catheter was removed intact over wire. 11:40:00 Wire removed. 11:40:01 Guide catheter removed. 11:40:09 EXOSEAL 6Fr (EX600) opened to sterile field. 11:40:18 Sheath removed intact; hemostasis achieved with Exoseal to the Right Femoral artery. 11:41:09 Procedure ended.(Physican Out) 11:41:35 Fluoroscopy time 02.50 minutes. 11:41:43 Fluoroscopy dose: 95.12 mGy 11:41:43 Flurop Dose total: 95.12 11:41:48 Contrast amount:Isovue 300 53ml. 11:41:49 Sharps counted by scrub and verified by R.N. 11:41:50 Insertion/operative site no bleeding no hematoma. 11:41:54 Post-op/insertion site Right Femoral artery dressed using a 4 x 4 and Tegaderm. 11:41:57 Post right femoral artery:stable 11:41:58 Post Procedure Pulses reassessed and unchanged 11:42:01 Post procedure rhythm: unchanged. 11:42:04 Estimated blood loss: 5 ml 11:42:05 Post procedure instruction explained to patient.Patient verbalizes understanding. 11:42:06 Patient needs reinforcement of post procedure teaching. 11:42:15 Procedure type changed to Cath procedure, Diagnostic procedure, LHC, LHC w/Coronaries, PCI procedure, Coronary Stent, Coronary Stent Initial 11:42:16 Procedure and supply charges have been captured, reviewed, submitted and are correct. 11:42:20 Procedure Complication : No complications 11:42:22 Vital chart was stopped 11:42:23 See physician's report for complete and final results. 11:42:31 Report given to Med II. 11:42:34 Patient transfered to Med II with Stretcher. 11:42:36 Procedure ended. 11:42:36 Full Disclosure recording stopped 11:42:45 ACC-PCI Only Patient was given prescriptions, or instructed by Juan Diego Rubi MD to start/continue the following medications upon discharge: Plavix 11:42:46 End room use (Document Last) 11:45:01 Plavix 600 mg P.O. was administered by Aaron Gaspar RN; for antiplatelet therapy; Intervention Summary Intervention Notes Time ActionType Lesion and Equipment Action# Pressure Duration Attributes Used 11:38:48 Place stent Prox LAD INTEGRITY RX 1 19 00:10 2.75 x 12 stent ([id number]) 11:39:04 Reinflate Prox LAD INTEGRITY RX 2 21 00:10 stent 2.75 x 12 balloon stent ([id number]) Device Usage Item Name Manufacture Quantity Catalog Number Hospital Part Current M inimal Lot# / Charge Number Stock Stock Serial# Code ACIST Syringe Acist 1 75990 058351 644988 [id number] 2 0 (06977) Medical Systems Inc Bag Decanter Microtek 1 2001S 864324 03841 437052 5 (2001S) Medical Inc. Medline Cath Cardinal 1 [id number] 438605 71241 159209 5 Pack Health ([id number]) DIAGNOSTIC WIRE St Minh 1 611562 950853 917016 862698 3 0 .035 260cm J wire (386524) ACIST Hand Acist 1 47069 655297 075896 177945 5 Control (76347) Medical Systems Inc ACIST Manifold Acist 1 25837 648656 184114 962297 5 (87365) Medical Systems Inc DIAGNOSTIC Cardinal 1 VK3883 978356 05696 583512 3 0 Multipack 5Fr Health catheter set (CZ8147) Tegaderm 4 x 4 3M 1 1626W 538263 915273 687906 5 (1626W) SHEATH Prelude Merit 1 [id number]-[id number] 782476 875222 393021 5 5Fr 0.035 Medical ([id number]-9O-85-035) MULTIPACK Cardinal 1 563251 5 Pigtail 5 Fr Health catheter MULTIPACK JL Cardinal 1 372848 5 4.0 5Fr Health catheter MULTIPACK 3DRC Cardinal 1 713906 5 5Fr catheter Health SHEATH 6Fr Merit 1 [id number] 084392 170033 936344 5 Prelude Medical ([id number]) CHOICE PT Extra Branford 1 [id number] 505199 596761 091133 5 Support 182cm Scientific wire ([id number]) INFLATOR Merit Merit 1 CY9119 954847 873015 456398 1 5 [facility] (KR1435) GUIDE 6FR XBLAD Cardinal 1 [id number] 180726 811758 842742 1 0 3.5 catheter Movidius ([id number]) INTEGRITY RX Medtronic 1 [id number] 198290 849738 022492 5 [id number] 2.75 x 12 stent ([id number]) EXOSEAL 6Fr Cardinal 1 EX600 906355 368401 743224 1 0 (EX600) Health Signature Audit [place] Stage Time Signature Unsigned Intra-Procedure 08/31/2017 Yue Mchugh 11:45:59 AM RT(R) Signatures Monitor : Yue Mchugh RT Signature : Date : Time : [address] [place] [address]
--- NOTE | ~2017-08-30 | OP ---
PATIENT NAME: RUTHIE PAUL MEDICAL RECORD: [id number] :64 LOCATION:D.M2 D.2125 ADMISSION DATE:08/30/17 SURGEON: AKSHAT CRUM MD DATE OF OPERATION: 08/31/2017 PROCEDURES: 1. PTCA stent LAD. 2. Left heart catheterization. 3. Selective coronary angiography. 4. Left ventriculogram. INDICATION: Chest pain compatible with angina and coronary artery disease. PROCEDURE IN DETAIL: After informed consent was obtained and after a detailed description of risks, benefits as well as alternative therapies, the patient elected to proceed with angiogram and angioplasty. The right femoral area was prepped and draped in normal sterile fashion. Right femoral artery was cannulated via modified Seldinger technique with placement of 6-Senegalese sheath. All catheters exchanged through this sheath. FINDINGS: Left ventriculogram was performed in standard 30-degree GARCIA view, reveals good cardiac wall motion throughout all segments. Overall ejection fraction estimated 60%. SELECTIVE CORONARY ANGIOGRAPHY: 1. Left main is with no significant angiographic disease. 2. Left anterior descending has previously placed stents. There is up to 80% in-stent restenosis. 3. Left circumflex has moderate irregularities, but no flow-limiting stenosis. 4. Right coronary artery has moderate irregularities, but no flow-limiting stenosis. PTCA STENT OF THE LAD: The stent used was a 2.5 x 12 mm Integrity. Result was 0% residual stenosis. OVERALL IMPRESSION: Successful PTCA stent of the LAD going from 80% initial stenosis to 0% residual stenosis. TRANSINT:[id number] Voice Confirmation ID: [id number] DOCUMENT ID: [id number] AKSHAT CRUM MD at 1630 CC: [id number] DICTATION DATE: 08/31/17 1145 WET FINISHER WOOL: 08/31/17 1213 DIS IN 08/31/17 [facility] [address] [place] [address]
--- NOTE | ~2017-08-30 | HP ---
PATIENT: RUTHIE CÁRDENAS MEDICAL RECORD: [id number] ACCOUNT: [id number] LOCATION:D. D.2125 : 64 ADMISSION DATE: 08/30/17 HISTORY AND PHYSICAL EXAMINATION DIAGNOSES: 1. Unstable angina. 2. Coronary artery disease. 3. Previous PTCA stent. 4. Esophageal varices. 5. Smoking history. 6. COPD. HISTORY OF PRESENT ILLNESS: Mrs. Cárdenas has a history of coronary artery disease. Last cardiac intervention for in-stent restenosis of the LAD approximately 1 month ago. She did well. Initially, she began having multiple episodes of chest pain just like that of her previous angina yesterday. She has continued to have multiple episodes of pain today. Her EKG is with no acute ST-T abnormalities. Troponin is normal. She continues to have the pain. She does have a history of esophageal varices as she is committed to bare metal stents due to Plavix being a short-term course. PHYSICAL EXAMINATION: GENERAL APPEARANCE: Well-nourished, well-developed, appears stated age. Level of distress, comfortable. PSYCHIATRIC: Mental status, alert, normal affect. Orientation, oriented to time, place and person. EYES: Lids and conjunctiva, noninjected. No discharge, no pallor. ENT: Lips, teeth, gums, normal dentition. Oropharynx, no cyanosis, no pallor. NECK: Carotid arteries, bilateral normal upstroke, no bruits, no thrills. JUGULAR VEINS: No jugular venous pressure or distention. CERVICAL LYMPH NODES: Nontender, nonenlarged. THYROID: Not enlarged. Nontender. No nodules. LUNGS: Respiratory effort, unlabored. CHEST: Normal curvature. No thoracic deformity. No chest wall tenderness. Percussion, resonant. Auscultation, clear. No wheezes, no rales, no rhonchi. CARDIOVASCULAR: Precordial exam, nondisplaced. No heaves or pericardial thrills. Rate and rhythm, regular. Heart sounds, normal S1, normal S2. No S3, no gallop, no rub. Systolic murmur, not heard. Diastolic murmur, not heard. EXTREMITIES: No cyanosis, no edema. Peripheral pulses, full and equal in all extremities, except as noted. No bruits appreciated. ABDOMEN: Soft, nondistended. Normal aorta. No bruit. Nontender. No masses. Liver, nontender, no hepatomegaly. Spleen, nontender, no splenomegaly. MUSCULOSKELETAL: No joint tenderness. No joint swelling. No erythema. NEUROLOGICAL: Normal gait, normal strength, normal tone. SKIN: Warm and dry. REVIEW OF SYSTEMS: The patient reports easy bruising but reports no swollen glands. The patient reports no fever, no night sweats, no significant weight gain, no significant weight loss. No significant exercise tolerance. The patient reports no dry eyes, no irritation, no vision change. Patient reports no difficulty hearing and no ear pain. Patient reports no frequent nose bleeds or nose and sinus problems. Patient reports on arm pain on exertion. No shortness of breath while lying down. No history of heart murmur. Patient reports no cough, no wheezing or coughing up blood. Patient reports no HISTORY AND PHYSICAL [id number] RUTHIE CÁRDENAS LEVI abdominal pain, no vomiting. Normal appetite. No diarrhea and not vomiting blood. No nausea and no constipation. Patient reports no incontinence. No difficulty urinating. No hematuria. No increased frequency. Patient reports no muscle aches. No weakness, no arthralgias, no back pain. No swelling of the extremities. Patient reports no abnormal mole, no jaundice, no rashes. Reports no loss of consciousness. No weakness and no numbness. No seizures, dizziness, or headaches. The patient reports no depression, no sleep disturbance, feeling safe in a relationship and no alcohol abuse. Patient reports on fatigue. Reports no runny nose or sinus pressure. No itching, no hives, and no frequent sneezing. OVERALL IMPRESSION: Recurrent angina in an unstable fashion. We will proceed with repeat coronary angiography. Further care depends upon the findings of the angiography. TRANSINT:[id number] Voice Confirmation ID: [id number] DOCUMENT ID: [id number] AKSHAT CRUM MD at 1630 CC: [id number] DICTATION DATE: 08/31/17743 AIRCRAFT NAVIGATOR: 08/31/17 08 DIS IN 08/31/17 [facility] [address] [place] [id number]
[2017-08-30 17:50] LABS: BASOPHILS 0.4 % (0-2); EOSINOPHILS 4.7 % (0-7); HEMOGLOBIN 14.2 g/dL (12-16); IMMATURE GRANULOCYTES 0.2 % (0-5); LYMPHOCYTES 30.2 % (15-50); MCH 28.9 pg (26.0-34.0); MCHC 32.3 g/dL (31.0-37.0); MCV 89.6 fL (80.0-100.0); MEAN PLATELET VOLUME 10.7 fL (7.4-10.4); NEUTROPHILS 57.5 % (40-80); PLATELET COUNT 139 10x3/uL (130-400); RBC 4.91 10x6/uL (4.00-5.40); RDW 13.1 % (11.5-14.5); WBC 4.9 10x3/uL (4.8-10.8)
[2017-08-30 18:11] LABS: ALBUMIN 3.6 g/dL (3.4-5.0); ALKALINE PHOSPHATASE 178 U/L (46-116); ALT (SGPT) 55 U/L (10-68); CALC OSMOLALITY 283 mosm/kg (275-300); CALCIUM 9.5 mg/dL (8.5-10.1); CARBON DIOXIDE 28.2 mmol/L (21.0-32.0); CHLORIDE - SERUM 105 mmol/L (98-107); CREATININE - SERUM 0.9 mg/dL (0.6-1.3); GLUCOSE 122 mg/dL (74-106); POTASSIUM - SERUM 3.9 mmol/L (3.5-5.1); PROTEIN - SERUM 7.5 g/dL (6.4-8.2); SODIUM 142 mmol/L (136-145); UREA NITROGEN 13 mg/dL (7-18); eGFR NON AFRICAN AMERICAN 69 mL/min (90-120)
[2017-08-30 18:16] LABS: CHOL - HDL RATIO 3.4 ratio (2.3-4.1); CHOLESTEROL, TOTAL 175 mg/dL (0-200); CKMB 0.4 U/L (0.0-3.6); CREATINE KINASE 28 UL (21-215); HDL CHOLESTEROL 51 mg/dL (32-96); LDL CHOLESTEROL 97 mg/dL (0-100); LDL-HDL RATIO 1.9 ratio (1.5-3.5); TRIGLYCERIDE 139 mg/dL (30-200); TROPONIN-I < 0.017 ng/mL (0.000-0.060)
[2017-08-30 21:33] VITALS: BP 148/83
[2017-08-30] MEDS ORDERED: BUSPAR5 MG PO (21:38)
[2017-08-30 22:13] VITALS: BP 114/74; Ht 180.3 cm; Wt 74.5 kg
[2017-08-31 06:12] VITALS: BP 142/81
[2017-08-31 09:14] VITALS: BP 95/53
[2017-08-31 11:40] VITALS: BP 95/59
[2017-08-31] MEDS ORDERED: PLAVIX75 MG PO (14:45)
[2017-08-31] MEDS ORDERED: ASPIRIN81 MG PO (14:46)
== END 2017-08-31 19:57 | disposition home or self-care (01) ==
LOC: D.ER 17:30 → D.M2 20:17 → OBSVTIME 20:18 → D.M2 08-31 19:57
PROVIDERS: Family Medicine
DX: I25.110 Atherosclerotic heart disease of native coronary artery with unstable angina pectoris (principal); Z95.5 Presence of coronary angioplasty implant and graft; T82.855A Stenosis of coronary artery stent, initial encounter; Y83.8 Other surgical procedures as the cause of abnormal reaction of the patient, or of later complication, without mention of misadventure at the time of the procedure; J44.9 Chronic obstructive pulmonary disease, unspecified; I85.00 Esophageal varices without bleeding

== ENCOUNTER → 2017-09-08 09:10 | Outpatient (CLI) | payer MEDICARE, OTHER ==
[2017-08-30 22:13] VITALS: BMI 22.9
[~2017-09-08 09:10] MED LIST changes: +ASPIRIN81 MG PO; +BUSPAR5 MG PO; +PHENAZOPYRIDIN200 MG PO
== END | disposition home or self-care (01) ==
LOC: D.RAD 09:10
DX: N20.0 Calculus of kidney (principal); N39.0 Urinary tract infection, site not specified

== ENCOUNTER 2017-09-08 21:11 | Observation (INO) | payer MEDICARE, OTHER ==
[~2017-09-08] VITALS: Ht 180.3 cm; Wt 72.9 kg
--- NOTE | ~2017-09-08 | CN ---
PATIENT NAME:RUTHIE CÁRDENAS MEDICAL RECORD: [id number] : 64 LOCATION:D. D.2121 ADMIT DATE: 09/08/17 ACCOUNT: [id number] CONSULTING PHYSICIAN: AKSHAT CRUM MD REFERRING PHYSICIAN: CARLITOS ZAYAS MD DATE OF CONSULTATION: 09/09/2017 Cardiology Consult ADMITTING DIAGNOSES: 1. Chest pain. 2. Coronary artery disease. 3. Recent percutaneous transluminal coronary angioplasty stent, LAD. 4. Chronic obstructive pulmonary disease. 5. Smoking history. HISTORY OF PRESENT ILLNESS: Mrs. Cárdenas presents with recurrent chest pain. She presented last week with chest pain, found to have significant disease of the LAD, underwent successful PTCA stent of the LAD. She presents with the same chest pain. She continues to have the chest pain even this morning while being interviewed, is just like that of her previous angina. REVIEW OF SYSTEMS: The patient reports easy bruising but reports no swollen glands. The patient reports no fever, no night sweats, no significant weight gain, no significant weight loss. No significant exercise tolerance. The patient reports no dry eyes, no irritation, no vision change. Patient reports no difficulty hearing and no ear pain. Patient reports no frequent nose bleeds or nose and sinus problems. Patient reports on arm pain on exertion. No shortness of breath while lying down. No history of heart murmur. Patient reports no cough, no wheezing or coughing up blood. Patient reports no abdominal pain, no vomiting. Normal appetite. No diarrhea and not vomiting blood. No nausea and no constipation. Patient reports no incontinence. No difficulty urinating. No hematuria. No increased frequency. Patient reports no muscle aches. No weakness, no arthralgias, no back pain. No swelling of the extremities. Patient reports no abnormal mole, no jaundice, no rashes. Reports no loss of consciousness. No weakness and no numbness. No seizures, dizziness, or headaches. The patient reports no depression, no sleep disturbance, feeling safe in a relationship and no alcohol abuse. Patient reports on fatigue. Reports no runny nose or sinus pressure. No itching, no hives, and no frequent sneezing. PHYSICAL EXAMINATION: GENERAL APPEARANCE: Well-nourished, well-developed, appears stated age. Level of distress, comfortable. PSYCHIATRIC: Mental status, alert, normal affect. Orientation, oriented to time, place and person. EYES: Lids and conjunctiva, noninjected. No discharge, no pallor. ENT: Lips, teeth, gums, normal dentition. Oropharynx, no cyanosis, no pallor. NECK: Carotid arteries, bilateral normal upstroke, no bruits, no thrills. JUGULAR VEINS: No jugular venous pressure or distention. CERVICAL LYMPH NODES: Nontender, nonenlarged. THYROID: Not enlarged. Nontender. No nodules. LUNGS: Respiratory effort, unlabored. CHEST: Normal curvature. No thoracic deformity. No chest wall tenderness. Percussion, resonant. Auscultation, clear. No wheezes, no rales, no rhonchi. CONSULT REPORT [id number] RUTHIE CÁRDENAS CARDIOVASCULAR: Precordial exam, nondisplaced. No heaves or pericardial thrills. Rate and rhythm, regular. Heart sounds, normal S1, normal S2. No S3, no gallop, no rub. Systolic murmur, not heard. Diastolic murmur, not heard. EXTREMITIES: No cyanosis, no edema. Peripheral pulses, full and equal in all extremities, except as noted. No bruits appreciated. ABDOMEN: Soft, nondistended. Normal aorta. No bruit. Nontender. No masses. Liver, nontender, no hepatomegaly. Spleen, nontender, no splenomegaly. MUSCULOSKELETAL: No joint tenderness. No joint swelling. No erythema. NEUROLOGICAL: Normal gait, normal strength, normal tone. SKIN: Warm and dry. OVERALL IMPRESSION: Chest pain. We will proceed with coronary angiography to ensure patency of the previously placed stent. If this is widely patent, her chest pain is noncardiac in etiology. TRANSINT:[id number] Voice Confirmation ID: [id number] DOCUMENT ID: [id number] AKSHAT CRUM MD at 1444 CC: [id number] DICTATION DATE: 09/09/17918 SPORTS RECRUITER: 09/09/17 1239 DIS IN 09/09/17 [place] [place] [address]
--- NOTE | ~2017-09-08 | OP ---
PATIENT NAME: RUTHIE PAUL MEDICAL RECORD: [id number] :64 LOCATION:D.M2 D.2121 ADMISSION DATE:09/08/17 SURGEON: AKSHAT CRUM MD DATE OF OPERATION: 09/09/2017 PROCEDURES: 1. PTCA of left circumflex. 2. Intravascular ultrasound of left circumflex. 3. Left heart catheterization. INDICATION: Unstable angina and coronary artery disease. PROCEDURE IN DETAIL: After informed consent was obtained and after detailed explanation of the risks, benefits as well as alternative therapies, the patient elected to proceed with angiogram and angioplasty. The left femoral area was prepped and draped in normal sterile fashion. Left femoral artery was cannulated via modified Seldinger technique with placement of 6-Nigerien sheath. All catheters exchanged through this sheath. FINDINGS: 1. The left anterior descending has previously placed stents. These are widely patent with no significant restenosis. No disease elsewise throughout the left anterior descending. 2. The left main has no significant stenosis. 3. The left circumflex has a previously placed stent with 70% in-stent restenosis confirmed by intravascular ultrasound at the ostium. 4. Right coronary has mild irregularities, but no flow-limiting stenosis. PTCA OF THE LEFT CIRCUMFLEX: The balloon used was a 3.0 balloon to 17 atmospheres. Result was 0% residual stenosis. OVERALL IMPRESSION: Successful high-pressure PTCA of in-stent restenosis of the left circumflex going from 70% initial stenosis to 0% residual. TRANSINT:[id number] Voice Confirmation ID: [id number] DOCUMENT ID: [id number] AKSHAT CRUM MD at 1444 CC: [id number] DICTATION DATE: 09/09/17 1311 CORRESPONDENT: 09/09/17 1516 DIS IN 09/09/17 [place] [id number] [place] [id number]
--- NOTE | ~2017-09-08 | HEMODYNAMI ---
PATIENT:RUTHIE PAUL MEDICAL RECORD: [id number] : 64 LOCATION:[facility].2121 ADMISSION DATE: 09/08/17 Generatedon:09/09/201713:13 Patient name: RUTHIE PAUL Patient #: [id number] : 1960 Date of study: 09/09/2017 Page: Of Hemodynamic Procedure Report Patient Data Patient Demographics Procedure consent was obtained First Name: RUTHIE Gender: Female Last Name: HUMBERTO : 1960 [facility] Initial: LEVI Age: 56 year(s) Patient #: [id number] Race: SSN: [id number] Additional ID: [id number] Contact details [address]: [address] [place] [address] State: [place] City: [place] Zip code: [address] Past Medical History Allergies Allergen Reaction Date Comments Reported Other 01/02/2016 metoclopramide hcl, zolpidem allergy tartrate,pcn,ambien,doxycyclin,vancomycin,macrobid . Other 06/01/2017 See chart allergy Admission Admission Data Admission Date: 09/08/2017 Admission Time: 23:09 Room #: D.2121 Lab Results Lab Result Date: 09/09/2017 Lab Result Time: 0:00 Biochemistry Name Units Result Min Max BUN mg/dl 12 --(-*--)-- 7 18 Creatinine mg/dl 0.8 --(-*--)-- 0.6 1.3 Procedure Procedure Types Cath Procedure Diagnostic Procedure LHC Coronaries only FFR/IVUS Intra-Coronary IVUS Initial PCI Procedure PTCA PTCA Initial Procedure Description Procedure Date Procedure Date: 09/09/2017 Procedure Start Time: 12:58 Procedure End Time: 13:10 Procedure Staff Name Function Win Whaley RT Monitor Gerardo Worrell RT Scrub Aaron Gaspar RN Nurse Juan Diego Rubi MD Performing Physician Yue Mchugh RT Monitor Procedure Data Cath Procedure Fluoroscopy Diagnostic fluoroscopy Total fluoroscopy Time: 3 time: 3 min min Diagnostic fluoroscopy Total fluoroscopy dose: 413 dose: 413 mGy mGy Contrast Material Contrast Material Type Amount (ml) Isovue 300 48 Entry Location Entry Primary Successful Side Size Upsize Upsize Entry Closure Succes sful Closure Location (Fr) 1 (Fr) 2 (Fr) Remarks Device Remarks Femoral Left 5 Fr 6 Fr Exoseal artery Short Estimated blood loss: 5 ml Diagnostic catheters Device Type Used For End Catheter Placement MULTIPACK JL 4.0 5Fr Left Coronary catheter Angiography MULTIPACK 3DRC 5Fr Right Coronary catheter Angiography Procedure Complications No complications Procedure Medications Medication Administration Route Dosage Oxygen etCO2 Nasal cannula 2 l/min Heparin Flush Bag added to field 2 bags (1000units/500ml NS) 0.9% NaCl I.V. 100 ml/hr Fentanyl I.V. 50 mcg Versed I.V. 1 mg Fentanyl I.V. 50 mcg Versed I.V. 1 mg Fentanyl I.V. 50 mcg Heparin Bolus I.V. 4000 units Hemodynamics Rest Heart Rate: 62 (bpm) Snapshots Pre Cath Intra NCS Post Cath Vital Signs Time Heart Resp SPO2 etCO2 NIBP (mmHg) Rhythm Pain Sedation Rate (ipm) (%) (mmHg) Status Level (bpm) 12:33:25 55 16 97 0 134/71(101) NSR 0 (11) 10(A) , No pain 12:37:39 58 16 87 0 115/64(82) NSR 0 (11) 10(A) , No pain 12:41:45 53 17 97 33.6 121/70(100) NSR 0 (11) 10(A) , No pain 12:45:55 52 16 99 32.8 121/63(87) NSR 0 (11) 10(A) , No pain 12:50:05 53 17 99 32.8 111/63(86) NSR 0 (11) 10(A) , No pain 12:54:15 55 16 98 21.6 112/52(79) NSR 0 (11) 10(A) , No pain 12:58:20 55 16 99 32.8 121/65(87) NSR 0 (11) 10(A) , No pain 13:02:28 60 16 99 38 124/66(85) NSR 0 (11) 9(A) , No pain 13:06:42 59 16 98 37.3 97/54(68) NSR 0 (11) 9(A) , No pain 13:10:22 66 20 98 31.3 95/53(74) NSR 0 (11) 9(A) , No pain Medications Time Medication Route Dose Verified Delivered Reason Notes Effectiveness by by 12:32:38 Oxygen etCO2 2 Juan Diego Aaron Per physician Nasal l/min Greyson Gaspar RN cannula 12:32:52 Heparin Flush added 2 Juan Diego Barriosy used for Bag to bags Greyson Gaspar RN procedure (1000units/500ml field NS) 12:33:03 0.9% NaCl I.V. 100 Juan Diego Aaron Per physician ml/hr Greyson Gaspar RN 12:57:04 Fentanyl I.V. 50 Juan Diego Aaron for sedation mcg Greyson Gaspar RN 12:57:10 Versed I.V. 1 mg Juan Diego Aaron for sedation Greyson Gaspar RN 12:58:52 Fentanyl I.V. 50 Juan Diego Aaron for sedation mcg Greyson Gaspar RN 12:59:07 Versed I.V. 1 mg Juan Diego Barriosy for sedation Greyson Gaspar RN 13:00:08 Fentanyl I.V. 50 Juan Diego Barriosy for sedation mcg Greyson Gaspar RN 13:05:39 Heparin Bolus I.V. 4000 Juan Diego Aaron for units Greyson Gaspar RN anticoagulation Procedure Log Time Note 12:10:36 Gerardo Worrell RT(R) sent for patient. Start room use. 12:22:36 Time tracking: Regular hours (M-F 7:00 - 5:00) 12:22:40 Plan of Care:Hemodynamics will remain stable., Cardiac rhythm will remain stable., Comfort level will be maintained., Respiratory function will remain adequate., Patient/ family verbilizes understanding of procedure., Procedure tolerated without complication., Recovers from procedure without complications.. 12:27:30 Patient received from PCU to CCL 2 Alert and oriented. Tansferred to table in Supine position. 12:27:31 Warm blankets applied, and yeni hugger turned on for patient comfort. 12:27:32 Correct patient and procedure confirmed by team. 12:27:33 Signed procedure consent form obtained from patient. 12:27:34 ECG and BP/O2 sat monitors applied to patient. 12:32:15 Vital chart was started 12:32:38 Oxygen 2 l/min etCO2 Nasal cannula was administered by Aaron Gaspar RN; Per physician; 12:32:52 Heparin Flush Bag (1000units/500ml NS) 2 bags added to field was administered by Aaron Gaspar RN; used for procedure; 12:33:03 0.9% NaCl 100 ml/hr I.V. was administered by Aaron Gaspar RN; Per physician; 12:36:01 Baseline sample Acquired. 12:36:04 Rhythm: sinus rhythm 12:36:07 Full Disclosure recording started 12:39:23 H&P Date Dictated: 09/09/2017 Within 30 days and on chart.. 12:39:26 Pre-procedure instructions explained to patient. 12:39:27 Pre-op teaching completed and patient verbalized understanding. 12:39:30 Family in patients room. 12:39:35 Patient NPO since Midnight. 12:39:45 Is the patient allergic to Iodine/contrast media? No. 12:40:05 Is patient on blood thinner?Yes 12:40:15 ACC The patient was administered the following blood thiners within the last 24 hours: ACCPlavix 12:40:18 Patient diabetic? No. 12:40:20 ----Pre-sedation anethsthesia assessment.---- 12:40:23 Previous problem with sedation/anesthesia? No ? 12:40:26 Snore? Yes 12:40:30 Sleep apnea? No 12:40:32 Deviated septum? No 12:40:33 Opens mouth fully? Yes 12:40:34 Sticks out tongue? Yes 12:40:41 Airway obstruction? Yes COPD 12:40:47 Dentures? No ? 12:41:29 Pre procedure: left posterior tibial pulse 2+ Normal; easily identifiable; not easily obliterated 12:41:37 Patient pain scale 0/10 ?. 12:41:58 IV patent on arrival in right hand with 0.9% NaCl at [facility]. 12:42:04 Left groin area was prepped with chlora-prep and draped in sterile fashion 12:42:07 Sharps counted by scrub and verified by R.N. 12:42:07 Alarms reviewed by R. N. 12:44:37 Lab Result : Creatinine 0.8 mg/dl 12:44:37 Lab Result : BUN 12 mg/dl 12:45:43 Use device set Femoral Dx 12:45:44 ACIST Syringe (76857) opened to sterile field. 12:45:45 Bag Decanter (2002S) opened to sterile field. 12:45:46 Medline Cath Pack ([id number]) opened to sterile field. 12:45:47 DIAGNOSTIC WIRE .035 260cm J wire (483071) opened to sterile field. 12:45:49 ACIST Hand Control (75892) opened to sterile field. 12:45:50 DIAGNOSTIC Multipack 5Fr catheter set (AB1741) opened to sterile field. 12:45:50 ACIST Manifold (05564) opened to sterile field. 12:45:51 Tegaderm 4 x 4 (1626W) opened to sterile field. 12:46:06 SHEATH Prelude 5Fr 0.035 (THM-6X-28-035) opened to sterile field. 12:49:39 Physician paged 12:50:48 Zero performed for pressure channel P1 12:51:20 Zero performed for pressure channel P1 12:55:58 --------ALL STOP TIME OUT------ 12:55:58 Physician arrived 12:55:59 Final Timeout: patient, procedure, and site verified with staff and physician. All members of the team are in agreement. 12:56:09 Left groin site verified by team. 12:56:16 Physical assessment completed. ASA score P 2 - A patient with mild systemic disease as per Juan Diego Rubi MD. 12:56:20 Sedation plan: IV Moderate Sedation Medication:Versed, Fentanyl 12:57:04 Fentanyl 50 mcg I.V. was administered by Aaron Gaspar RN; for sedation; 12:57:06 Procedure started. 12:57:10 Versed 1 mg I.V. was administered by Aaron Gaspar RN; for sedation; 12:58:36 Local anesthetic to left femerol artery with Lidocaine 2% by Juan Diego Rubi MD.INITIAL ACCESS ONLY 12:58:50 A 5 Fr sheath was inserted into the Left Femoral artery 12:58:52 Fentanyl 50 mcg I.V. was administered by Aaron Gaspar RN; for sedation; 12:59:07 A MULTIPACK JL 4.0 5Fr catheter was advanced over the wire and used for Left Coronary Angiography. 12:59:07 Versed 1 mg I.V. was administered by Aaron Gaspar RN; for sedation; 12:59:20 LCA angiography performed. 12:59:23 Injector settings: Ml/sec: 3, Volume: 6, 13:00:08 Fentanyl 50 mcg I.V. was administered by Aaron Gaspar RN; for sedation; 13:00:48 Catheter removed. 13:00:54 A MULTIPACK 3DRC 5Fr catheter was advanced over the wire and used for Right Coronary Angiography. 13:01:00 RCA angiography performed. 13:01:02 Injector settings: Ml/sec: 3, Volume: 6, 13:01:10 Catheter removed. 13:01:11 Proceeding to intervention. 13:01:56 CHOICE PT Extra Support 182cm wire ([id number]) opened to sterile field. 13:01:56 [place] IVUS Catheter (91779Q) opened to sterile field. 13:01:57 INFLATOR Merit BasixCompak (IJ9023) opened to sterile field. 13:01:58 SHEATH 6Fr Prelude ([id number]) opened to sterile field. 13:02:07 Sheath upsized to a 6 Fr Short. 13:02:24 GUIDE 6FR XBLAD 3.5 catheter ([id number]) opened to sterile field. 13:02:32 6 Fr XBLAD 3.5 guide catheter was inserted over the wire 13:02:37 CHOICE PT wire advanced. 13:02:40 Wire advanced across lesion. 13:02:50 IVUS catheter advanced over wire. 13:05:39 IVUS pass to Circ lesion performed. 13:05:39 Heparin Bolus 4000 units I.V. was administered by Aaron Gaspar RN; for anticoagulation; 13:05:42 IVUS catheter removed over wire. 13:06:38 Inflate balloon Inflation number: 1 A EUPHORA 3.0 x 10 balloon ([id number]) was prepped and advanced across the Mid CX, then inflated to 17 ELE for 0:10 (min:sec). 13:06:43 Inflation number: 2 The EUPHORA 3.0 x 10 balloon ([id number]) was reinflated across the Mid CX, to 17 ELE for 0:10 (min:sec). 13:06:57 Inflation number: 3 The EUPHORA 3.0 x 10 balloon ([id number]) was reinflated across the Mid CX, to 17 ELE for 0:10 (min:sec). 13:07:11 Balloon removed over the wire. 13:07:12 Guide catheter removed. 13:07:12 Wire removed. 13:07:52 EXOSEAL 6Fr (EX600) opened to sterile field. 13:08:02 Sheath removed intact; hemostasis achieved with Exoseal to the Left Femoral artery. 13:08:03 Procedure ended.(Physican Out) 13:08:31 Fluoroscopy time 03.00 minutes. 13:08:35 Fluoroscopy dose: 413 mGy 13:08:35 Flurop Dose total: 413 13:08:42 Contrast amount:Isovue 300 48ml. 13:08:44 Sharps counted by scrub and verified by R.N. 13:08:45 Insertion/operative site no bleeding no hematoma. 13:08:55 Post-op/insertion site Left Femoral artery dressed using a 4 x 4 and Tegaderm. 13:09:01 Post left femerol artery:stable 13:09:02 Post Procedure Pulses reassessed and unchanged 13:09:05 Post procedure rhythm: unchanged. 13:09:08 Estimated blood loss: 5 ml 13:09:10 Patient needs reinforcement of post procedure teaching. 13:09:10 Post procedure instruction explained to patient.Patient verbalizes understanding. 13:09:45 Procedure type changed to Cath procedure, Diagnostic procedure, LHC, Coronaries only, FFR/IVUS, Intra-Coronary IVUS Initial, PCI procedure, PTCA, PTCA Initial 13:09:47 Procedure and supply charges have been captured, reviewed, submitted and are correct. 13:09:52 Procedure Complication : No complications 13:09:54 See physician's report for complete and final results. 13:09:54 Vital chart was stopped 13:10:03 Report given to [facility]. 13:10:17 Patient transfered to [facility] with Stretcher. 13:10:20 Full Disclosure recording stopped 13:10:20 Procedure ended. 13:10:27 ACC-PCI Only Patient was given prescriptions, or instructed by Juan Diego Rubi MD to start/continue the following medications upon discharge: Plavix 13:10:28 End room use (Document Last) Intervention Summary Intervention Notes Time ActionType Lesion and Equipment Action# Pressure Duration Attributes Used 13:06:38 Inflate Mid CX EUPHORA 1 17 00:10 balloon 3.0 x 10 balloon ([id number]) 13:06:43 Reinflate Mid CX EUPHORA 2 17 00:10 balloon 3.0 x 10 balloon ([id number]) 13:06:57 Reinflate Mid CX EUPHORA 3 17 00:10 balloon 3.0 x 10 balloon ([id number]) Device Usage Item Name Manufacture Quantity Catalog Number Hospital Part Current M inimal Lot# / Charge Number Stock Stock Serial# Code ACIST Syringe Acist 1 04309 098019 776837 153110 2 0 (62253) Medical Systems Inc Bag Decanter Microtek 1 [id number] 00881 018767 5 () Medical Inc. Medline Cath Cardinal 1 [id number] 756261 81290 875981 5 hyaqu ([id number]) DIAGNOSTIC WIRE St Minh 1 757959 285397 344975 754643 3 0 .035 260cm J wire (244152) ACIST Hand Acist 1 65615 132153 571673 873078 5 Control (24302) Medical Systems Inc ACIST Manifold Acist 1 10895 055203 362817 011883 5 (67421) Medical Systems Inc DIAGNOSTIC Cardinal 1 QJ7053 852005 58330 390820 3 0 Multipack 5Fr Health catheter set (MM2546) Tegaderm 4 x 4 3M 1 1626W 533635 499974 505736 5 (1626W) SHEATH Prelude Merit 1 YCF-4Z-09-035 667347 254351 295125 5 5Fr 0.035 Medical (GJC-9C-37-035) MULTIPACK JL Cardinal 1 208991 5 4.0 5Fr Health catheter MULTIPACK 3DRC Cardinal 1 382944 5 5Fr catheter Health Tok[place] Tok[place] 1 30869T 213245 180002 014356 8 [place] IVUS Catheter (58576X) CHOICE PT Extra T[place]oli 1 [id number] 233999 911837 137971 5 Support 182cm Scientific wire (8404474W5) INFLATOR Merit Merit 1 ES3583 922592 716798 271179 1 5 Threadbox (EF6463) SHEATH 6Fr Merit 1 [id number] 865282 413536 630902 5 Prelude Medical ([id number]) GUIDE 6FR XBLAD Cardinal 1 [id number] 839010 756723 196432 1 0 3.5 catheter Health ([id number]) EUPHORA 3.0 x Medtronic 1 [id number] 430920 474487 834550 5 10 balloon ([id number]) EXOSEAL 6Fr Cardinal 1 EX600 438315 926712 981985 1 0 (EX600) Health Signature Audit [place] Stage Time Signature Unsigned Intra-Procedure 09/09/2017 Yue Mchugh 1:13:38 PM RT(R) Signatures Monitor : Win Whaley RT Signature : Date : Time : Monitor : Yue Mchugh RT Signature : Date : Time : [place] [address] [place] [address]
[~2017-09-08 21:11] MED LIST changes: -PHENAZOPYRIDIN200 MG PO
[2017-09-08 22:05] LABS: BASOPHILS 0.2 % (0-2); EOSINOPHILS 3.8 % (0-7); HEMATOCRIT 40.2 % (36.0-48.0); HEMOGLOBIN 13.3 g/dL (12-16); IMMATURE GRANULOCYTES 0.2 % (0-5); LYMPHOCYTES 31.3 % (15-50); MCHC 33.1 g/dL (31.0-37.0); MCV 87.8 fL (80.0-100.0); MEAN PLATELET VOLUME 10.3 fL (7.4-10.4); MONOCYTES 6.3 % (2-11); NEUTROPHILS 58.2 % (40-80); PLATELET COUNT 159 10x3/uL (130-400); RBC 4.58 10x6/uL (4.00-5.40); RDW 13.1 % (11.5-14.5); WBC 4.8 10x3/uL (4.8-10.8)
[2017-09-08 22:14] LABS: APTT 30.9 SECONDS (22.8-39.4); INR 1.02 (0.85-1.17)
[2017-09-08 22:15] LABS: D-DIMER-QUANTITATIVE < 0.27 ug/mLFEU (0.20-0.54)
[2017-09-08 22:22] LABS: ALBUMIN 3.5 g/dL (3.4-5.0); ALKALINE PHOSPHATASE 181 U/L (46-116); ALT (SGPT) 35 U/L (10-68); BILIRUBIN - TOTAL 0.47 mg/dL (0.2-1.3); CALC OSMOLALITY 286 mosm/kg (275-300); CALCIUM 8.7 mg/dL (8.5-10.1); CARBON DIOXIDE 28.2 mmol/L (21.0-32.0); CHLORIDE - SERUM 107 mmol/L (98-107); CREATININE - SERUM 0.7 mg/dL (0.6-1.3); GLUCOSE 98 mg/dL (74-106); PROTEIN - SERUM 7.1 g/dL (6.4-8.2); SODIUM 144 mmol/L (136-145); UREA NITROGEN 12 mg/dL (7-18); eGFR NON AFRICAN AMERICAN > 90 mL/min (90-120)
[2017-09-08 22:27] LABS: AMYLASE - SERUM 43 U/L (25-115); CHOL - HDL RATIO 2.9 ratio (2.3-4.1); CHOLESTEROL, TOTAL 154 mg/dL (0-200); CKMB 0.1 U/L (0.0-3.6); CREATINE KINASE 20 UL (21-215); HDL CHOLESTEROL 54 mg/dL (32-96); LDL CHOLESTEROL 87 mg/dL (0-100); LDL-HDL RATIO 1.6 ratio (1.5-3.5); LIPASE 202 U/L (73-393); TRIGLYCERIDE 69 mg/dL (30-200); TROPONIN-I < 0.017 ng/mL (0.000-0.060)
[2017-09-08 23:52] VITALS: BP 108/65; BMI 22.9
[2017-09-09] LABS: CREATINE KINASE 13 UL (21-215); TROPONIN-I < 0.017 ng/mL (0.000-0.060)
[2017-09-09] MEDS ORDERED: PHENAZOPYRIDIN200 MG PO (00:10)
[2017-09-09 04:00] VITALS: BP 115/75
[2017-09-09 05:57] LABS: BASOPHILS 0.5 % (0-2); EOSINOPHILS 4.9 % (0-7); HEMOGLOBIN 12.1 g/dL (12-16); IMMATURE GRANULOCYTES 0.3 % (0-5); LYMPHOCYTES 36.6 % (15-50); MCH 28.5 pg (26.0-34.0); MCHC 31.8 g/dL (31.0-37.0); MCV 89.6 fL (80.0-100.0); MEAN PLATELET VOLUME 10.4 fL (7.4-10.4); MONOCYTES 6.7 % (2-11); RBC 4.24 10x6/uL (4.00-5.40); RDW 13.4 % (11.5-14.5); WBC 3.9 10x3/uL (4.8-10.8)
[2017-09-09 06:04] LABS: PLATELET COUNT 124 10x3/uL (130-400)
[2017-09-09 06:28] LABS: ALKALINE PHOSPHATASE 166 U/L (46-116); ALT (SGPT) 35 U/L (10-68); CALC OSMOLALITY 288 mosm/kg (275-300); CALCIUM 8.3 mg/dL (8.5-10.1); CARBON DIOXIDE 27.2 mmol/L (21.0-32.0); CHLORIDE - SERUM 110 mmol/L (98-107); CKMB 0.2 U/L (0.0-3.6); CREATINE KINASE 19 UL (21-215); CREATININE - SERUM 0.8 mg/dL (0.6-1.3); GLUCOSE 107 mg/dL (74-106); POTASSIUM - SERUM 4.2 mmol/L (3.5-5.1); PROTEIN - SERUM 6.2 g/dL (6.4-8.2); SODIUM 145 mmol/L (136-145); TROPONIN-I < 0.017 ng/mL (0.000-0.060); UREA NITROGEN 12 mg/dL (7-18); eGFR NON AFRICAN AMERICAN 79 mL/min (90-120)
[2017-09-09 07:59] VITALS: BP 106/66
[2017-09-09 12:08] VITALS: BP 98/62
[2017-09-09 12:59] VITALS: Ht 180.3 cm; Wt 72.9 kg
[2017-09-09 13:50] VITALS: BP 102/57
== END 2017-09-09 19:22 | disposition home or self-care (01) ==
LOC: D.ER 21:11 → D.M2 23:09 → OBSVTIME 23:09 → D.EDHOLD 23:09 → D.M2 23:38
PROVIDERS: Family Medicine
DX: T82.855A Stenosis of coronary artery stent, initial encounter (principal); Y83.8 Other surgical procedures as the cause of abnormal reaction of the patient, or of later complication, without mention of misadventure at the time of the procedure; I25.110 Atherosclerotic heart disease of native coronary artery with unstable angina pectoris; K21.9 Gastro-esophageal reflux disease without esophagitis; J44.9 Chronic obstructive pulmonary disease, unspecified

== ENCOUNTER → 2017-09-11 19:18 | Outpatient (CLI) | payer MEDICARE, OTHER ==
[2017-09-09 12:59] VITALS: BMI 22.4
[~2017-09-11 19:18] MED LIST changes: +PHENAZOPYRIDIN200 MG PO
== END | disposition home or self-care (01) ==
LOC: D.LABREF 19:18
DX: N39.0 Urinary tract infection, site not specified (principal)

== ENCOUNTER 2017-09-15 19:59 | Emergency (ER) | payer MEDICARE, OTHER ==
[2017-09-09 12:59] VITALS: BMI 22.4
[2017-09-15 21:26] LABS: BASOPHILS 0.5 % (0-2); EOSINOPHILS 1.1 % (0-7); HEMATOCRIT 39.4 % (36.0-48.0); HEMOGLOBIN 12.8 g/dL (12-16); LYMPHOCYTES 29.1 % (15-50); MCH 28.9 pg (26.0-34.0); MCHC 32.5 g/dL (31.0-37.0); MCV 88.9 fL (80.0-100.0); MONOCYTES 7.4 % (2-11); NEUTROPHILS 61.9 % (40-80); RBC 4.43 10x6/uL (4.00-5.40); RDW 13.4 % (11.5-14.5); WBC 5.5 10x3/uL (4.8-10.8)
[2017-09-15 21:28] LABS: PLATELET COUNT 149 10x3/uL (130-400)
[2017-09-15 21:44] LABS: ALBUMIN 3.4 g/dL (3.4-5.0); ALKALINE PHOSPHATASE 160 U/L (46-116); ALT (SGPT) 27 U/L (10-68); CALC OSMOLALITY 283 mosm/kg (275-300); CALCIUM 8.8 mg/dL (8.5-10.1); CARBON DIOXIDE 27.9 mmol/L (21.0-32.0); CHLORIDE - SERUM 109 mmol/L (98-107); CREATININE - SERUM 0.9 mg/dL (0.6-1.3); GLUCOSE 88 mg/dL (74-106); POTASSIUM - SERUM 3.8 mmol/L (3.5-5.1); SODIUM 143 mmol/L (136-145); UREA NITROGEN 12 mg/dL (7-18); eGFR NON AFRICAN AMERICAN 69 mL/min (90-120)
[2017-09-15 21:48] LABS: TROPONIN-I < 0.017 ng/mL (0.000-0.060)
== END 2017-09-15 23:50 | disposition home or self-care (01) ==
LOC: D.ER 19:59
PROVIDERS: Physician Assistant
DX: R20.2 Paresthesia of skin (principal); Z86.79 Personal history of other diseases of the circulatory system

== ENCOUNTER → 2017-09-17 15:06 | Outpatient (CLI) | payer MEDICARE, OTHER ==
[2017-09-09 12:59] VITALS: BMI 22.4
== END | disposition home or self-care (01) ==
LOC: D.MRI 15:06
DX: G45.9 Transient cerebral ischemic attack, unspecified (principal)

== ENCOUNTER → 2017-09-29 20:40 | Outpatient (CLI) | payer MEDICARE, OTHER ==
[2017-09-09 12:59] VITALS: BMI 22.4
== END | disposition home or self-care (01) ==
LOC: D.LABREF 20:40
DX: N39.0 Urinary tract infection, site not specified (principal)

== ENCOUNTER → 2017-10-23 08:40 | Outpatient (CLI) | payer MEDICARE, OTHER ==
[2017-09-09 12:59] VITALS: BMI 22.4
== END | disposition home or self-care (01) ==
LOC: D.MRI 08:40
DX: M54.5 Low back pain (principal)

== ENCOUNTER 2018-02-28 10:00 | Outpatient (CLI) | payer MEDICARE, OTHER ==
[~2018-02-28] VITALS: Ht 180.3 cm; Wt 71.8 kg
--- NOTE | ~2018-02-28 | OP ---
PATIENT NAME: RUTHIE PAUL MEDICAL RECORD: [id number] :64 LOCATION:D.CAT ADMISSION DATE: SURGEON: AKSHAT CRUM MD DATE OF OPERATION: 02/28/2018 PROCEDURES: 1. PTCA of LAD. 2. PTCA of left circumflex. 3. Intravascular ultrasound of the LAD. 4. Intravascular ultrasound of the left circumflex. 5. Left heart catheterization. 6. Selective coronary angiography. 7. Left ventriculogram. INDICATION: Angina and coronary artery disease. PROCEDURE IN DETAIL: After informed consent was obtained and after a detailed explanation of risks, benefits as well as alternative therapies, the patient elected to proceed with angiogram and angioplasty. The right femoral area was prepped and draped in normal sterile fashion. Right femoral artery was cannulated via modified Seldinger technique with placement of 6-Latvian sheath. All catheters exchanged through this sheath. FINDINGS: The left ventriculogram was performed in standard 30-degree GARCIA view, reveals good cardiac wall motion throughout all segments. Overall ejection fraction estimated 60%. SELECTIVE CORONARY ANGIOGRAPHY: 1. Left main is with no significant angiographic disease. 2. Left anterior descending has previously placed stent. Intravascular ultrasound reveals up to 70% stenosis in the mid vessel; however, the proximal vessel has no significant disease. 3. The left circumflex has a previously placed stent. Intravascular ultrasound reveals that there is 70% in-stent restenosis proximally. 4. Right coronary has mild irregularities, but no flow-limiting stenosis. PTCA OF THE LAD AND CIRCUMFLEX: A 3.0 balloon was used in the LAD and circumflex. As the patient has esophageal varices and has had bleeding problems in the past, drug-eluting stents are not a good option for her. Result was 0% residual stenosis. OVERALL IMPRESSION: Successful PTCA for in-stent restenosis of both the LAD and circumflex, both going from greater than 70% initial stenosis to 0% residual stenosis. TRANSINT:[id number] Voice Confirmation ID: [id number] DOCUMENT ID: [id number] OPERATIVE REPORT [id number] HUMBERTORUTHIEAKSHAT MCALLISTER MD at 1059 CC: [id number] DICTATION DATE: 02/28/18 1225 DIRECTOR HOSPICE OPERATIONS: 02/28/18 1238 DEP CLI 02/28/18 [facility] [address] [place] [address]
--- NOTE | ~2018-02-28 | HP ---
PATIENT: RUTHIE CÁRDENAS MEDICAL RECORD: [id number] ACCOUNT: [id number] LOCATION:. D.2116 : 64 ADMISSION DATE: 02/28/18 PCP: MARIO ELIZABETH MD HISTORY AND PHYSICAL EXAMINATION ADMITTING DIAGNOSES: 1. Unstable angina. 2. Coronary artery disease. 3. Previous multivessel PTCA stent. 4. Esophageal varices. 5. Smoking history. 6. COPD. HISTORY OF PRESENT ILLNESS: Ms. Cárdenas presents with 2 days of increasing chest pain just like that of her previous angina. Last cardiac intervention was in August, 2-vessel disease. She has to have bare metal stents as she can only tolerate the Plavix for 1 month without having significant variceal bleeding. PHYSICAL EXAMINATION: GENERAL APPEARANCE: Well-nourished, well-developed, appears stated age. Level of distress, comfortable. PSYCHIATRIC: Mental status, alert, normal affect. Orientation, oriented to time, place and person. EYES: Lids and conjunctiva, noninjected. No discharge, no pallor. ENT: Lips, teeth, gums, normal dentition. Oropharynx, no cyanosis, no pallor. NECK: Carotid arteries, bilateral normal upstroke, no bruits, no thrills. JUGULAR VEINS: No jugular venous pressure or distention. CERVICAL LYMPH NODES: Nontender, nonenlarged. THYROID: Not enlarged. Nontender. No nodules. LUNGS: Respiratory effort, unlabored. CHEST: Normal curvature. No thoracic deformity. No chest wall tenderness. Percussion, resonant. Auscultation, clear. No wheezes, no rales, no rhonchi. CARDIOVASCULAR: Precordial exam, nondisplaced. No heaves or pericardial thrills. Rate and rhythm, regular. Heart sounds, normal S1, normal S2. No S3, no gallop, no rub. Systolic murmur, not heard. Diastolic murmur, not heard. EXTREMITIES: No cyanosis, no edema. Peripheral pulses, full and equal in all extremities, except as noted. No bruits appreciated. ABDOMEN: Soft, nondistended. Normal aorta. No bruit. Nontender. No masses. Liver, nontender, no hepatomegaly. Spleen, nontender, no splenomegaly. MUSCULOSKELETAL: No joint tenderness. No joint swelling. No erythema. NEUROLOGICAL: Normal gait, normal strength, normal tone. SKIN: Warm and dry. OVERALL IMPRESSION: Chest pain compatible with angina, escalating fashion, most likely she has recurrent hemodynamically significant coronary artery disease. We will proceed with coronary angiography. Further care depends upon findings of the angiography. TRANSINT:[id number] Voice Confirmation ID: [id number] DOCUMENT ID: [id number] HISTORY AND PHYSICAL [id number] RUTHIE CÁRDENAS JEFFREY MD at 1225 CC: [id number] DICTATION DATE: 02/28/18 1043 FASHION ARTIST: 02/28/18 1054 [facility] [address] [place] [address]
--- NOTE | ~2018-02-28 | HEMODYNAMI ---
PATIENT:RUTHIE PAUL MEDICAL RECORD: [id number] : 64 LOCATION:[facility] D.2116 ADMISSION DATE: 02/28/18 Generatedon:02/28/201812:30 Patient name: RUTHIE PAUL Patient #: [id number] : 1960 Date of study: 02/28/2018 Page: Of Hemodynamic Procedure Report Patient Data Patient Demographics Procedure consent was obtained First Name: RUTHIE Gender: Female Last Name: HUMBERTO : 1960 [facility] Initial: LEVI Age: 57 year(s) Patient #: [id number] Race: SSN: [id number] Additional ID: [id number] Contact details Address: [place] [address] State: [place] City: [place] Zip code: [address] Past Medical History Allergies Allergen Reaction Date Comments Reported Other 01/02/2016 metoclopramide hcl, zolpidem allergy tartrate,pcn,ambien,doxycyclin,vancomycin,macrobid . Other 06/01/2017 See chart allergy Admission Admission Data Admission Date: 02/28/2018 Admission Time: 10:00 Room #: .2116 Procedure Procedure Types Cath Procedure Diagnostic Procedure [facility] w/Coronaries Procedure Description Procedure Date Procedure Date: 02/28/2018 Procedure Start Time: 12:00 Procedure End Time: 12:24 Procedure Staff Name Function Juan Diego Rubi MD Performing Physician Sofía Martines RT Monitor Yue Mchugh RT Scrub Willow Fowler RN Nurse Gregory Read RN Nurse Procedure Data Cath Procedure Fluoroscopy Diagnostic fluoroscopy Total fluoroscopy Time: 6.7 time: 6.7 min min Diagnostic fluoroscopy Total fluoroscopy dose: 470 dose: 470 mGy mGy Contrast Material Contrast Material Type Amount (ml) Isovue 300 94 Entry Location Entry Primary Successful Side Size Upsize Upsize Entry Closure Succes sful Closure Location (Fr) 1 (Fr) 2 (Fr) Remarks Device Remarks Femoral Right 5 Fr 6 Fr artery Short Estimated blood loss: 10 ml Diagnostic catheters Device Type Used For End Catheter Placement MULTIPACK Pigtail 5 Fr Procedure catheter MULTIPACK JL 4.0 5Fr Procedure catheter MULTIPACK 3DRC 5Fr Procedure catheter Procedure Complications No complications Procedure Medications Medication Administration Route Dosage 0.9% NaCl I.V. 100 ml/hr Oxygen etCO2 Nasal cannula 2 l/min Lidocaine 2% added to field 20 Heparin Flush Bag added to field 2 bags (1000units/500ml NS) Versed I.V. 2 mg Fentanyl I.V. 50 mcg Heparin Bolus I.V. 4000 units Integrilin (Bolus I.V. 6.8 ml 2mg/ml) Versed I.V. 2 mg Fentanyl I.V. 25 mcg Plavix P.O. 600 mg Hemodynamics Rest Heart Rate: 62 (bpm) Snapshots Pre Cath Intra NCS Post Cath Vital Signs Time Heart Resp SPO2 etCO2 NIBP (mmHg) Rhythm Pain Sedation Rate (ipm) (%) (mmHg) Status Level (bpm) 11:43:42 62 13 100 39.7 140/80(109) NSR 0 (11) 10(A) , No pain 11:48:04 64 13 98 38.2 122/68(92) NSR 0 (11) 10(A) , No pain 11:52:21 57 12 98 42.8 119/63(89) SB 0 (11) 10(A) , No pain 11:56:37 58 11 98 41.2 114/58(77) SB 0 (11) 10(A) , No pain 12:00:49 57 13 98 33 110/68(91) SB 0 (11) 10(A) , No pain 12:05:00 58 12 98 38.2 109/58(74) SB 0 (11) 9(A) , No pain 12:09:14 59 11 98 39 103/49(67) SB 0 (11) 9(A) , No pain 12:13:28 58 11 98 39.7 99/50(71) SB 0 (11) 9(A) , No pain 12:17:38 55 14 98 39.7 108/53(72) SB 0 (11) 9(A) , No pain 12:21:48 59 14 99 39.7 105/66(88) SB 0 (11) 10(A) , No pain Medications Time Medication Route Dose Verified Delivered Reason Notes Effectiveness by by 11:42:53 0.9% NaCl I.V. 100 Juan Diego Willow used for ml/hr Greyson Fowler [employer] advisors 11:43:00 Oxygen etCO2 2 Juan Diego Willow used for Nasal l/min Greyson Fowler procedure cannula RN 11:43:06 Lidocaine 2% added 20ml Juan Diego Juan Diego for local to vial Greyson Rubi MD anesthetic field 11:43:11 Heparin Flush added 2 Juan Diego Juan Diego used for Bag to bags Greyson Rubi MD procedure (1000units/500ml field NS) 11:55:58 Versed I.V. 2 mg Juan Diego Willow for sedation Greyson Fowler RN 11:56:07 Fentanyl I.V. 50 Juan Diego Willow for sedation mcg Greyson Fowler RN 12:01:27 Versed I.V. 2 mg Juan Diego Willow for sedation Greyson Fowler RN 12:01:39 Fentanyl I.V. 25 Juan Diego Willow for sedation mcg Greyson Fowler RN 12:06:46 Heparin Bolus I.V. 4000 Juan Diego Velásquezyla for verif ied units Greyson Fowler anticoagulation with Dr. ZAIN Rubi 12:11:44 Integrilin I.V. 6.8 Juan Diego Willow for waste d (Bolus 2mg/ml) ml Greyson Fowler anticoagulation 3.2mL RN 12:23:39 Plavix P.O. 600 Juan Diego Velásquezyla for mg Greyson Fowler antiplatelet RN therapy Procedure Log Time Note 11:24:08 Willow Fowler RN sent for patient. Start room use. 11:24:09 Time tracking: Regular hours (M-F 7:00 - 5:00) 11:24:13 Plan of Care:Hemodynamics will remain stable., Cardiac rhythm will remain stable., Comfort level will be maintained., Respiratory function will remain adequate., Patient/ family verbilizes understanding of procedure., Procedure tolerated without complication., Recovers from procedure without complications.. 11:35:31 Patient received from ED to CCL 1 Alert and oriented. Tansferred to table in Supine position. 11:35:33 Warm blankets applied, and yeni hugger turned on for patient comfort. 11:35:33 Correct patient and procedure confirmed by team. 11:35:35 Signed procedure consent form obtained from patient. 11:35:37 ECG and BP/O2 sat monitors applied to patient. 11:35:46 H&P Date Dictated: 02/28/2018 Emergent; H&P N/A. 11:36:00 Pre-procedure instructions explained to patient. 11:36:01 Pre-op teaching completed and patient verbalized understanding. 11:36:04 Family in waiting room. 11:36:07 Patient NPO since Midnight. 11:42:34 Vital chart was started 11:42:53 0.9% NaCl 100 ml/hr I.V. was administered by Willow Fowler RN; used for procedure; 11:43:00 Oxygen 2 l/min etCO2 Nasal cannula was administered by Willow Fowler RN; used for procedure; 11:43:06 Lidocaine 2% 20ml vial added to field was administered by Juan Diego Rubi MD; for local anesthetic; 11:43:11 Baseline sample Acquired. 11:43:11 Heparin Flush Bag (1000units/500ml NS) 2 bags added to field was administered by Juan Diego Rubi MD; used for procedure; 11:43:16 Rhythm: sinus rhythm 11:43:19 Full Disclosure recording started 11:43:25 Is the patient allergic to Iodine/contrast media? No. 11:43:26 Was the patient premedicated? Yes 11:43:28 Is patient on blood thinner?No 11:43:30 Patient diabetic? No. 11:43:37 Snore? Yes 11:43:39 Sleep apnea? No 11:44:14 Airway obstruction? Yes asthma emphezyma 11:44:19 Dentures? No ? 11:47:31 Patient pain scale 6/10 ?. 11:47:40 IV patent on arrival in left forearm with 0.9% NaCl at [facility]. 11:47:43 Lab results completed and on chart. 11:47:49 Right groin area was prepped with chlora-prep and draped in sterile fashion 11:47:49 Alarms reviewed by R. N. 11:47:50 Sharps counted by scrub and verified by R.N. 11:50:35 Physician paged 11:52:19 Zero performed for pressure channel P1 11:55:36 Physician arrived 11:55:36 --------ALL STOP TIME OUT------ 11:55:42 Right groin site verified by team. 11:55:58 Versed 2 mg I.V. was administered by Willow Fowler RN; for sedation; 11:56:07 Fentanyl 50 mcg I.V. was administered by Willow Fowler RN; for sedation; 11:56:18 Physical assessment completed. ASA score P 2 - A patient with mild systemic disease as per Juan Diego Rubi MD. 11:56:22 Sedation plan: IV Moderate Sedation Medication:Versed, Fentanyl 11:56:27 Use device set Femoral Dx 11:56:28 ACIST Syringe (12083) opened to sterile field. 11:56:29 Bag Decanter (2002S) opened to sterile field. 11:56:29 Medline Cath Pack ([id number]) opened to sterile field. 11:56:30 DIAGNOSTIC WIRE .035 260cm J wire (920000) opened to sterile field. 11:56:31 ACIST Hand Control (43813) opened to sterile field. 11:56:31 ACIST Manifold (17173) opened to sterile field. 11:56:32 DIAGNOSTIC Multipack 5Fr catheter set (XP5219) opened to sterile field. 11:56:34 Tegaderm 4 x 4 (1626W) opened to sterile field. 11:56:36 PERCUTANEOUS ENTRY 19GA needle opened to sterile field. 11:56:38 SHEATH Prelude 5Fr 0.035 (LEU-7V-28-035) opened to sterile field. 11:59:44 Procedure started. 12:00:11 Local anesthetic to right femoral artery with Lidocaine 2% by Juan Diego Rubi MD.INITIAL ACCESS ONLY 12:00:23 A 5 Fr sheath was inserted into the Right Femoral artery 12:00:33 A MULTIPACK Pigtail 5 Fr catheter was advanced over the wire and used for Procedure. 12:01:27 Versed 2 mg I.V. was administered by Willow Fowler RN; for sedation; 12:01:39 Fentanyl 25 mcg I.V. was administered by Willow Fowler RN; for sedation; 12:01:55 LV angiography performed. 12:01:57 Catheter removed. 12:02:09 EF : 60 % 12:02:17 A MULTIPACK JL 4.0 5Fr catheter was advanced over the wire and used for Procedure. 12:02:24 LCA angiography performed. 12:02:53 Catheter removed. 12:03:10 A MULTIPACK 3DRC 5Fr catheter was advanced over the wire and used for Procedure. 12:06:37 RCA angiography performed. 12:06:39 Catheter removed. 12:06:43 Proceeding to intervention. 12:06:46 Heparin Bolus 4000 units I.V. was administered by Wlilow Fowler RN; for anticoagulation; verified with Dr. Rubi 12:07:19 SHEATH 6FR [place] (ZIW069) opened to sterile field. 12:07:19 INFLATOR Merit BasixCompak (JF6264) opened to sterile field. 12:07:20 CHOICE PT Extra Support 182cm wire ([id number]) opened to sterile field. 12:07:21 GUIDE 6FR XBLAD 3.5 catheter ([id number]) opened to sterile field. 12:07:48 Sheath upsized to a 6 Fr Short. 12:11:44 Integrilin (Bolus 2mg/ml) 6.8 ml I.V. was administered by Willow Fowler RN; for anticoagulation; wasted 3.2mL 12:13:19 6 Fr XBLAD3.5 guide catheter was inserted over the wire 12:13:24 Whisper and choice PT wire advanced. 12:15:31 Inflate balloon Inflation number: 1 A EUPHORA 3.0 x 15 Balloon ([id number]) was prepped and advanced across the Mid LAD, then inflated to 11 ELE for 0:00 (min:sec). 12:15:45 IVUS catheter advanced over wire. 12:15:46 [place] Nisqually Eagleye IVUS Catheter (09842U) opened to sterile field. 12:18:58 IVUS catheter removed over wire. 12:20:08 Inflation number: 1 The EUPHORA 3.0 x 15 Balloon ([id number]) was reinflated across the Prox CX, to 15 ELE for 0:06 (min:sec). 12:20:34 Inflation number: 2 The EUPHORA 3.0 x 15 Balloon ([id number]) was reinflated across the Prox CX, to 19 ELE for 0:05 (min:sec). 12:20:54 EXOSEAL 6Fr (EX600) opened to sterile field. 12:21:15 Balloon removed over the wire. 12:21:16 Wire removed. 12:21:18 Guide catheter removed. 12:21:26 Procedure ended.(Physican Out) 12:21:50 Fluoroscopy time 06.70 minutes. 12::55 Fluoroscopy dose: 470 mGy 12::55 Flurop Dose total: 470 12:21:59 Contrast amount:Isovue 300 94ml. 12:22:01 Sharps counted by scrub and verified by R.N. 12:22:02 Insertion/operative site no bleeding no hematoma. 12:22:09 Post Procedure Pulses reassessed and unchanged 12:22:15 Post-procedure physical assessment completed. ASA score P 2 - A patient with mild systemic disease as per Juan Diego Rubi MD. 12:22:19 Post procedure rhythm: unchanged. 12::27 Estimated blood loss: 10 ml 12:22:29 Post procedure instruction explained to patient.Patient verbalizes understanding. 12:22:57 Procedure and supply charges have been captured, reviewed, submitted and are correct. 12:23:39 Plavix 600 mg P.O. was administered by Willow Fowler RN; for antiplatelet therapy; 12:24:35 Procedure Complication : No complications 12:24:39 Vital chart was stopped 12:24:39 See physician's report for complete and final results. 12:24:42 Report given to Pre/Post Procedure Room. 12:24:48 Patient transfered to [facility] with Bed. 12:24:51 Procedure ended. 12:24:51 Full Disclosure recording stopped 12:24:58 End room use (Document Last) Intervention Summary Intervention Notes Time ActionType Lesion and Equipment Action# Pressure Duration Attributes Used 12:15:31 Inflate Mid LAD EUPHORA 1 11 00:00 balloon 3.0 x 15 Balloon ([id number]) 12:20:08 Reinflate Prox CX EUPHORA 1 15 00:06 balloon 3.0 x 15 Balloon ([id number]) 12:20:34 Reinflate Prox CX EUPHORA 2 19 00:05 balloon 3.0 x 15 Balloon ([id number]) Device Usage Item Name Manufacture Quantity Catalog Number Hospital Part Current M inimal Lot# / Charge Number Stock Stock Serial# Code ACIST Syringe Acist 1 58787 305083 857686 575887 2 0 () [employer] Bag Decanter Microtek 1 536334 88391 220912 5 (2002S) Medical Inc. Medline Cath Medline 1 [id number] 319895 24142 849000 5 Pack ([id number]) DIAGNOSTIC WIRE St Minh 1 930316 442501 962484 147179 3 0 .035 260cm J wire (102790) ACIST Hand Acist 1 32414 108218 990846 028344 5 Control (66411) Medical Systems Inc ACIST Manifold Acist 1 09006 172716 297399 947907 5 (09637) Medical Systems Inc DIAGNOSTIC Cardinal 1 PV6477 212105 61233 752722 3 0 Multipack 5Fr Health catheter set (YF3598) Tegaderm 4 x 4 3M 1 1626W 288845 501882 832160 5 (1626W) PERCUTANEOUS Cook Medical 1 Z24915 508545 221394 5 ENTRY 19GA needle SHEATH Prelude Merit 1 VLI-5N-11-035 267923 121562 373560 5 5Fr 0.035 Medical (MPA-5R-09-035) MULTIPACK Cardinal 1 849642 5 Pigtail 5 Fr Health catheter MULTIPACK JL Cardinal 1 793480 5 4.0 5Fr Health catheter MULTIPACK 3DRC Cardinal 1 213054 5 5Fr catheter Health SHEATH 6FR Terumo 1 PAR798 391318 402750 147999 4 0 [place] (LGO645) INFLATOR Merit Merit 1 LY4186 362141 992812 910447 1 5 BioMarker StrategiesJordan Valley Medical CenterNatural Convergence (CM3129) CHOICE PT Extra [place] 1 [id number] 185376 761016 734381 5 Support 182cm Scientific wire ([id number]) GUIDE 6FR XBLAD Cardinal 1 [id number] 204989 217304 787332 1 0 3.5 catheter Health (46363710) EUPHORA 3.0 x Medtronic 1 [id number] 350389 269245 311456 5 [id number] 15 Balloon ([id number]) [place] 1 70052I 848678 019145 875137 8 Nisqually Eagleye IVUS Catheter (63394F) EXOSEAL 6Fr Cardinal 1 EX600 246093 194017 670585 1 0 (EX600) Health Signature Audit [place] Stage Time Signature Unsigned Intra-Procedure 02/28/2018 Sofía Martines 12:30:35 PM RT(R) Signatures Monitor : Sofía Martines Signature : RT Date : Time : [facility] [address] [place] [address]
[2018-02-28 10:46] LABS: BASOPHILS 0.2 % (0-2); EOSINOPHILS 4.4 % (0-7); HEMATOCRIT 41.7 % (36.0-48.0); HEMOGLOBIN 13.7 g/dL (12-16); IMMATURE GRANULOCYTES 0.2 % (0-5); LYMPHOCYTES 33.6 % (15-50); MCH 29.1 pg (26.0-34.0); MCHC 32.9 g/dL (31.0-37.0); MCV 88.7 fL (80.0-100.0); MEAN PLATELET VOLUME 10.8 fL (7.4-10.4); MONOCYTES 7.2 % (2-11); NEUTROPHILS 54.4 % (40-80); RDW 13.7 % (11.5-14.5); WBC 4.3 10x3/uL (4.8-10.8)
[2018-02-28 10:50] LABS: PLATELET COUNT 116 10x3/uL (130-400)
[2018-02-28 11:06] LABS: APTT 28.5 SECONDS (22.8-39.4); INR 0.99 (0.85-1.17); PROTIME 12.7 SECONDS (11.6-15.0)
[2018-02-28 11:15] LABS: ALBUMIN 3.2 g/dL (3.4-5.0); ALKALINE PHOSPHATASE 157 U/L (46-116); ALT (SGPT) 34 U/L (10-68); BILIRUBIN - TOTAL 0.56 mg/dL (0.2-1.3); CALC OSMOLALITY 283 mosm/kg (275-300); CALCIUM 8.7 mg/dL (8.5-10.1); CARBON DIOXIDE 30.6 mmol/L (21.0-32.0); CHLORIDE - SERUM 106 mmol/L (98-107); CREATININE - SERUM 0.7 mg/dL (0.6-1.3); GLUCOSE 92 mg/dL (74-106); PROTEIN - SERUM 6.4 g/dL (6.4-8.2); SODIUM 143 mmol/L (136-145); UREA NITROGEN 9 mg/dL (7-18); eGFR NON AFRICAN AMERICAN > 90 mL/min (90-120)
[2018-02-28 11:30] LABS: AMYLASE - SERUM 28 U/L (25-115); CKMB 0.1 U/L (0.0-3.6); LIPASE 134 U/L (73-393); MAGNESIUM - SERUM 1.9 mg/dL (1.8-2.4)
[2018-02-28 11:31] LABS: CREATINE KINASE 7 UL (21-215); TROPONIN-I < 0.017 ng/mL (0.000-0.060)
[2018-02-28] MEDS ORDERED: CLEOCIN HCL150 MG (12:53)
[2018-02-28 13:19] VITALS: BP 117/57; Ht 180.3 cm; Wt 71.8 kg
[2018-02-28] MEDS ORDERED: PLAVIX75 MG PO (14:35)
== END 2018-02-28 16:58 | disposition home or self-care (01) ==
LOC: D.CATH 10:00 → D.ER 10:00 → EDSTATUS 11:00 → D.M2 12:18 → D.CATH 16:58
PROVIDERS: Family Medicine
DX: I25.119 Atherosclerotic heart disease of native coronary artery with unspecified angina pectoris (principal); T82.855A Stenosis of coronary artery stent, initial encounter; I85.00 Esophageal varices without bleeding; Z01.812 Encounter for preprocedural laboratory examination

== ENCOUNTER 2018-06-04 09:37 | Outpatient (CLI) | payer MEDICARE, OTHER ==
[2018-06-04] VITALS (9 sets, daily range): BP systolic 80–113; BP diastolic 49–68; Ht 180.3 cm; Wt 68.2 kg
[~2018-06-04] VITALS: Ht 180.3 cm; Wt 68.2 kg
--- NOTE | ~2018-06-04 | HEMODYNAMI ---
PATIENT:RUTHIE PAUL MEDICAL RECORD: [id number] : 64 LOCATION:[facility] DIrisE09[facility]# [id number] ADMISSION DATE: 06/04/18 Generatedon:06/04/201814:39 Patient name: RUTHIE PAUL Patient #: [id number] : 1960 Date of study: 06/04/2018 Page: Of Hemodynamic Procedure Report Patient Data Patient Demographics Procedure consent was obtained First Name: RUTHIE Gender: Female Last Name: HUMBERTO : 1960 [facility] Initial: LEVI Age: 57 year(s) Patient #: [id number] Race: SSN: [id number] Additional ID: [id number] Contact details Address: [place] [address] State: [place] City: [place] Zip code: [address] Past Medical History Allergies Allergen Reaction Date Comments Reported Other 01/02/2016 metoclopramide hcl, zolpidem allergy tartrate,pcn,ambien,doxycyclin,vancomycin,macrobid . Other 06/01/2017 See chart allergy Other 06/04/2018 Morphine, Niacin, Zolpidem tartrate, erythromycin allergy base, metoclopramide HCL, PCN, EGG, nitrofurantoin , Admission Admission Data Admission Date: 06/04/2018 Admission Time: 10:37 Admit Source: Other Room #: D.E09 Lab Results Lab Result Date: 06/04/2018 Lab Result Time: 9:48 Biochemistry Name Units Result Min Max BUN mg/dl 10 --(-*--)-- 7 18 Creatinine mg/dl 0.8 --(-*--)-- 0.6 1.3 CBC Name Units Result Min Max Hematocrit % 39.4 -*(----)-- 42 54 Hemoglobin g/dl 12.5 *-(----)-- 13.5 17.5 Procedure Procedure Types Cath Procedure Diagnostic Procedure LHC LHC w/Coronaries FFR/IVUS Intra-Coronary IVUS Initial Intra-Coronary IVUS Additional PCI Procedure Coronary Stent Coronary Stent Initial PTCA PTCA Initial Procedure Description Procedure Date Procedure Date: 06/04/2018 Procedure Start Time: 14:17 Procedure End Time: 14:37 Procedure Staff Name Function Juan Diego Rubi MD Performing Physician Luis Wheeler RT Monitor Ayala Ramirez RT Scrub Henrique Светлана RT Clinical Trial Leader Willow Fowler RN Nurse Procedure Data Cath Procedure Fluoroscopy Diagnostic fluoroscopy Total fluoroscopy Time: 5.3 time: 5.3 min min Diagnostic fluoroscopy Total fluoroscopy dose: 295 dose: 295 mGy mGy Contrast Material Contrast Material Type Amount (ml) Isovue 300 71 Entry Location Entry Primary Successful Side Size Upsize Upsize Entry Closure Succes sful Closure Location (Fr) 1 (Fr) 2 (Fr) Remarks Device Remarks Femoral Right 5 Fr 6 Fr Exoseal artery Short Estimated blood loss: 10 ml Diagnostic catheters Device Type Used For End Catheter Placement MULTIPACK Pigtail 5 Fr Procedure catheter MULTIPACK JL 4.0 5Fr Procedure catheter MULTIPACK 3DRC 5Fr Procedure catheter Procedure Complications No complications Procedure Medications Medication Administration Route Dosage 0.9% NaCl I.V. 100 ml/hr Oxygen etCO2 Nasal cannula 2 l/min Lidocaine 2% added to field 20 Heparin Flush Bag added to field 2 bags (1000units/500ml NS) Versed I.V. 2 mg Fentanyl I.V. 25 mcg Versed I.V. 1 mg Heparin Bolus I.V. 4000 units Integrilin (Bolus I.V. 6.2 ml 2mg/ml) Plavix P.O. 600 mg Hemodynamics Rest HGB: 12.5 (g/dl) Heart Rate: 66 (bpm) Snapshots Pre Cath Intra NCS Post Cath Vital Signs Time Heart Resp SPO2 etCO2 NIBP Rhythm Pain Sedation Rate (ipm) (%) (mmHg) (mmHg) Status Level (bpm) 14:04:34 49 19 97 39 107/55(72) NSR 0 (11) 10(A) , No pain 14:08:44 63 10 97 30.5 101/60(72) NSR 0 (11) 10(A) , No pain 14:12:56 58 10 97 42 95/45(67) NSR 0 (11) 10(A) , No pain 14:17:06 58 11 98 41.2 87/46(66) NSR 0 (11) 9(A) , No pain 14:21:12 60 12 98 41.2 87/45(67) NSR 0 (11) 9(A) , No pain 14:25:19 57 13 98 39.7 86/44(68) NSR 0 (11) 9(A) , No pain 14:29:25 60 12 99 42 82/43(60) NSR 0 (11) 9(A) , No pain 14:33:29 65 12 99 40.5 88/48(71) NSR 0 (11) 10(A) , No pain 14:37:33 59 10 100 22.1 101/55(72) NSR 0 (11) 10(A) , No pain Medications Time Medication Route Dose Verified Delivered Reason Notes Effectiveness by by 14:06:48 0.9% NaCl I.V. 100 Juan Diego Willow used for ml/hr Greyson Fowler consulting sales manager 14:06:55 Oxygen etCO2 2 Juan Diego Willow used for Nasal l/min Greyson Fowler procedure cannula RN 14:06:59 Lidocaine 2% added 20ml Juan Diego Farrellrey for local to vial Greyson Rubi MD anesthetic field 14:07:03 Heparin Flush added 2 Juan Diego Juan Diego used for Bag to bags Greyson Rubi MD procedure (1000units/500ml field NS) 14:11:31 Versed I.V. 2 mg Juan Diego Willow for sedation Greyson Fowler RN 14:11:40 Fentanyl I.V. 25 Juan Diego Willow for sedation mcg Greyson Fowler RN 14:16:27 Versed I.V. 1 mg Juan Diego Willow for sedation Greyson Fowler RN 14:26:53 Heparin Bolus I.V. 4000 Juan Diego Willow for verif ied units Greyson Fowler anticoagulation with Dr. ZAIN Rubi 14:27:05 Integrilin I.V. 6.2 Juan Diego Willow for waste d (Bolus 2mg/ml) ml Greyson Fowler anticoagulation 3.8 mL RN 14:27:32 Plavix P.O. 600 Juan Diego Willow for mg Greyson Fowler antiplatelet RN therapy Procedure Log Time Note 13:47:13 Informed consent obtained and on chart 13:47:18 Admit Source: Other 13:47:38 Diagnostic Cath status Elective 13:47:40 Henrique Sotomayor RT(R) sent for patient. Start room use. 13:47:41 Time tracking: Regular hours (M-F 7:00 - 5:00) 13:47:45 Plan of Care:Hemodynamics will remain stable., Cardiac rhythm will remain stable., Comfort level will be maintained., Respiratory function will remain adequate., Patient/ family verbilizes understanding of procedure., Procedure tolerated without complication., Recovers from procedure without complications.. 13:48:11 H&P Date Dictated: 06/04/2018 Within 30 days and on chart.. 13:49:15 Lab Result : BUN 10 mg/dl 13:49:15 Lab Result : Creatinine 0.8 mg/dl 13:49:15 Lab Result : Hematocrit 39.4 % 13:49:15 Lab Result : Hemoglobin 12.5 g/dl 13:49:24 Lab results completed and on chart. 13:54:58 Patient received from ED to CCL 1 Alert and oriented. Tansferred to table in Supine position. 13:55:05 Warm blankets applied, and yeni hugger turned on for patient comfort. 13:55:05 Correct patient and procedure confirmed by team. 13:55:05 ECG and BP/O2 sat monitors applied to patient. 13:55:06 Pre-procedure instructions explained to patient. 13:55:06 Pre-op teaching completed and patient verbalized understanding. 13:55:07 Family in waiting room. 14:03:26 Vital chart was started 14:06:48 0.9% NaCl 100 ml/hr I.V. was administered by Willow Fowler RN; used for procedure; 14:06:55 Oxygen 2 l/min etCO2 Nasal cannula was administered by Willow Fowler RN; used for procedure; 14:06:59 Lidocaine 2% 20ml vial added to field was administered by Juan Diego Rubi MD; for local anesthetic; 14:07:03 Heparin Flush Bag (1000units/500ml NS) 2 bags added to field was administered by Juan Diego Rubi MD; used for procedure; 14:07:46 Baseline sample Acquired. 14:07:48 Rhythm: sinus rhythm 14:07:53 Full Disclosure recording started 14:07:56 Patient NPO since Midnight. 14:08:55 Patient allergic to Other allergyMorphine, Niacin, Zolpidem tartrate, erythromycin base, metoclopramide HCL, PCN, EGG, nitrofurantoin, 14:08:57 Is the patient allergic to Iodine/contrast media? No. 14:08:58 Is patient on blood thinner?No 14:08:59 Patient diabetic? No. 14:09:01 Previous problem with sedation/anesthesia? No ? 14:09:02 Snore? Yes 14:09:03 Sleep apnea? No 14:09:04 Deviated septum? No 14:09:04 Opens mouth fully? Yes 14:09:06 Sticks out tongue? Yes 14:09:10 Airway obstruction? Yes emphysema 14:09:12 Dentures? No ? 14:09:15 Pre procedure: right dorsailis pedis pulse 2+ Normal; easily identifiable; not easily obliterated 14:09:17 Patient pain scale 4/10 chest pain. 14:09:32 IV patent on arrival in right forearm with 0.9% NaCl at O. 14:09:37 Right groin area was prepped with chlora-prep and draped in sterile fashion 14:09:43 Alarms reviewed by R. N. 14:09:43 Sharps counted by scrub and verified by R.N. 14:09:47 Use device set Femoral Dx 14:09:48 ACIST Syringe (14379) opened to sterile field. 14:09:48 Bag Decanter (2002S) opened to sterile field. 14:09:50 ACIST Hand Control (93359) opened to sterile field. 14:09:50 ACIST Manifold (63106) opened to sterile field. 14:09:51 Tegaderm 4 x 4 (1626W) opened to sterile field. 14:09:52 SHEATH 5FR Hawthorne (LJB081) opened to sterile field. 14:09:53 DIAGNOSTIC Multipack 5Fr catheter set (AJ2801) opened to sterile field. 14:09:54 Medline Cath Pack ([id number]) opened to sterile field. 14:09:54 DIAGNOSTIC WIRE .035 260cm J wire (105115) opened to sterile field. 14:10:01 Physician arrived 14:10:01 --------ALL STOP TIME OUT------ 14:10:01 Final Timeout: patient, procedure, and site verified with staff and physician. All members of the team are in agreement. 14:10:02 Right groin site verified by team. 14:10:05 Fire Safety Assessment: A--An alcohol-based skin anteseptic being used preoperatively., C--Open oxygen or nitrous oxide is being used., D--An ESU, laser, or fiber-optic light is being used. 14:10:08 Physical assessment completed. ASA score P 2 - A patient with mild systemic disease as per Juan Diego Rubi MD. 14:10:10 Sedation plan: IV Moderate Sedation Medication:Versed, Fentanyl 14:10:50 Zero performed for pressure channel P1 14:10:55 Zero performed for pressure channel P1 14:11:31 Versed 2 mg I.V. was administered by Willow Fowler RN; for sedation; 14:11:40 Fentanyl 25 mcg I.V. was administered by Willow Fowler RN; for sedation; 14:16:27 Versed 1 mg I.V. was administered by Willow Fowler RN; for sedation; 14:17:55 Procedure started. 14:17:58 Local anesthetic to right femoral artery with Lidocaine 2% by Juan Diego Rubi MD.INITIAL ACCESS ONLY 14:18:26 A 5 Fr sheath was inserted into the Right Femoral artery 14:18:31 A MULTIPACK Pigtail 5 Fr catheter was advanced over the wire and used for Procedure. 14:18:35 LV gram done using GARCIA 14:18:37 Injector settings: Ml/sec: 10, Volume: 20, 14:18:38 LV hemodynamics recorded. 14:18:42 EF : 55 % 14:18:43 Catheter exchanged over wire. 14:18:47 A MULTIPACK JL 4.0 5Fr catheter was advanced over the wire and used for Procedure. 14:19:17 LCA angiography performed. 14:20:17 Catheter exchanged over wire. 14:20:22 A MULTIPACK 3DRC 5Fr catheter was advanced over the wire and used for Procedure. 14:20:41 SHEATH 6FR Hawthorne (QJX761) opened to sterile field. 14:20:42 [place] Eagley[place] IVUS Catheter (88658P) opened to sterile field. 14:20:42 CHOICE PT Extra Support 182cm wire ([id number]) opened to sterile field. 14:20:43 INFLATOR Merit Hawa (CQ2735) opened to sterile field. 14:20:50 RCA angiography performed. 14:21:17 Catheter removed. 14:21:28 GUIDE 6FR XB 3.5 catheter ([id number]) opened to sterile field. 14:21:38 Sheath upsized to a 6 Fr Short. 14:21:47 6 Fr XB 3.5 guide catheter was inserted over the wire 14:21:50 CHOICE PT ES wire advanced. 14::53 Wire advanced across lesion. 14:21:56 IVUS catheter advanced over wire. 14:25:00 IVUS pass to LAD lesion performed. 14:25:02 IVUS catheter removed over wire. 14::53 Heparin Bolus 4000 units I.V. was administered by Willow Fowler RN; for anticoagulation; verified with Dr. Rubi 14:27:05 Integrilin (Bolus 2mg/ml) 6.2 ml I.V. was administered by Willow Fowler RN; for anticoagulation; wasted 3.8 mL 14:27:25 Inflate balloon Inflation number: 1 A NC EUPHORA 3.0 x 15 balloon ([id number]) was prepped and advanced across the Prox LAD, then inflated to 15 ELE for 0:10 (min:sec). 14:27:32 Plavix 600 mg P.O. was administered by Willow Fowler RN; for antiplatelet therapy; 14:28:14 Inflation number: 2 The NC EUPHORA 3.0 x 15 balloon ([id number]) was reinflated across the Prox LAD, to 15 ELE for 0:10 (min:sec). 14:28:26 Balloon removed over the wire. 14:28:31 Wire redirected to CX. 14:29:48 Wire advanced across lesion. 14:30:06 IVUS catheter advanced over wire. 14:30:09 IVUS pass to Circ lesion performed. 14:32:56 IVUS catheter removed over wire. 14:33:36 Place stent Inflation Number: 1 A INTEGRITY RX 3.5 x 18 stent ([id number]) was prepped and advanced across the Mid CX. The stent was deployed at 11 ELE for 0:10 (min:sec). 14:33:40 Stent catheter was removed intact over wire. 14:33:40 Wire removed. 14:33:41 Guide catheter removed. 14:33:50 EXOSEAL 6Fr (EX600) opened to sterile field. 14:34:01 Sheath removed intact; hemostasis achieved with Exoseal to the Right Femoral artery. 14:34:09 Procedure ended.(Physican Out) 14:34:40 Fluoroscopy time 05.30 minutes. 14:34:44 Fluoroscopy dose: 295 mGy 14:34:44 Flurop Dose total: 295 14:34:47 Contrast amount:Isovue 300 71ml. 14:34:48 Sharps counted by scrub and verified by R.N. 14:34:49 Insertion/operative site no bleeding no hematoma. 14:34:51 Post-op/insertion site Right Femoral artery dressed using a 4 x 4 and Tegaderm. 14:34:54 Post right femoral artery:stable, soft, clean and dry 14:34:56 Post Procedure Pulses reassessed and unchanged 14:34:58 Post-procedure physical assessment completed. ASA score P 2 - A patient with mild systemic disease as per Juan Diego Rubi MD. 14:35:00 Post procedure rhythm: unchanged. 14:35:02 Estimated blood loss: 10 ml 14:35:03 Post procedure instruction explained to patient.Patient verbalizes understanding. 14:35:04 Patient needs reinforcement of post procedure teaching. 14:35:34 Procedure type changed to Cath procedure, Diagnostic procedure, LHC, LHC w/Coronaries, FFR/IVUS, Intra-Coronary IVUS Initial, Intra-Coronary IVUS Additional, PCI procedure, Coronary Stent, Coronary Stent Initial, PTCA, PTCA Initial 14:37:28 Procedure and supply charges have been captured, reviewed, submitted and are correct. 14:37:28 Vital chart was stopped 14:37:31 Procedure Complication : No complications 14:37:33 See physician's report for complete and final results. 14:37:34 Report given to Pre/Post Procedure Room. 14:37:36 Patient transfered to Pre/Post Procedure Room with Stretcher. 14:37:39 Procedure ended. 14:37:39 Full Disclosure recording stopped 14:37:43 End room use (Document Last) Intervention Summary Intervention Notes Time ActionType Lesion and Equipment Action# Pressure Duration Attributes Used 14:27:25 Inflate Prox LAD NC EUPHORA 1 15 00:10 balloon 3.0 x 15 balloon ([id number]) 14:28:14 Reinflate Prox LAD NC EUPHORA 2 15 00:10 balloon 3.0 x 15 balloon ([id number]) 14:33:36 Place stent Mid CX INTEGRITY RX 1 11 00:10 3.5 x 18 stent ([id number]) Device Usage Item Name Manufacture Quantity Catalog Number Hospital Part Current Mini mal Lot# / Charge Number Stock Stock Serial# Code ACIST Acist 1 97550 095104 091744 396234 20 Syringe Medical (80654) Systems Inc Bag Decanter Microtek 1 2001S 434322 81640 743831 5 (2001S) Medical Inc. ACIST Hand Acist 1 06209 076317 820294 317272 5 Control Medical (56536) Systems Inc ACIST Acist 1 55409 740748 166253 664999 5 Manifold Medical (34761) Systems Inc Tegaderm 4 x 3M 1 1626W 470992 331410 960531 5 4 (1626W) SHEATH 5FR Terumo 1 JAC177 765491 812276 404727 5 Hawthorne (MVR757) DIAGNOSTIC Cardinal 1 US2181 846692 05466 394290 30 Multipack Health 5Fr catheter set (OO5839) Medline Cath Medline 1 PTON17712 724123 96188 720598 5 Pack ([id number]) DIAGNOSTIC St Minh 1 609485 499360 635866 047437 30 WIRE .035 260cm J wire (576105) MULTIPACK Cardinal 1 039965 5 Pigtail 5 Fr Health catheter MULTIPACK JL Cardinal 1 769904 5 4.0 5Fr Health catheter MULTIPACK Cardinal 1 790106 5 3DRC 5Fr Health catheter SHEATH 6FR Terumo 1 USR551 835467 762510 219111 40 Hawthorne (ZPR026) [place] Crosslake 1 50997C 755890 717660 805271 8 [place] Eagleye IVUS Catheter (56619R) CHOICE PT [place] 1 [id number] 787036 820233 144237 5 Extra Scientific Support 182cm wire ([id number]) INFLATOR Merit 1 OF6878 528896 033861 730415 15 [facility]it [facility] Medical BasixCompak (CZ0448) GUIDE 6FR XB Cardinal 1 [id number] 507156 122240 725443 2 3.5 catheter Health (27586251) NC EUPHORA Medtronic 1 [id number] 077350 825274 173490 1 [id number] 3.0 x 15 balloon ([id number]) INTEGRITY RX Medtronic 1 [id number] 326641 228132 175250 5 [id number] 3.5 x 18 stent ([id number]) EXOSEAL 6Fr Cardinal 1 EX600 469030 936121 868123 10 (EX600) Health Signature Audit [place] Stage Time Signature Unsigned Intra-Procedure 06/04/2018 Luis Wheeler 2:38:58 PM RT(R) Signatures Monitor : Luis Wheeler RT Signature : Date : Time : [address] [address]
[~2018-06-04 09:37] MED LIST changes: +CLEOCIN HCL150 MG
[2018-06-04] MEDS ORDERED: NEURONTIN 300300 MG PO (09:44)
[2018-06-04] MEDS ORDERED: DURAGESIC1 PATCH .1 TRANSDERM (09:45)
[2018-06-04 10:01] LABS: BASOPHILS 0.8 % (0-2); EOSINOPHILS 3.3 % (0-7); HEMATOCRIT 39.4 % (36.0-48.0); HEMOGLOBIN 12.5 g/dL (12-16); IMMATURE GRANULOCYTES 0.2 % (0-5); LYMPHOCYTES 37.3 % (15-50); MCH 28.5 pg (26.0-34.0); MCHC 31.7 g/dL (31.0-37.0); MEAN PLATELET VOLUME 10.3 fL (7.4-10.4); MONOCYTES 9.8 % (2-11); NEUTROPHILS 48.6 % (40-80); RBC 4.38 10x6/uL (4.00-5.40); RDW 14.4 % (11.5-14.5); WBC 5.1 10x3/uL (4.8-10.8)
[2018-06-04 10:02] LABS: PLATELET COUNT 160 10x3/uL (130-400)
[2018-06-04 10:20] LABS: ALBUMIN 3.2 g/dL (3.4-5.0); ALKALINE PHOSPHATASE 142 U/L (46-116); ALT (SGPT) 32 U/L (10-68); BILIRUBIN - TOTAL 0.42 mg/dL (0.2-1.3); CALC OSMOLALITY 285 mosm/kg (275-300); CALCIUM 8.3 mg/dL (8.5-10.1); CARBON DIOXIDE 28.5 mmol/L (21.0-32.0); CHLORIDE - SERUM 108 mmol/L (98-107); CREATININE - SERUM 0.8 mg/dL (0.6-1.3); GLUCOSE 106 mg/dL (74-106); PROTEIN - SERUM 6.5 g/dL (6.4-8.2); SODIUM 144 mmol/L (136-145); UREA NITROGEN 10 mg/dL (7-18); eGFR NON AFRICAN AMERICAN 79 mL/min (90-120)
--- NOTE | 2018-06-04 10:30 | NUR ---
INFORMED CONSENT FOR CARDIAC CATH SIGNED AT THIS TIME, PT DENIES NEEDS, WILL CONTINUE TO MONITOR.
[2018-06-04 10:32] LABS: CKMB 0.3 U/L (0.0-3.6); CREATINE KINASE 22 UL (21-215); TROPONIN-I < 0.017 ng/mL (0.000-0.060)
--- NOTE | 2018-06-04 11:30 | NUR ---
PT AAO IN BED WITH SPOUSE AT BEDSIDE, RESPIRATIONS EVEN AND UNLABORED, ASKING WHAT TIME SHE WILL GO TO THE DIESEL ENGINE MECHANIC APPRENTICE. DIESEL ENGINE MECHANIC APPRENTICE CONTACTED AND STATE THAT THE PATIENT WILL BE TAKEN AROUND 2 PM, PT NOTIFIED OF THIS, DENIES OTHER NEEDS, WILL CONTINUE TO MONITOR.
--- NOTE | 2018-06-04 12:30 | NUR ---
PT IS AAO IN BED, RESPIRATIONS EVEN AND UNLABORED, DENIES NEEDS, WILL CONTINUE TO MONITOR.
--- NOTE | 2018-06-04 12:49 | NUR ---
BP NOTED TO BE TRENDING DOWN, NITRO-PATCH REMOVED, BARK SPUDDER IN DEPARTMENT AT THIS TIME, NOTIFIED OF SITUATION.
--- NOTE | 2018-06-04 13:51 | NUR ---
PT REPORT HANDED OFF TO [facility] REELING OPERATOR. PT STABLE AT TIME OF TRANSPORT TO REELING OPERATOR. SPOUSE SENT WITH PT BELONGINGS.
[2018-06-04] MEDS ORDERED: PLAVIX75 MG PO (14:51)
--- NOTE | 2018-06-04 15:05 | NUR ---
2L NC, NO RESP DISTRESS. RIGHT GROIN 6F EXOSEAL CDI, NO BLEEDING OR HEAMTOMA NOTED. NO C/O PAIN OR NAUSEA. VSS. FAMILY AT BEDSIDE, CALL LIGHT WITHIN REACH.
--- NOTE | 2018-06-04 15:35 | NUR ---
RIGHT GROIN 6F EXOSEAL CDI, NO BLEEDING OR HEMATOMA NOTED. NO C/O AT THIS TIME. VSS. WILL CONTINUE TO MONITOR CLOSELY.
--- NOTE | 2018-06-04 17:35 | NUR ---
HOB ELEVATED 30 DEGREES. RIGHT GROIN 6F EXOSEAL CDI, NO BLEEDING OR HEMATOMA NOTED. SIPPING ON DRINK AND EATING SANDWICH WITH NO C/O NAUSEA. VSS. WILL CONTINUE TO MONITOR.
--- NOTE | 2018-06-04 18:10 | NUR ---
DISCHARGE INSTRUCTIONS ALONG WITH PLAVIX PRESCRIPTION GIVEN, VERBALIZED UNDERSTANDING.
--- NOTE | 2018-06-04 18:25 | NUR ---
LEFT PIV D/C'D WITH CATHETER INTACT, BAND AID TO SITE. UP TO BEDSIDE TO GET DRESSED. AMBULATED TO RESTROOM.
--- NOTE | 2018-06-04 18:40 | NUR ---
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 LEFT FACILITY WITH FAMILY AND ALL PERSONAL BELONGINGS.
--- NOTE | 2018-06-08 10:45 | OP ---
PATIENT NAME: RUTHIE PAUL MEDICAL RECORD: [id number] :64 LOCATION:[facility]- ADMISSION DATE:06/04/18 SURGEON: AKSHAT CRUM MD DATE OF OPERATION: 06/04/2018 PROCEDURES: 1. PTCA stent left circumflex. 2. PTCA, LAD. 3. Intravascular ultrasound of the LAD. 4. Intravascular ultrasound of left circumflex. 5. Left heart catheterization. 6. Selective coronary angiography. 7. Left ventriculogram. INDICATION: Angina and coronary artery disease. PROCEDURE IN DETAIL: After informed consent was obtained and after detailed description of risks, benefits as well as alternative therapies, the patient elected to proceed with angiogram and angioplasty. The right femoral area was prepped and draped in normal sterile fashion. Right femoral artery was cannulated via modified Seldinger technique with placement of 6-Lebanese sheath. All catheters exchanged through this sheath. FINDINGS: The left ventriculogram was performed in standard 30-degree GARCIA view, reveals good cardiac wall motion throughout all segments. Overall ejection fraction estimated at 60%. SELECTIVE CORONARY ANGIOGRAPHY: 1. Left main is with no significant angiographic disease. 2. Left anterior descending has previously placed stent in the proximal vessel. There is greater than 70% in-stent restenosis confirmed by intravascular ultrasound. 3. Left circumflex has a previously placed stent and it is widely patent; however, the mid vessel has greater than 70% stenosis confirmed by intravascular ultrasound. 4. The right coronary has moderate irregularities, but no flow-limiting stenosis. PTCA STENT OF THE LEFT CIRCUMFLEX: The stent used was a 3.5 x 15-mm Integrity stent. Result was 0% residual stenosis. HIGH-PRESSURE PTCA FOR IN-STENT RESTENOSIS OF THE LAD: The balloon used in the previously stented area, that was stenotic, was a 3.0 x 15-mm high-pressure balloon taken to 17 atmospheres. OVERALL IMPRESSION: Successful percutaneous transluminal coronary angioplasty stent of the left circumflex and percutaneous transluminal coronary angioplasty with high pressure percutaneous transluminal coronary angioplasty of the left anterior descending, both going from greater than 70% initial stenosis to 0% residual. TRANSINT:[id number] Voice Confirmation ID: [id number] DOCUMENT ID: [id number] OPERATIVE REPORT [id number] RUTHIE PAUL AKSHAT CRUM MD at 1045 CC: [id number] DICTATION DATE: 06/04/18 1440 RCP: 06/04/18 1510 DIS IN 06/04/18 [facility] [address] [facility], [id number]
--- NOTE | 2018-06-08 10:45 | CN ---
PATIENT NAME:RUTHIE CÁRDENAS MEDICAL RECORD: [id number] : 64 LOCATION:[facility]- ADMIT DATE: 06/04/18 ACCOUNT: [id number] CONSULTING PHYSICIAN: AKSHAT CRUM MD REFERRING PHYSICIAN: AKSHAT CRUM MD DATE OF CONSULTATION: 06/04/2018 ADMITTING DIAGNOSES: 1. Unstable angina. 2. Coronary artery disease. 3. Previous multivessel percutaneous transluminal coronary angioplasty stent. 4. Esophageal varices with history of esophageal bleed. HISTORY OF PRESENT ILLNESS: Ms. Cárdenas presents with unstable angina. She has a history of coronary artery disease, multivessel PTCA stent. She has history of esophageal varices and esophageal bleeding, for which she can only tolerate 30 days of Plavix and she has had bare metal stents, the last being last year. PHYSICAL EXAMINATION: GENERAL APPEARANCE: Well-nourished, well-developed, appears stated age. Level of distress, comfortable. PSYCHIATRIC: Mental status, alert, normal affect. Orientation, oriented to time, place and person. EYES: Lids and conjunctiva, noninjected. No discharge, no pallor. ENT: Lips, teeth, gums, normal dentition. Oropharynx, no cyanosis, no pallor. NECK: Carotid arteries, bilateral normal upstroke, no bruits, no thrills. JUGULAR VEINS: No jugular venous pressure or distention. CERVICAL LYMPH NODES: Nontender, nonenlarged. THYROID: Not enlarged. Nontender. No nodules. LUNGS: Respiratory effort, unlabored. CHEST: Normal curvature. No thoracic deformity. No chest wall tenderness. Percussion, resonant. Auscultation, clear. No wheezes, no rales, no rhonchi. CARDIOVASCULAR: Precordial exam, nondisplaced. No heaves or pericardial thrills. Rate and rhythm, regular. Heart sounds, normal S1, normal S2. No S3, no gallop, no rub. Systolic murmur, not heard. Diastolic murmur, not heard. EXTREMITIES: No cyanosis, no edema. Peripheral pulses, full and equal in all extremities, except as noted. No bruits appreciated. ABDOMEN: Soft, nondistended. Normal aorta. No bruit. Nontender. No masses. Liver, nontender, no hepatomegaly. Spleen, nontender, no splenomegaly. MUSCULOSKELETAL: No joint tenderness. No joint swelling. No erythema. NEUROLOGICAL: Normal gait, normal strength, normal tone. SKIN: Warm and dry. OVERALL IMPRESSION: Unstable angina, most likely she has recurrent hemodynamically significant coronary artery disease and/or restenosis. We will proceed with coronary angiography. Further care depends upon findings of the angiography. TRANSINT:[id number] Voice Confirmation ID: [id number] DOCUMENT ID: [id number] CONSULT REPORT [id number] RUTHIE CÁRDENAS JEFFREY MD at 1045 CC: [id number] DICTATION DATE: 06/04/18 1246 MANAGER STRATE[employer]IC [employer]NERSHIPS: 06/04/18 1309 DIS IN 06/04/18 [place] [address] [place] [address]
== END 2018-06-04 18:40 | disposition home or self-care (01) | DRG 249 ==
LOC: D.OPS 09:37 → D.ER 09:37 → D.EDHOLD 10:37 → D.ER 10:37 → EDSTATUS 15:58 → D.EDHOLD 18:40 → D.OPS 18:40
PROVIDERS: Emergency Medicine; Internal Medicine Interventional Cardiology
PROC: 4A023N7 Measurement of Cardiac Sampling and Pressure, Left Heart, Percutaneous Approach (ICD-10-PCS; 2018-06-04)
PROC: B2111ZZ Fluoroscopy of Multiple Coronary Arteries using Low Osmolar Contrast (ICD-10-PCS; 2018-06-04)
PROC: B2151ZZ Fluoroscopy of Left Heart using Low Osmolar Contrast (ICD-10-PCS; 2018-06-04)
PROC: 02703DZ Dilation of Coronary Artery, One Artery with Intraluminal Device, Percutaneous Approach (ICD-10-PCS; principal; 2018-06-04 13:47)
PROC: B241ZZ3 Ultrasonography of Multiple Coronary Arteries, Intravascular (ICD-10-PCS; 2018-06-04 13:47)
DX: I25.110 Atherosclerotic heart disease of native coronary artery with unstable angina pectoris (principal)

== ENCOUNTER 2018-06-17 09:44 | Inpatient (IN) | payer MEDICARE, OTHER ==
[~2018-06-17] VITALS: Ht 180.3 cm; Wt 71.7 kg
--- NOTE | ~2018-06-17 | HEMODYNAMI ---
PATIENT:RUTHIE PAUL MEDICAL RECORD: [id number] : 64 LOC[id number] ADMISSION DATE: 06/17/18 Generatedon:06/18/20189:30 Patient name: RUTHIE PAUL Patient #: [id number] : 1960 Date of study: 06/18/2018 Page: Of Hemodynamic Procedure Report Patient Data Patient Demographics Procedure consent was obtained First Name: RUTHIE Gender: Female Last Name: HUMBERTO : 1960 [facility] Initial: LEVI Age: 57 year(s) Patient #: [id number] Race: SSN: [id number] Additional ID: [id number] Contact details Address: [place] [address] State: [place] City: [place] Zip code: [address] Past Medical History Allergies Allergen Reaction Date Comments Reported Other 01/02/2016 metoclopramide hcl, zolpidem allergy tartrate,pcn,ambien,doxycyclin,vancomycin,macrobid . Other 06/01/2017 See chart allergy Other 06/04/2018 Morphine, Niacin, Zolpidem tartrate, erythromycin allergy base, metoclopramide HCL, PCN, EGG, nitrofurantoin , Other 06/18/2018 MORPHINE, NIACIN, AMBIEN, SULFA, ERYTHROMYCIN BASE , allergy NEGLAN, PCNS, MACROBID, EGG Admission Admission Data Admission Date: 06/17/2018 Admission Time: 16:21 Room #: D.2114 Lab Results Lab Result Date: 06/18/2018 Lab Result Time: 0:00 Biochemistry Name Units Result Min Max BUN mg/dl 11 --(-*--)-- 7 18 Creatinine mg/dl 0.8 --(-*--)-- 0.6 1.3 CBC Name Units Result Min Max Hemoglobin g/dl 14.5 --(*---)-- 13.5 17.5 Procedure Procedure Types Cath Procedure Diagnostic Procedure [facility] w/Coronaries Procedure Description Procedure Date Procedure Date: 06/18/2018 Procedure Start Time: 9:22 Procedure End Time: 9:27 Procedure Staff Name Function Juan Diego Rubi MD Performing Physician Henrique Sotomayor RT Monitor Yue Mchugh RT Scrub Aaron Gaspar RN Nurse Willow Fowler RN Medical Services Assistant Procedure Data Cath Procedure Fluoroscopy Diagnostic fluoroscopy Total fluoroscopy Time: 0.8 time: 0.8 min min Diagnostic fluoroscopy Total fluoroscopy dose: dose: 24.23 mGy 24.23 mGy Contrast Material Contrast Material Type Amount (ml) Isovue 300 32 Entry Location Entry Primary Successful Side Size Upsize Upsize Entry Closure Doss ccessful Closure Location (Fr) 1 (Fr) 2 (Fr) Remarks Device Remarks Radial Right 6 Fr Mechanical artery Short Compression Procedure Complications No complications Procedure Medications Medication Administration Route Dosage 0.9% NaCl I.V. 100 ml/hr Oxygen etCO2 Nasal cannula 2 l/min Lidocaine 2% added to field 20 Heparin Flush Bag added to field 2 bags (1000units/500ml NS) Radial Cocktail added to field 1 syringe (Verapomil 2mg/Nitro 400mcg/Heparin 1500units) Versed I.V. 3 mg Fentanyl I.V. 75 mcg Hemodynamics Rest Pre Cath Intra NCS Post Cath Vital Signs Time Heart Resp SPO2 etCO2 NIBP Rhythm Pain Sedation Rate (ipm) (%) (mmHg) (mmHg) Status Level (bpm) 9:11:36 74 13 96 28.6 124/72(94) NSR 0 (11) 10(A) , No pain 9:15:48 76 16 98 37.6 113/73(97) NSR 0 (11) 10(A) , No pain 9:19:55 77 15 97 40.6 105/68(82) NSR 0 (11) 10(A) , No pain 9:24:03 93 14 97 37.6 90/55(68) NSR 0 (11) 10(A) , No pain Medications Time Medication Route Dose Verified Delivered Reason Notes Ef fectiveness by by 9:10:47 0.9% NaCl I.V. 100 Juan Diego Munguiaa used for ml/hr Greyson Fowler scales inspector 9:10:54 Oxygen etCO2 2 l/min Juan Diego Munguiaa used for Nasal Greyson Fowler procedure cannula RN 9:11:00 Lidocaine 2% added 20ml Juan Diego Aaron for local to vial Greyson Gaspar RN anesthetic field 9:11:13 Heparin Flush added 2 bags Juan Diego Juan Diego used for Bag to Greyson Rubi MD procedure (1000units/500ml field NS) 9:11:24 Radial Cocktail added 1 Juan Diego Juan Diego used for (Verapomil to syringe Greyson Rubi MD procedure 2mg/Nitro field 400mcg/Heparin 1500units) 9:22:06 Versed I.V. 3 mg Juan Diego Daugherty for Greyson Fowler sedation RN 9:22:17 Fentanyl I.V. 75 mcg Juan Diego Daugherty for Greyson Fowler sedation airline attendant Log Time Note 8:32:30 Diagnostic Cath Status : Elective 8:33:43 Juan Diego Rubi MD sent for patient. Start room use. 8:33:48 Time tracking: Regular hours (M-F 7:00 - 5:00) 8:33:53 Plan of Care:Hemodynamics will remain stable., Cardiac rhythm will remain stable., Comfort level will be maintained., Respiratory function will remain adequate., Patient/ family verbilizes understanding of procedure., Procedure tolerated without complication., Recovers from procedure without complications.. 8:49:24 Lab Result : BUN 11 mg/dl 8:49:24 Lab Result : Creatinine 0.8 mg/dl 8:49:24 Lab Result : Hemoglobin 14.5 g/dl 8:49:27 Lab results completed and on chart. 9:00:51 Patient received from PCU to CCL 3 Alert and oriented. Tansferred to table in Supine position. 9:00:53 Warm blankets applied, and yeni hugger turned on for patient comfort. 9:00:53 Correct patient and procedure confirmed by team. 9:00:54 Signed procedure consent form obtained from patient. 9:00:55 ECG and BP/O2 sat monitors applied to patient. 9:08:16 H&P Date Dictated: 06/17/2018 Within 30 days and on chart.. 9:08:18 Pre-procedure instructions explained to patient. 9:08:19 Pre-op teaching completed and patient verbalized understanding. 9:08:20 Family unavailable. 9:08:22 Patient NPO since Midnight. 9:09:07 Patient allergic to Other allergyMORPHINE, NIACIN, AMBIEN, SULFA, ERYTHROMYCIN BASE, NEGLAN, PCNS, MACROBID, EGG 9:09:09 Is patient on blood thinner?Yes 9:09:11 ACC The patient was administered the following blood thiners within the last 24 hours: ACCPlavix 9:09:13 Patient diabetic? No. 9:09:36 Patient not . Patient has had hysterectomy. 9:09:40 Previous problem with sedation/anesthesia? No ? 9:09:41 Snore? No 9:09:41 Sleep apnea? No 9:09:43 Deviated septum? No 9:09:43 Opens mouth fully? Yes 9:09:44 Sticks out tongue? Yes 9:09:51 Airway obstruction? Yes EMPHYSEMA 9:09:56 Dentures? No ? 9:10:00 Modified Julio's test Ulnar < 7 seconds 9:10:02 Patient pain scale 0/10 ?. 9:10:15 IV patent on arrival in right antecubital with 0.9% NaCl at O. 9:10:19 Right Radial & Right Groin area was prepped with chlora-prep and draped in sterile fashion 9:10:20 Alarms reviewed by R. N. 9:10:20 Sharps counted by scrub and verified by R.N. 9:10:23 Use device set Radial Dx or PCI 9:10:24 ACIST Syringe (92772) opened to sterile field. 9:10:26 ACIST Hand Control (76468) opened to sterile field. 9:10:27 ACIST Manifold (54697) opened to sterile field. 9:10:28 Bag Decanter (2001S) opened to sterile field. 9:10:30 Vital chart was started 9:10:31 Tegaderm 4 x 4 (1626W) opened to sterile field. 9:10:32 Medline Cath Pack ([id number]) opened to sterile field. 9:10:33 DIAGNOSTIC WIRE .035 260cm J wire (141493) opened to sterile field. 9:10:33 MBrace Wrist Support ([id number]) opened to sterile field. 9:10:34 SHEATH 6FR Slender (801060) opened to sterile field. 9:10:47 0.9% NaCl 100 ml/hr I.V. was administered by Willow Fowler RN; used for procedure; 9:10:54 Oxygen 2 l/min etCO2 Nasal cannula was administered by Willow Fowler RN; used for procedure; 9:11:00 Lidocaine 2% 20ml vial added to field was administered by Aaron Gaspar RN; for local anesthetic; 9::13 Heparin Flush Bag (1000units/500ml NS) 2 bags added to field was administered by Juan Diego Rubi MD; used for procedure; ::24 Radial Cocktail (Verapomil 2mg/Nitro 400mcg/Heparin 1500units) 1 syringe added to field was administered by Juan Diego Rubi MD; used for procedure; 9::04 Physician arrived 9::05 --------ALL STOP TIME OUT------ 9::05 Final Timeout: patient, procedure, and site verified with staff and physician. All members of the team are in agreement. 9:21:07 Right Radial & Right Groin site verified by team. 9:21:12 Fire Safety Assessment: A--An alcohol-based skin anteseptic being used preoperatively., C--Open oxygen or nitrous oxide is being used., D--An ESU, laser, or fiber-optic light is being used. 9:21:16 Physical assessment completed. ASA score P 2 - A patient with mild systemic disease as per Juan Diego Rubi MD. 9:21:19 Sedation plan: IV Moderate Sedation Medication:Versed, Fentanyl 9:22:05 Zero performed for pressure channel P1 9:22:06 Versed 3 mg I.V. was administered by Willow Fowler RN; for sedation; ::15 Procedure started. 9::15 Full Disclosure recording started 9::17 Fentanyl 75 mcg I.V. was administered by Willow Fowler RN; for sedation; 9::49 Local anesthetic to right radial artery with Lidocaine 2% by Juan Diego Rubi MD.INITIAL ACCESS ONLY 9::57 A 6 Fr Short sheath was inserted into the Right Radial artery 9:23:15 LV angiography performed. 9:23:17 LV gram done using GARCIA 9:23:41 EF : 60 % 9::57 LCA angiography performed. 9:24:36 RCA angiography performed. 9::39 Catheter removed. 9:24:48 Contrast amount:Isovue 300 32ml. 9:24:55 Sheath removed intact; hemostasis achieved with Mechanical Compression to the Right Radial artery. 9:24:57 Procedure ended.(Physican Out) 9:25:07 Fluoroscopy time 00.80 minutes. 9:25:15 Fluoroscopy dose: 24.23 mGy 9:25:15 Flurop Dose total: 24.23 9:25:17 Sharps counted by scrub and verified by R.N. 9:25:19 TR band inflated with 13cc of air. 9:25:21 Insertion/operative site no bleeding no hematoma. 9:25:32 Post right radial artery:stable 9:25:34 Post Procedure Pulses reassessed and unchanged 9:25:54 Post procedure rhythm: sinus rhythm 9:25:55 Post procedure instruction explained to patient.Patient verbalizes understanding. 9:25:57 Procedure and supply charges have been captured, reviewed, submitted and are correct. 9:26:29 TR BAND Standard ([id number]) opened to sterile field. 9:27:09 Procedure Complication : No complications 9:27:12 Vital chart was stopped 9:27:12 See physician's report for complete and final results. 9:27:14 Report given to PCU. 9:27:17 Patient transfered to PCU with Bed. 9:27:22 Procedure ended. 9:27:22 Full Disclosure recording stopped 9:27:25 End room use (Document Last) Device Usage Item Name Manufacture Quantity Catalog Hospital Part Current Minimal Lot# / Number Charge Number Stock Stock Serial# Code ACIST Acist 1 93122 329513 935148 884340 20 Syringe Medical (56268) Systems Inc ACIST Hand Acist 1 03476 270965 405730 138007 5 Control Medical (68530) Systems Inc ACIST Acist 1 47717 017732 246712 184353 5 Manifold Medical (54472) Systems Inc Bag Microtek 1 700496 52799 261398 5 Decanter Medical Inc. () Tegaderm 4 3M 1 1626W 722043 806378 068099 5 x 4 (1626W) Medline Medline 1 [id number] 965794 08840 762880 5 Cath Pack ([id number]) DIAGNOSTIC St Minh 1 935112 809589 455974 359933 30 WIRE .035 260cm J wire (153696) MBrace Advanced 1 140-0250-00 063939 95987 554845 5 Wrist Vascular Support Dynamics ([id number]) SHEATH 6FR Terumo 1 [id number] 587778 704782 416801 5 Slender (83-1590) TR BAND Terumo 1 [id number] 107006 839014 399762 40 Standard ([id number]) Signature Audit [place] Stage Time Signature Unsigned Intra-Procedure 06/18/2018 Henrique Sotomayor RT(R) 9:30:09 AM Signatures Monitor : Henrique Sotomayor RT Signature : Date : Time : [place] [id number]
[~2018-06-17 09:44] MED LIST changes: +NEURONTIN 300300 MG PO
[2018-06-17 10:08] LABS: BASOPHILS 1.1 % (0-2); EOSINOPHILS 4.4 % (0-7); HEMATOCRIT 44.2 % (36.0-48.0); HEMOGLOBIN 14.5 g/dL (12-16); IMMATURE GRANULOCYTES 0.3 % (0-5); LYMPHOCYTES 35.4 % (15-50); MCHC 32.8 g/dL (31.0-37.0); MCV 88.4 fL (80.0-100.0); MEAN PLATELET VOLUME 10.4 fL (7.4-10.4); MONOCYTES 9.1 % (2-11); NEUTROPHILS 49.7 % (40-80); PLATELET COUNT 149 10x3/uL (130-400); RDW 13.9 % (11.5-14.5); WBC 3.6 10x3/uL (4.8-10.8)
[2018-06-17 10:21] LABS: ALBUMIN 3.5 g/dL (3.4-5.0); ALKALINE PHOSPHATASE 331 U/L (46-116); ALT (SGPT) 311 U/L (10-68); BILIRUBIN - TOTAL 0.95 mg/dL (0.2-1.3); CALC OSMOLALITY 282 mosm/kg (275-300); CALCIUM 8.7 mg/dL (8.5-10.1); CARBON DIOXIDE 26.2 mmol/L (21.0-32.0); CHLORIDE - SERUM 105 mmol/L (98-107); CREATININE - SERUM 0.8 mg/dL (0.6-1.3); GLUCOSE 111 mg/dL (74-106); POTASSIUM - SERUM 3.8 mmol/L (3.5-5.1); PROTEIN - SERUM 7.5 g/dL (6.4-8.2); SODIUM 142 mmol/L (136-145); UREA NITROGEN 11 mg/dL (7-18); eGFR NON AFRICAN AMERICAN 79 mL/min (90-120)
[2018-06-17 10:36] LABS: CKMB 0.5 U/L (0.0-3.6); CREATINE KINASE 23 UL (21-215)
[2018-06-17 10:40] LABS: TROPONIN-I 0.067 ng/mL (0.000-0.060)
[2018-06-17 11:15] VITALS: BP 132/81
[2018-06-17 12:34] VITALS: BP 120/69
--- NOTE | 2018-06-17 13:26 | NUR ---
PT RESTING SEMI FOWLERS. RESPIRATIONS EVEN AND UNLABORED. AWAITING SECOND LAB DRAW. WILL CONTINUE TO MONITOR.
--- NOTE | 2018-06-17 16:00 | NUR ---
O2 PLACED ON PT VIA NASAL CANULA PER EDP.
--- NOTE | 2018-06-17 16:06 | NUR ---
ORDERED NITRO PATCH TO L CHEST PER EDP.
[2018-06-17 16:11] LABS: AMYLASE - SERUM 118 U/L (25-115)
[2018-06-17 16:12] LABS: LIPASE 1599 U/L (73-393)
[2018-06-17 19:02] VITALS: BP 112/77; Ht 180.3 cm; Wt 71.7 kg
--- NOTE | 2018-06-17 19:24 | NUR ---
RESUMED CARE OF PT, LYING IN BED RESPIRATIONS EVEN AND UNLABORED ON ROOM AIR. FAMILY AT BEDSIDE, CALL LIGHT IN REACH. 90 SR ON TELEMETRY. SEE NURSE ASSESSMENT. PLAN OF CARE DISCUSSED.
[2018-06-17 20:00] VITALS: BP 110/79
[2018-06-17 21:30] LABS: CKMB 0.3 U/L (0.0-3.6); CREATINE KINASE 38 UL (21-215); TROPONIN-I 0.058 ng/mL (0.000-0.060)
[2018-06-18] VITALS (7 sets, daily range): BP systolic 91–109; BP diastolic 49–67
[2018-06-18 03:49] LABS: CKMB 0.2 U/L (0.0-3.6); CREATINE KINASE 18 UL (21-215); TROPONIN-I 0.058 ng/mL (0.000-0.060)
--- NOTE | 2018-06-18 04:00 | NUR ---
BAY STOCKER AT BEDSIDE TO OBTAIN VITALS, CALL LIGHT IN REACH. WILL CONTINUE WITH PLAN OF CARE.
--- NOTE | 2018-06-18 07:10 | NUR ---
ASSESSMENT DONE. DENIES NEEDS.
--- NOTE | 2018-06-18 08:59 | NUR ---
TO FIELD SERVICE COORDINATOR PER BED
--- NOTE | 2018-06-18 10:38 | NUR ---
RESP UL ON . RIGHT WRIST STABLE WITH TR BAND INTACT. TELMETRY SR 64. WILL CONT. PLAN OF CARE.
--- NOTE | 2018-06-18 11:24 | NUR ---
AGREE WITH ASSESMENT REVIEWED.
--- NOTE | 2018-06-18 17:00 | NUR ---
WITHOUT CHANGES OR DISTRESS NOTED AT THIS TIME.
--- NOTE | 2018-06-18 21:36 | NUR ---
INITIAL ROUNDS COMPLETED AT 1900 HRS. PT STATED PAIN LEVEL 5/10 AT THAT TIME. TR BAND IN PLACE. NO BLEEDING NOTED. 1CC REMOVED FROM TR BAND AT 1920 HRS. NO BLEEDING NOTED. ADDITIONAL 2CC REMOVED FORM TR BAND AT 1999 HRS. NO BLEEDING OR SWELLING NOTED. ASSESSMENT COMPLETED AT 2034 HRS. VSS. IV TO RAC WITH NS AT 150CC/HR. IV PATENT. LUNGS DIMINISHED IN BASES BILAT. O2 2LNC. HYPOACTIVE BOWEL SOUNDS NOTED IN ALL 4 QUDRANTS. REMAINDER 2CC REMOVED FORM TR BAND. NO BLEEDING OR SWELLING NOTED. COVERED WITH 2X2 AND OPSITE. NO CHANGE NOTED OVER NEXT 15 MINUTES. RECHECKED AT 2129 HRS AND SITE CLEAN, DRY AND INTACT. PT CURRENTLY WTCHING TV. SR UP X2, CALL LIGHT WITHIN REACH.
--- NOTE | 2018-06-18 23:53 | NUR ---
NO CHANGES TO R WRIST NOTED. STATES PAIN LEVEL NOW 5/10. SR UP X2, CALL LIGHT WITHIN REACH.
--- NOTE | 2018-06-19 02:25 | NUR ---
PT RESTING WITH EYES CLOSED. RESP EVEN AND REGULAR. SR UP X2, CALL LIGHT WITHIN REACH.
[2018-06-19 03:55] VITALS: BP 105/54
--- NOTE | 2018-06-19 04:13 | NUR ---
PT AWAKE; STATES PAIN NOW /10. CALL LIGHT WITHIN REACH.
[2018-06-19 05:15] LABS: BASOPHILS 0.2 % (0-2); EOSINOPHILS 3.6 % (0-7); HEMATOCRIT 35.6 % (36.0-48.0); HEMOGLOBIN 11.3 g/dL (12-16); LYMPHOCYTES 32.5 % (15-50); MCH 28.3 pg (26.0-34.0); MCHC 31.7 g/dL (31.0-37.0); MCV 89.2 fL (80.0-100.0); MEAN PLATELET VOLUME 10.3 fL (7.4-10.4); NEUTROPHILS 51.7 % (40-80); PLATELET COUNT 105 10x3/uL (130-400); RBC 3.99 10x6/uL (4.00-5.40); RDW 13.9 % (11.5-14.5); WBC 4.2 10x3/uL (4.8-10.8)
[2018-06-19 05:39] LABS: ALKALINE PHOSPHATASE 204 U/L (46-116); BILIRUBIN - DIRECT 0.16 mg/dL (0.00-0.30); BILIRUBIN - INDIRECT 0.34 mg/dL (0.00-1.00); CALCIUM 7.8 mg/dL (8.5-10.1); CARBON DIOXIDE 23.4 mmol/L (21.0-32.0); CHLORIDE - SERUM 109 mmol/L (98-107); CREATININE - SERUM 0.6 mg/dL (0.6-1.3); GLUCOSE 93 mg/dL (74-106); LIPASE 267 U/L (73-393); SODIUM 141 mmol/L (136-145); eGFR NON AFRICAN AMERICAN > 90 mL/min (90-120)
[2018-06-19 05:41] LABS: ALBUMIN 2.5 g/dL (3.4-5.0); ALT (SGPT) 103 U/L (10-68); CALC OSMOLALITY 278 mosm/kg (275-300); PROTEIN - SERUM 5.2 g/dL (6.4-8.2); UREA NITROGEN 7 mg/dL (7-18)
--- NOTE | 2018-06-19 07:23 | NUR ---
ROUNDING DONE WITH PATIENT COMPLAINING OF CHEST AND UPPER ABDOMINAL PAIN. ZOFRAN. ZOFRAN AND DILAUDID FOR DISCOMFORT. RIGHT AC PIV INFUSING WITH NS AT 125 CC/HR. ON ROOM AIR. HEART MONITOR SHOWING SB, HR 56. HAD JUST BEEN UP TO RESTROOM TO VOID. BANDAID SEEN TO RIGHT WRIST.
[2018-06-19 09:17] VITALS: BP 109/54
[2018-06-19 11:12] VITALS: BP 109/59
--- NOTE | 2018-06-19 11:13 | NUR ---
PATIENT TO COMPLAIN OF HEADACHE, WANTS TYLENOL. PATIENT IS IN WITH PANCREATITIS AND I TOLD HER THAT USUALLY TYLENOL IS NOT GIVEN. WILL CHECK WITH GI. LARGE ICE PACK MADE AND OFFERED.
--- NOTE | 2018-06-19 11:26 | NUR ---
KUNAL IN RADIOLOGY TO CALL AND TELL ME THAT PATIENT NEEDS TO BE NPO PAST MIDNIGHT FOR ULTRASOUND.
[2018-06-19 15:33] VITALS: BP 102/55
--- NOTE | 2018-06-19 16:27 | NUR ---
RESTING WITH EYES CLOSED, APPEARS PAIN FREE. RESP ARE EVEN.
[2018-06-19 20:10] VITALS: BP 103/60
--- NOTE | 2018-06-19 22:08 | NUR ---
INITIAL ROUNDS COMPLETED AT 1909 HRS. NO DISTRESS NOTED. ASSESSMENT COMPLETED AT 1944 HRS. VSS. SB PER CM HR 50. ALERT AND ORIENTED TO PERSON, PLACE AND TIME. IV TO RAC WITH NS AT 125CC/HR. IV PATENT. HYPOACTIVE BS NOTED. LUNGS ESSENTIALLY CTA. NUMEROUS SCABS NOTED TO BILAT FOREARMS. DILAUDID 1MG, ZOFRAN 4MG SIVP GIVEN FOR C/O CHEST AND ABD PAIN AT 2111 HRS. PT CURRENTLY RESTING WITH EYES CLOSED. RESP EVEN AND REGULAR. SR UP X2, CALL LIGHT WITHIN REACH.
[2018-06-19 23:55] VITALS: BP 125/67
[2018-06-20] VITALS (7 sets, daily range): BP systolic 120–133; BP diastolic 53–82
--- NOTE | 2018-06-20 00:10 | NUR ---
PT AWAKE; NO DISTRESS NOTED. CALL LIGHT WITHIN REACH.
--- NOTE | 2018-06-20 02:29 | NUR ---
PT STATES PAIN NOW 5/10. WILL CONTINUE TO MONITOR.
--- NOTE | 2018-06-20 04:57 | NUR ---
PT RESTING WITH EYES CLOSED. RESP EVEN AND REGULAR. SR UP X2, CALL LIGHT WITHIN REACH.
--- NOTE | 2018-06-20 05:41 | NUR ---
VSS THROUGHOUT NIGHT. SB PER CM. PT STATED DILAUDID AND ZOFRAN BROUGHT PAIN LEVEL DOWN TO 5/10. NPO ANIYAH AM CT OF ABD. NEEDS MET; WILL CONTINUE TO MONITOR.
[2018-06-20 06:03] LABS: BASOPHILS 0.5 % (0-2); HEMATOCRIT 32.9 % (36.0-48.0); HEMOGLOBIN 10.5 g/dL (12-16); LYMPHOCYTES 32.4 % (15-50); MCH 28.3 pg (26.0-34.0); MCHC 31.9 g/dL (31.0-37.0); MCV 88.7 fL (80.0-100.0); MEAN PLATELET VOLUME 10.9 fL (7.4-10.4); MONOCYTES 8.2 % (2-11); NEUTROPHILS 54.9 % (40-80); PLATELET COUNT 105 10x3/uL (130-400); RBC 3.71 10x6/uL (4.00-5.40); RDW 13.8 % (11.5-14.5); WBC 3.8 10x3/uL (4.8-10.8)
[2018-06-20 06:39] LABS: ALBUMIN 2.4 g/dL (3.4-5.0); ALKALINE PHOSPHATASE 177 U/L (46-116); BILIRUBIN - TOTAL 0.51 mg/dL (0.2-1.3); CALC OSMOLALITY 279 mosm/kg (275-300); CALCIUM 7.8 mg/dL (8.5-10.1); CHLORIDE - SERUM 110 mmol/L (98-107); CREATININE - SERUM 0.6 mg/dL (0.6-1.3); GLUCOSE 88 mg/dL (74-106); LIPASE 143 U/L (73-393); POTASSIUM - SERUM 3.6 mmol/L (3.5-5.1); PROTEIN - SERUM 5.4 g/dL (6.4-8.2); SODIUM 142 mmol/L (136-145); UREA NITROGEN 6 mg/dL (7-18); eGFR NON AFRICAN AMERICAN > 90 mL/min (90-120)
[2018-06-20 06:49] LABS: ALT (SGPT) 67 U/L (10-68)
--- NOTE | 2018-06-20 07:13 | NUR ---
ROUNDING DONE WITH PATIENT BEING NPO FOR ABDOMINAL ULTRASOUND THIS AM, THEN CLEAR LIQUIDS PAST THAT. ON HEART MONITOR SHOWING SB, HR 52. ROOM AIR. RIGHT AC PIV SEEN WITH NS INFUSING AT 125 CC/HR. ON EP, K+ IS 3.6. DILAUDID AND ZOFRAN WAS GIVEN LAST SHIFT.
--- NOTE | 2018-06-20 07:38 | NUR ---
PATIENT TO REFUSE SCD'S, UP AND DOWN TO RESTROOM. AMMONIA LEVEL IS 33 THIS AM AND RELAYED TO PATIENT AND SPOUSE. WILL ASK DOCTOR FOR MIRALAX PATIENT HAS NOT HAD A BM SINCE THURSDAY.
--- NOTE | 2018-06-20 08:33 | NUR ---
I ASKED PATIENT IF SHE WANTED A BATH AND LINEN CHANGE DONE (STATES THAT SHE HAS NOT HAD A LINEN CHANGE SINCE ADMIT) AND SHE REPLIED SHE WANTED TO WAIT UNTIL AFTER ULTRASOUND.
--- NOTE | 2018-06-20 08:52 | NUR ---
PATIENT IS STILL NPO FOR ULTRASOUND.
--- NOTE | 2018-06-20 10:27 | NUR ---
ULTRASOUND DONE. PATIENT TO REQUEST 2 JELLO'S, GIVEN. DOES NOT WANT ANYTHING ELSE AT THIS TIME.
--- NOTE | 2018-06-20 13:24 | NUR ---
BED LINENS CHANGED. PATIENT AMBULATED WITH THIS NURSE TO NURSE STATION AND BACK TO BED.
--- NOTE | 2018-06-20 14:39 | NUR ---
IV FLUIDS ARE CONVERTED TO SALINE LOCK.
--- NOTE | 2018-06-21 00:12 | NUR ---
INITIAL ROUNDS COMPLETED AT 1915 HRS. NO DISTRESS NOTED. ASESSMENT COMPLETED AT 1950 HRS. VSS. SB PER CM HR 50. IV TO RAC SL LUNGS DIMINISHED IN BASES BILAT. HYPOACTIVE BS NOTED IN ALL 4 QUADRANTS. NUMEROUS SORES/SCABS NOTED TO CHEST AND BILAT LOWER ARMS/WRISTS. DR CANTU NOTIFIED AT 1958 THAT DILAUDID IV DC'S PER PHARMACY. REORDERED BY DR CANTU. ZOFRAN 4MG/ DILAUDID 1MGSIVP GIVEN FOR C/O SCEST BURNING. PT CURRENTLY WATCHIONG TV. SR UP X2, CALL LIGHT WITHIN REACH.
--- NOTE | 2018-06-21 02:49 | NUR ---
PT RESTING WITH EYES CLOSED. RESP EVEN AND REGULAR. SR UP X2, CALL LIGHT WITHIN REACH.
[2018-06-21 03:43] VITALS: BP 118/64
--- NOTE | 2018-06-21 05:07 | NUR ---
PT RESTING WITH EYES CLOSED. RESP EVEN AND REGULAR. SR UP X2, CALL LIGHT WITHIN REACH.
[2018-06-21 08:21] VITALS: BP 120/64
--- NOTE | 2018-06-21 10:35 | NUR ---
PRE-OPS GIVEN BY LEARNING AND DEVELOPMENT MANAGER. TO GI LAB BY BED.
--- NOTE | 2018-06-21 11:44 | NUR ---
BACK FROM GI LAB. WILL CONT. PLAN OF CARE.
[2018-06-21 13:34] VITALS: BP 85/49
[2018-06-21 17:57] VITALS: BP 106/51
--- NOTE | 2018-06-21 21:01 | NUR ---
HS MEDS GIVEN WITH FRESH ICE WATER. PT DENIES NEEDS AT THIS TIME.
[2018-06-21 21:43] VITALS: BP 120/62
[2018-06-22 01:07] VITALS: BP 128/65
[2018-06-22 05:57] VITALS: BP 125/59
[2018-06-22 08:19] VITALS: BP 127/66
--- NOTE | 2018-06-22 10:47 | OP ---
PATIENT NAME: RUTHIE PAUL MEDICAL RECORD: [id number] :64 LOCATION:D.M2 D.2114 ADMISSION DATE:06/18/18 SURGEON: AKSHAT CRMU MD DATE OF OPERATION: 06/18/2018 PROCEDURES: 1. Left heart catheterization. 2. Selective coronary angiography. 3. Left ventriculogram. INDICATION: Chest pain compatible with angina. PROCEDURE IN DETAIL: After informed consent was obtained and after a detailed description of risks, benefits as well as alternative therapies, the patient elected to proceed with angiogram and heart catheterization. The right radial area was prepped and draped in normal sterile fashion. Right radial artery was cannulated via modified Seldinger technique with placement of 5-Citizen Of [place] sheath. All catheters exchanged through this sheath. FINDINGS: Left ventriculogram was performed in standard 30-degree GARCIA view, reveals good cardiac wall motion throughout all segments. Overall ejection fraction estimated 60%. SELECTIVE CORONARY ANGIOGRAPHY: 1. Left main is with no significant angiographic disease. 2. Left anterior descending has previously placed stents. These are widely patent with no significant restenosis or thrombosis, no disease elsewise throughout the LAD or its branches. 3. Left circumflex has previously placed stents. These are widely patent with no significant thrombosis or restenosis. No disease elsewhere throughout the circumflex or its branches. 4. Right coronary artery has moderate irregularities, but no flow-limiting stenosis. OVERALL IMPRESSION: Chest pain is noncardiac in etiology at this time, most likely it is secondary to her pancreatitis. No other cardiac workup treatment is necessary. TRANSINT:[id number] Voice Confirmation ID: [id number] DOCUMENT ID: [id number] AKSHAT CRUM MD at 1047 CC: [id number] DICTATION DATE: 06/18/1828 LIQUID FLAVOR COMPOUNDER: 06/18/18 0944 ADM IN [address] [place] [address]
[2018-06-22] MEDS ORDERED: CARAFATE1 G PO (11:26)
[2018-06-22] MEDS ORDERED: PROTONIX40 MG PO ×2 (11:27→11:29)
[2018-06-22 12:17] VITALS: BP 101/56
--- NOTE | 2018-06-22 12:49 | MORECARE ---
CASE MANAGEMENT DISCHARGE SUMMARY PATIENT: RUTHIE PAUL LEVI UNIT: [id number] ADM DATE: 06/18/18 AGE: 57 : 64 SEX: F ROOM/BED: D.2434 AUTHOR: CARYN PONCE PHYSICIAN: REFERRING PHYSICIAN: CARLOS A MARKS MD DATE OF SERVICE: 06/22/18 Discharge Plan Patient Name: RUTHIE PAUL Facility: [facility]:[place] : 1960 Planned Disposition: Home Anticipated Discharge Date: 06/22/18 Discharge Date: Expected LOS: 4 Initial Reviewer: [email or web address] Initial Review Date: 06/17/2018 Generated: 06/22/18 1:49 pm DCPIA - Discharge Planning Initial Assessment Updated by ABIEL: Nahid Huitron on 06/22/18 12:46 pm * Is the patient Alert and Oriented? Yes * How many steps to enter\exit or inside your home? 12 * PCP DR. ELIZABETH * Pharmacy [facility] * Preadmission Environment Home with Family * ADLs Independent * Equipment None * Other Equipment NO MEDICAL EQUIPMENT PROVIDER PREFERECE * List name and contact numbers for known caregivers / representatives who currently or will assist patient after discharge: BOSSMAN PAUL, SPOUSE, * Verbal permission to speak to the caregivers and representatives has been obtained from the patient. Yes * Community resources currently utilized None * Please name any agencies selected above. NONE * Additional services required to return to the preadmission environment? No * Can the patient safely return to the preadmission environment? Yes * Has this patient been hospitalized within the prior 30 days at any hospital? No Coverage Notice Reviewer: [email or web address] - Nahid Huitron Notice Issued Date-Time: 06/22/2018 11:55 Notice Type: IM Discharge Notice Notice Delivered To: Patient Relationship to Patient: Learning Facilitator Name: Delivery Method: HAND - Hand Delivered Mela Days: Prior Verbal Notification: Recipient Understood Notice: Yes Recipient Signature: Yes Med Rec Note Co-signed by Attending: Coverage Notice Comment: Patient Name: RUTHIE PAUL Page [phone] at 1249 All edits/amendments must be made on the electronic document DICTATION DATE: 06/22/18 1249 CRIMP SETTER: SHIRIN 06/22/18 1249 RPT#: [id number] DC DATE: STATUS: ADM IN [facility] [address] [place] [address] END OF REPORT
--- NOTE | 2018-06-22 12:57 | MORECARE ---
CASE MANAGEMENT DISCHARGE SUMMARY PATIENT: RUTHIE PALU LEVI UNIT: [id number] ADM DATE: 06/18/18 AGE: 57 : 64 SEX: F ROOM/BED: D.6560 AUTHOR: KRISDOC PHYSICIAN: REFERRING PHYSICIAN: CARLOS A MARKS MD DATE OF SERVICE: 06/22/18 Discharge Plan Patient Name: RUTHIE PAUL Facility: [facility]:[place] : 1960 Planned Disposition: Home Anticipated Discharge Date: 06/22/18 Discharge Date: Expected LOS: 4 Initial Reviewer: [email or web address] Initial Review Date: 06/17/2018 Generated: 06/22/18 1:56 pm Comments DCP- Discharge Planning Updated by [email or web address]: Nahid Huitron on 06/22/18 11:[address] Patient Name: RUTHIE PAUL Admission Status: ER Accout number: [id number] Admission Date: 06-18-2018 : 1960 Admission Diagnosis:CHEST PAIN, UNSPECIFIED Attending: CARLOS A MARKS Current LOS: 4 Anticipated DC Date: 06-22-2018 Planned Disposition: Home Primary Insurance: [facility] MEDICARE SOLUTIONS Discharge Planning Comments: CM MET WITH PT AND SPOUSE IN ROOM TO DISCUSS DISCHARGE PLANNING AND NEEDS. RUTHIE PAUL provided verbal consent to discuss current and ongoing needs with/in the presence of: SPOUSE, BOSSMAN. PT REPORTS LIVING AT HOME INDEPENDENTLY WITH SPOUSE. . PT HAS NO MEDICAL EQUIPMENT AND NO OUTSIDE SERVICES ASSISTING IN THE HOME. CM DISCUSSED AVAILABILITY OF HOME HEALTH, REHAB SERVICES AND MEDICAL EQUIPMENT. PT DENIES DISCHARGE NEEDS, REPORTS HER SPOUSE IS HERE TO PICK HER UP FOR DISCHARGE HOME. IMPORTANT MESSAGE FROM MEDICARE PROVIDED AND EXPLAINED. PT REPORTS THE DOCTOR TOLD HER SHE WOULD HAVE A KINDNEY DOCTOR CHECK HER PRIOR TO DISCHARGE. PT WANTS THIS TO HAPPEN. CM REVIEWED CHART AND INFORMED PT THAT BOTH DOCTORS SEEING HER HAVE ENTERED DISCHARGE ORDERS AND THAT CM WILL NOTIFY THE DRYWALL CONTRACTOR NURSE TO REVIEW CHART AND FOLLOW UP WITH THE DOCTORS TO DETERMINE IF THIS HAS BEEN MISSED OR WHAT OTHER ARRANGEMENTS ARE TO BE MADE. PT STATES UNDERSTANDING. CM NOTIFED DRYWALL CONTRACTOR NURSE OF PT'S CONCERNS. Ham Boner: Nahid Huitron DCPIA - Discharge Planning Initial Assessment Updated by [id number]: Nahid Huitron on 06/22/18 12:46 pm * Is the patient Alert and Oriented? Yes * How many steps to enter\exit or inside your home? 12 * PCP DR. ELIZABETH * Pharmacy [facility] * Preadmission Environment Home with Family * ADLs Independent * Equipment None * Other Equipment NO MEDICAL EQUIPMENT PROVIDER PREFERECE * List name and contact numbers for known caregivers / representatives who currently or will assist patient after discharge: BOSSMAN PAUL, SPOUSE, * Verbal permission to speak to the caregivers and representatives has been obtained from the patient. Yes * Community resources currently utilized None * Please name any agencies selected above. NONE * Additional services required to return to the preadmission environment? No * Can the patient safely return to the preadmission environment? Yes * Has this patient been hospitalized within the prior 30 days at any hospital? No Coverage Notice Reviewer: [email or web address] Heather Huitron Notice Issued Date-Time: 06/22/2018 11:55 Notice Type: IM Discharge Notice Notice Delivered To: Patient Relationship to Patient: Phlebotomist Medical Lab Assistant Name: Delivery Method: HAND - Hand Delivered Mela Days: Prior Verbal Notification: Recipient Understood Notice: Yes Recipient Signature: Yes Med Rec Note Co-signed by Attending: Coverage Notice Comment: Last DP export: 06/22/18 11:49 a Patient Name: RUTHIE PAUL Page [phone] at 1257 All edits/amendments must be made on the electronic document DICTATION DATE: 06/22/18 1256 EBD TEACHER: SHIRIN 06/22/18 1256 RPT#: [id number] DC DATE: STATUS: ADM IN [facility] [address] [place] [address] END OF REPORT
--- NOTE | 2018-06-22 14:04 | NUR ---
URINE SPECIMEN COLLECTED AND TAKEN TO LAB. WILL MONITOR.
--- NOTE | 2018-06-22 14:21 | NUR ---
SPOKE WITH BOTH DR. CRUM AND DR. CANTU VIA PHONE AND THEY BOTH ADVISED PT MAY DISCHARGE AND F/U RENAL ULTRASOUND REPORT WITH DR. NORIEGA/UROLOGY. APPT WITH DR. NORIEGA HAS BEEN MADE
--- NOTE | 2018-06-22 14:42 | NUR ---
IV AND TELEMETRY DCD. DC PLANS GIVE3N. UNDERSTANDING VOICED.
--- NOTE | 2018-06-22 15:14 | NUR ---
ESCORTED TO CAR BY W/C.
[2018-06-22 15:23] LABS: APPEARANCE CLEAR (CLEAR); BILIRUBIN NEGATIVE (NEGATIVE); COLOR YELLOW (YELLOW); GLUCOSE NEGATIVE (NEGATIVE); KETONE NEGATIVE (NEGATIVE); NITRITE NEGATIVE (NEGATIVE); PROTEIN NEGATIVE (NEGATIVE); UROBILINOGEN NORMAL (NORMAL)
[2018-06-22 15:24] LABS: RED CELLS - URINE OCC /hpf (0-5); WHITE CELLS - URINE OCC /hpf (0-5)
--- NOTE | 2018-06-23 09:11 | MORECARE ---
CASE MANAGEMENT DISCHARGE SUMMARY PATIENT: RUTHIE PAUL LEVI UNIT: [id number] ADM DATE: 06/18/18 AGE: 57 : 64 SEX: F ROOM/BED: D.2726 AUTHOR: CARYN PONCE PHYSICIAN: REFERRING PHYSICIAN: CARLOS A MARKS MD DATE OF SERVICE: 06/23/18 Discharge Plan Patient Name: RUTHIE PAUL Facility: [facility]:[place] : 1960 Planned Disposition: Home Anticipated Discharge Date: 06/22/18 Discharge Date: 06/22/2018 Expected LOS: 4 Initial Reviewer: [id number] Initial Review Date: 06/17/2018 Generated: 06/23/18 10:11 am Comments DCP- Discharge Planning Updated by [id number]: Nahid Huitron on 06/22/18 11:[address] Patient Name: RUTHIE PAUL Admission Status: ER Accout number: [id number] Admission Date: 06-18-2018 : 1960 Admission Diagnosis:CHEST PAIN, UNSPECIFIED Attending: CARLOSA MARKS Current LOS: 4 Anticipated DC Date: 06-22-2018 Planned Disposition: Home Primary Insurance: [facility] [employer] SOLUTIONS Discharge Planning Comments: CM MET WITH PT AND SPOUSE IN ROOM TO DISCUSS DISCHARGE PLANNING AND NEEDS. RUTHIE PAUL provided verbal consent to discuss current and ongoing needs with/in the presence of: SPOUSE, BOSSMAN. PT REPORTS LIVING AT HOME INDEPENDENTLY WITH SPOUSE. . PT HAS NO MEDICAL EQUIPMENT AND NO OUTSIDE SERVICES ASSISTING IN THE HOME. CM DISCUSSED AVAILABILITY OF HOME HEALTH, REHAB SERVICES AND MEDICAL EQUIPMENT. PT DENIES DISCHARGE NEEDS, REPORTS HER SPOUSE IS HERE TO PICK HER UP FOR DISCHARGE HOME. IMPORTANT MESSAGE FROM MEDICARE PROVIDED AND EXPLAINED. PT REPORTS THE DOCTOR TOLD HER SHE WOULD HAVE A KINDNEY DOCTOR CHECK HER PRIOR TO DISCHARGE. PT WANTS THIS TO HAPPEN. CM REVIEWED CHART AND INFORMED PT THAT BOTH DOCTORS SEEING HER HAVE ENTERED DISCHARGE ORDERS AND THAT CM WILL NOTIFY THE BUTTON BREAKER OPERATOR NURSE TO REVIEW CHART AND FOLLOW UP WITH THE DOCTORS TO DETERMINE IF THIS HAS BEEN MISSED OR WHAT OTHER ARRANGEMENTS ARE TO BE MADE. PT STATES UNDERSTANDING. CM NOTIFED BUTTON BREAKER OPERATOR NURSE OF PT'S CONCERNS. Paint Supervisor: Nahid Huitron DCPIA - Discharge Planning Initial Assessment Updated by [id number]: Nahid Huitron on 06/22/18 12:46 pm * Is the patient Alert and Oriented? Yes * How many steps to enter\exit or inside your home? 12 * PCP DR. ELIZABETH * Pharmacy [facility] * Preadmission Environment Home with Family * ADLs Independent * Equipment None * Other Equipment NO MEDICAL EQUIPMENT PROVIDER PREFERECE * List name and contact numbers for known caregivers / representatives who currently or will assist patient after discharge: BOSSMAN PAUL, SPOUSE, * Verbal permission to speak to the caregivers and representatives has been obtained from the patient. Yes * Community resources currently utilized None * Please name any agencies selected above. NONE * Additional services required to return to the preadmission environment? No * Can the patient safely return to the preadmission environment? Yes * Has this patient been hospitalized within the prior 30 days at any hospital? No Coverage Notice Reviewer: [id number] - Nahid Tomy Notice Issued Date-Time: 06/22/2018 11:55 Notice Type: IM Discharge Notice Notice Delivered To: Patient Relationship to Patient: Claim Benefit Specialist Name: Delivery Method: HAND - Hand Delivered Mela Days: Prior Verbal Notification: Recipient Understood Notice: Yes Recipient Signature: Yes Med Rec Note Co-signed by Attending: Coverage Notice Comment: Last DP export: 06/22/18 11:56 a Patient Name: RUTHIE PAUL Page [phone] at 0911 All edits/amendments must be made on the electronic document DICTATION DATE: 06/23/18909 MATH AND SCIENCE INSTRUCTOR: SHIRIN 06/23/18909 RPT#: [id number] DC DATE:06/22/18 STATUS: DIS IN [facility] [address] [place] [address] END OF REPORT
== END 2018-06-22 15:14 | disposition home or self-care (01) | DRG 378 ==
LOC: D.ER 09:44 → D.M2 16:21 → D.EDHOLD 16:21 → OBSVTIME 16:22 → D.M2 16:43
PROVIDERS: Emergency Medicine; Internal Medicine Gastroenterology; Internal Medicine Interventional Cardiology; ADMIT Internal Medicine Interventional Cardiology
PROC: B2151ZZ Fluoroscopy of Left Heart using Low Osmolar Contrast (ICD-10-PCS; 2018-06-18)
PROC: 4A023N7 Measurement of Cardiac Sampling and Pressure, Left Heart, Percutaneous Approach (ICD-10-PCS; 2018-06-18)
PROC: B2111ZZ Fluoroscopy of Multiple Coronary Arteries using Low Osmolar Contrast (ICD-10-PCS; principal; 2018-06-18 07:30)
PROC: 0DJ08ZZ Inspection of Upper Intestinal Tract, Via Natural or Artificial Opening Endoscopic (ICD-10-PCS; 2018-06-21)
DX: K29.71 Gastritis, unspecified, with bleeding (principal); K86.1 Other chronic pancreatitis; N13.30 Unspecified hydronephrosis; I85.00 Esophageal varices without bleeding; K74.60 Unspecified cirrhosis of liver; I10 Essential (primary) hypertension; E78.5 Hyperlipidemia, unspecified; K21.0 Gastro-esophageal reflux disease with esophagitis

== ENCOUNTER → 2018-07-26 13:49 | Outpatient (CLI) | payer MEDICARE, OTHER ==
[2018-06-17 19:02] VITALS: BMI 20.2
[~2018-07-26 13:49] MED LIST changes: +CARAFATE1 G PO; +PROTONIX40 MG PO
[2018-07-30 20:07] LABS: OVA + PARASITE EXAM Final report (())
== END | disposition home or self-care (01) ==
LOC: D.LAB 13:49
PROVIDERS: ATTEND Family Medicine Adult Medicine
DX: R19.7 Diarrhea, unspecified (principal)

== ENCOUNTER 2018-08-03 07:55 | Day surgery (SDC) | payer MEDICARE, OTHER ==
[2018-08-02 14:13] LABS: HEMATOCRIT 40.7 % (36.0-48.0); HEMOGLOBIN 13.1 g/dL (12-16); MCH 28.2 pg (26.0-34.0); MCHC 32.2 g/dL (31.0-37.0); MCV 87.5 fL (80.0-100.0); MEAN PLATELET VOLUME 10.2 fL (7.4-10.4); RBC 4.65 10x6/uL (4.00-5.40); RDW 13.6 % (11.5-14.5); WBC 4.9 10x3/uL (4.8-10.8)
[~2018-08-03] VITALS: Ht 180.3 cm; Wt 68.0 kg
[~2018-08-03 07:55] MED LIST changes: +UROGESIC BLUE PO
[2018-08-03 08:46] VITALS: BP 117/71; Ht 180.3 cm; Wt 68.0 kg
--- NOTE | 2018-08-03 13:33 | NUR ---
PT VOIDED UNABLE TO MEASURE, LARGE AMT. PINK IN COLOR
--- NOTE | 2018-08-03 13:51 | NUR ---
IV REMOVED PT TOLERATING LIQUIDS WELL
--- NOTE | 2018-08-03 17:45 | OP ---
PATIENT NAME: RUTHIE PAUL MEDICAL RECORD: [id number] :64 LOCATION:D.OPS ADMISSION DATE: SURGEON: CALVIN NORIEGA MD DATE OF OPERATION: 08/03/2018 SURGEON: Calvin Noriega MD ANESTHESIA: TIVA by Juanis Gilman CRNA. DIAGNOSES: Interstitial cystitis, urge urinary incontinence, not responsive to medications. PROCEDURES: Cystoscopy, hydrodistention of the bladder, intravesical Botox injection 100 units, intravesical Rimso instillation 50 mL. FINDINGS: Diffuse bladder inflammation with no bladder tumors seen. Single ureteral orifices bilaterally. BLOOD LOSS: None. CLINICAL HISTORY: This is a 57-year-old female, who previously had intravesical Rimso instillation in 2017 for interstitial cystitis. Recently, she has developed again ongoing left lower quadrant and suprapubic tenderness with urinary urgency every 20 minutes. She has nocturia times 5-6 and she has urge urinary incontinence. In the past, she has not responded to oral medications. She is quite symptomatic and she wishes to have everything done to treat the interstitial cystitis. Therefore, she comes for hydrodistention, Botox injection, and Rimso instillation. SHE IS ALLERGIC TO AMBIEN, CEFTIN, MORPHINE, NIACIN, PENICILLIN, SULFA, ERYTHROMYCIN, REGLAN, AND MACROBID. She was given Levaquin IV adjudication specialist to the OR. DESCRIPTION OF PROCEDURE: The patient was given IV sedation. She was placed into the lithotomy position and prepped and draped. A 21-Malagasy cystoscope with 30-degree lens was used for visualization. The bladder shows diffuse inflammation. As I distended the bladder to 500 mL volume and held it there for about 2-3 minutes petechial hemorrhages which we called glomerulations develops. We then injected the Botox in 10 different locations. At each location, 1 mL of Botox solution, which contains 10 units of Botox dissolved in it was injected. The ureteral orifices in the trigonal area were spared for the Botox injection. Once this was done, the bladder was fully emptied through the cystoscope sheath and then the scope was removed. We then inserted a 16-Malagasy red rubber catheter. Through the lumen of the red rubber catheter, 50 mL of Rimso solution was instilled into the bladder. The catheter was then removed, leaving the solution in the bladder. The patient will hold the Rimso in the bladder for 15 minutes and then void it out. I will see her in followup in 2 weeks' time. TRANSINT:[id number] Voice Confirmation ID: [id number] DOCUMENT ID: [id number] OPERATIVE REPORT [id number] RUTHIE PAUL ROBERT S MD at 1745 CC: [id number] DICTATION DATE: 08/03/18 1315 FOOT ROENTGENOLOGIST: 08/03/18 1358 [facility] 08/03/[address] [address]
== END 2018-08-03 14:47 | disposition home or self-care (01) ==
LOC: D.OPS 07:55 → D.PAN 13:50 → D.OPS 13:50
PROVIDERS: Anesthesiology; ATTEND Urology
DX: N30.10 Interstitial cystitis (chronic) without hematuria (principal); N39.41 Urge incontinence; Z88.1 Allergy status to other antibiotic agents; Z88.5 Allergy status to narcotic agent; Z88.0 Allergy status to penicillin; Z88.2 Allergy status to sulfonamides; Z88.8 Allergy status to other drugs, medicaments and biological substances; Z01.812 Encounter for preprocedural laboratory examination

== ENCOUNTER → 2018-08-16 13:30 | Outpatient (CLI) | payer MEDICARE, OTHER ==
[2018-08-03 08:46] VITALS: BMI 20.9
== END | disposition home or self-care (01) ==
LOC: D.LABREF 13:30
PROVIDERS: ATTEND Urology
DX: R31.9 Hematuria, unspecified (principal); D72.829 Elevated white blood cell count, unspecified

== ENCOUNTER 2018-10-26 13:28 | Inpatient (IN) | payer MEDICARE, OTHER ==
[~2018-10-26] VITALS: Ht 180.3 cm; Wt 70.3 kg
[2018-10-26] MEDS ORDERED: NEXIUM20 MG PO (13:48)
[2018-10-26] MEDS ORDERED: ZANTAC300 MG PO (13:48)
[2018-10-26] MEDS ORDERED: LIORESAL 10 MG10 MG PO (13:49)
[2018-10-26 14:14] LABS: BASOPHILS 0.4 % (0-2); EOSINOPHILS 4.2 % (0-7); HEMATOCRIT 40.1 % (36.0-48.0); HEMOGLOBIN 13.2 g/dL (12-16); IMMATURE GRANULOCYTES 0.2 % (0-5); LYMPHOCYTES 30.3 % (15-50); MCH 28.4 pg (26.0-34.0); MCHC 32.9 g/dL (31.0-37.0); MCV 86.4 fL (80.0-100.0); MEAN PLATELET VOLUME 9.7 fL (7.4-10.4); MONOCYTES 6.5 % (2-11); NEUTROPHILS 58.4 % (40-80); PLATELET COUNT 133 10x3/uL (130-400); RBC 4.64 10x6/uL (4.00-5.40); RDW 14.7 % (11.5-14.5); WBC 5.2 10x3/uL (4.8-10.8)
[2018-10-26 14:27] LABS: ALBUMIN 3.4 g/dL (3.4-5.0); ALKALINE PHOSPHATASE 228 U/L (46-116); ALT (SGPT) 272 U/L (10-68); BILIRUBIN - TOTAL 0.74 mg/dL (0.2-1.3); CALC OSMOLALITY 283 mosm/kg (275-300); CALCIUM 8.8 mg/dL (8.5-10.1); CARBON DIOXIDE 27.3 mmol/L (21.0-32.0); CHLORIDE - SERUM 106 mmol/L (98-107); CREATININE - SERUM 0.6 mg/dL (0.6-1.3); GLUCOSE 97 mg/dL (74-106); POTASSIUM - SERUM 3.8 mmol/L (3.5-5.1); PROTEIN - SERUM 7.2 g/dL (6.4-8.2); SODIUM 143 mmol/L (136-145); UREA NITROGEN 9 mg/dL (7-18); eGFR NON AFRICAN AMERICAN > 90 mL/min (90-120)
[2018-10-26 14:31] LABS: AMYLASE - SERUM 74 U/L (25-115); LIPASE 230 U/L (73-393); TROPONIN-I < 0.017 ng/mL (0.000-0.060)
--- NOTE | 2018-10-26 14:53 | NUR ---
DR. PAULA NOTIFIED AND REVIEWED PT'S BEHAVIOR AND ASSESSMENT RESULTS. PT IS A LOW RISK PER DR. PAULA. DR. PAULA STATED TO GIVE RESOURCES TO PT AT TIME OF DISCHARGE. NO FURTHER ORDERS AT THIS TIME. RESOURCES REVIEWED WITH PT AND SHE VERBALIZED UNDERSTANDING.
[2018-10-26 16:51] LABS: APPEARANCE CLEAR (CLEAR); BILIRUBIN NEGATIVE (NEGATIVE); COLOR STRAW (YELLOW); GLUCOSE NEGATIVE (NEGATIVE); KETONE NEGATIVE (NEGATIVE); NITRITE NEGATIVE (NEGATIVE); PROTEIN NEGATIVE (NEGATIVE); UROBILINOGEN NORMAL (NORMAL)
[2018-10-26 16:53] LABS: BACTERIA FEW /hpf (NONE SEEN); RED CELLS - URINE 0-5 /hpf (0-5); WHITE CELLS - URINE RARE /hpf (0-5)
[2018-10-26 18:23] VITALS: BP 142/77
--- NOTE | 2018-10-26 19:01 | MORECARE ---
CASE MANAGEMENT DISCHARGE SUMMARY PATIENT: RUTHIE CÁRDENAS LEVI UNIT: [id number] ADM DATE: 10/26/18 AGE: 57 : 64 SEX: F ROOM/BED: D.2237 AUTHOR: KRIS,DOC PHYSICIAN: REFERRING PHYSICIAN: DORIS HOLLIS MD DATE OF SERVICE: 10/26/18 Discharge Plan Patient Name: RUTHIE CÁRDENAS Facility: [facility]:[place] : 1960 Planned Disposition: Home Anticipated Discharge Date: 10/28/18 Discharge Date: Expected LOS: 2 Initial Reviewer: [id number] Initial Review Date: 10/26/2018 Generated: 10/26/18 8:01 pm Comments DCP- Discharge Planning Updated by [email or web address]: Bhavna Morales on 10/26/18 6:[address] Patient Name: RUTHIE CÁRDENAS Admission Status: ER Accout number: [id number] Admission Date: 10-26-2018 : 1960 Admission Diagnosis: Attending: DORIS HOLLIS Current LOS: 1 Anticipated DC Date: 10-28-2018 Planned Disposition: Home Primary Insurance: [facility] MEDICARE SOLUTIONS Discharge Planning Comments: CM met with patient and her to complete initial dc planning assessment. CM educated patient on the CM role and verbal consent given by patient to complete assessment. CM verified patient's address, phone number, and emergency contact phone numbers. Patient lives at home with her and reports she is independent. At discharge patient plans to return home and feels this is a safe discharge. CM discussed availability of home health, rehab services, and medical equipment. Patient denied known discharge needs at this time. Patient reports her will transport her home at time of discharge. CM will continue to follow and will assist as needed with dc plans/needs. Electrical Fitter: Bhavna Morales RN, [facility] DCPIA - Discharge Planning Initial Assessment Updated by [email or web address]: Bhavna Morales on 10/26/18 6:59 pm * Is the patient Alert and Oriented? Yes * How many steps to enter\exit or inside your home? * PCP Dr. Villegas * Pharmacy [facility] * Preadmission Environment Home with Family * ADLs Independent * Equipment None * List name and contact numbers for known caregivers / representatives who currently or will assist patient after discharge: Calvin Cárdenas - spouse - [phone] * Verbal permission to speak to the caregivers and representatives has been obtained from the patient. Yes * Community resources currently utilized None * Additional services required to return to the preadmission environment? No * Can the patient safely return to the preadmission environment? Yes * Has this patient been hospitalized within the prior 30 days at any hospital? No Patient Name: RUTHIE CÁRDENAS Page [phone] at 1901 All edits/amendments must be made on the electronic document DICTATION DATE: 10/26/181899 ACCESS SPEC: SHIRIN 10/26/181899 RPT#: [id number] DC DATE: STATUS: ADM IN [facility] [address] [place] [address] END OF REPORT
[2018-10-26 21:07] VITALS: BP 137/68
[2018-10-27 01:00] VITALS: BP 141/81
--- NOTE | 2018-10-27 03:08 | NUR ---
REC'D IN BED C/O DRY HEAVES NO EMESIS. REQUESTING ORAL PHENERGAN TAKING AT HOME STATES JEANNIE DURHAM IS NOT WORKING. NOTIFIED SARY VIERA APN NEW ORDERS REC'D.WILL CONTINUE TO MONITOR FOR ANY CHGES. AND FOLLOW CURRENT PLAN OF CARE
[2018-10-27 05:02] VITALS: BP 115/68
[2018-10-27 06:28] LABS: BASOPHILS 0.3 % (0-2); EOSINOPHILS 0.6 % (0-7); HEMATOCRIT 34.4 % (36.0-48.0); HEMOGLOBIN 10.9 g/dL (12-16); IMMATURE GRANULOCYTES 0.3 % (0-5); MCH 27.9 pg (26.0-34.0); MCHC 31.7 g/dL (31.0-37.0); MCV 88.2 fL (80.0-100.0); MEAN PLATELET VOLUME 10.6 fL (7.4-10.4); MONOCYTES 6.7 % (2-11); NEUTROPHILS 67.1 % (40-80); PLATELET COUNT 113 10x3/uL (130-400)
--- NOTE | 2018-10-27 06:48 | NUR ---
I have reviewed this patient and I concur with the Shift Assessment completed by the Licensed Practical Nurse today this shift.
[2018-10-27 06:49] LABS: WBC 3.6 10x3/uL (4.8-10.8)
[2018-10-27 06:53] LABS: ALKALINE PHOSPHATASE 274 U/L (46-116); ALT (SGPT) 281 U/L (10-68); BILIRUBIN - TOTAL 0.63 mg/dL (0.2-1.3); CALC OSMOLALITY 280 mosm/kg (275-300); CALCIUM 8.1 mg/dL (8.5-10.1); CARBON DIOXIDE 26.3 mmol/L (21.0-32.0); CHLORIDE - SERUM 110 mmol/L (98-107); CHOL - HDL RATIO 2.3 ratio (2.3-4.1); CHOLESTEROL, TOTAL 182 mg/dL (0-200); CKMB 0.7 U/L (0.0-3.6); CREATINE KINASE 19 UL (21-215); CREATININE - SERUM 0.6 mg/dL (0.6-1.3); GLUCOSE 119 mg/dL (74-106); HDL CHOLESTEROL 78 mg/dL (32-96); LDL CHOLESTEROL 87 mg/dL (0-100); LDL-HDL RATIO 1.1 ratio (1.5-3.5); MAGNESIUM - SERUM 1.9 mg/dL (1.8-2.4); PHOSPHOROUS 4.5 mg/dL (2.5-4.9); POTASSIUM - SERUM 4.2 mmol/L (3.5-5.1); PROTEIN - SERUM 5.7 g/dL (6.4-8.2); SODIUM 141 mmol/L (136-145); TRIGLYCERIDE 87 mg/dL (30-200); TROPONIN-I < 0.017 ng/mL (0.000-0.060); UREA NITROGEN 11 mg/dL (7-18); eGFR NON AFRICAN AMERICAN > 90 mL/min (90-120)
[2018-10-27 06:54] LABS: ALBUMIN 2.5 g/dL (3.4-5.0)
[2018-10-27 06:58] LABS: APTT 28.3 SECONDS (22.8-39.4); INR 1.03 (0.85-1.17)
--- NOTE | 2018-10-27 08:00 | NUR ---
PATIENT CO PAIN A 7.5-8 ON A PAIN SCALE OF 0/10. SAYS SHE IS MILDLY SICK TO HER STOMACH. RECEIVED PAIN MEDICATION. CL IN REACH. WCTM.
[2018-10-27 09:10] VITALS: BP 127/69
[2018-10-27] MEDS ORDERED: RANOLAZINE 500 MG (12:59)
[2018-10-27 13:24] VITALS: BP 102/65
[2018-10-27 14:24] VITALS: Ht 180.3 cm; Wt 70.3 kg
[2018-10-27 17:43] VITALS: BP 106/66
[2018-10-27 20:00] VITALS: BP 121/66
--- NOTE | 2018-10-27 20:04 | NUR ---
REC'D. CHGE OF SHIFTIN BED STATES NAUSEA BETTER RATES RIGHT ABDOMINAL PAIN EIGHT ON 1-10 PAIN SCALE. WILL CONTINUE TO MONITOR FOR ANY CHGES AND FOLLOW CURRENT PLAN OF CARE REINFORCED NPO AT ND FOR MRI VOICES UNDERSTANDING
[2018-10-28] VITALS: BP 135/81
[2018-10-28 04:00] VITALS: BP 136/76
[2018-10-28 07:28] LABS: BASOPHILS 0.2 % (0-2); HEMATOCRIT 33.7 % (36.0-48.0); HEMOGLOBIN 10.7 g/dL (12-16); IMMATURE GRANULOCYTES 0.2 % (0-5); LYMPHOCYTES 30.9 % (15-50); MCH 28.4 pg (26.0-34.0); MCHC 31.8 g/dL (31.0-37.0); MCV 89.4 fL (80.0-100.0); MEAN PLATELET VOLUME 10.3 fL (7.4-10.4); MONOCYTES 7.4 % (2-11); NEUTROPHILS 58.3 % (40-80); PLATELET COUNT 102 10x3/uL (130-400); RBC 3.77 10x6/uL (4.00-5.40); RDW 15.1 % (11.5-14.5); WBC 4.3 10x3/uL (4.8-10.8)
--- NOTE | 2018-10-28 07:32 | NUR ---
I have reviewed this patient and I concur with the Shift Assessment completed by the Licensed Practical Nurse today this shift.
[2018-10-28 07:49] LABS: CALC OSMOLALITY 278 mosm/kg (275-300); CALCIUM 8.1 mg/dL (8.5-10.1); CHLORIDE - SERUM 108 mmol/L (98-107); CREATININE - SERUM 0.6 mg/dL (0.6-1.3); GLUCOSE 91 mg/dL (74-106); MAGNESIUM - SERUM 1.7 mg/dL (1.8-2.4); PHOSPHOROUS 3.5 mg/dL (2.5-4.9); POTASSIUM - SERUM 3.8 mmol/L (3.5-5.1); SODIUM 141 mmol/L (136-145); eGFR NON AFRICAN AMERICAN > 90 mL/min (90-120)
[2018-10-28 07:52] LABS: UREA NITROGEN 6 mg/dL (7-18)
--- NOTE | 2018-10-28 08:00 | NUR ---
PATIENT SAYS SHE IS A 4/10 ON THE PAIN SCALE. CL IN REACH. NO NEEDS AT THIS TIME
[2018-10-28 08:47] VITALS: BP 144/78
[2018-10-28 12:13] LABS: % SATURATION 22 % (15-55); IRON 84 ug/dl (35-150); TOTAL IRON BIND CAPACITY 379 ug/dl (260-445); UNSAT IRON BIND CAPACITY 295 ug/dl (150-375)
[2018-10-28 12:43] LABS: ALBUMIN 2.7 g/dL (3.4-5.0); BILIRUBIN - DIRECT 0.17 mg/dL (0.00-0.30); BILIRUBIN - INDIRECT 0.52 mg/dL (0.00-1.00); BILIRUBIN - TOTAL 0.69 mg/dL (0.2-1.3); PROTEIN - SERUM 5.6 g/dL (6.4-8.2)
[2018-10-28 14:10] VITALS: BP 119/64
[2018-10-28 16:03] VITALS: BP 118/71
[2018-10-28 20:00] VITALS: BP 139/69
--- NOTE | 2018-10-28 20:00 | NUR ---
ALERT RESTING IN BED, REPORTS HAD EPISODE OF DIARRHEA AND NOW ABD HURTING AGAIN, BUT PAIN MEDS HELPED, SEE SHIFT ASSESSMENT, CALL LIGHT IN REACH
[2018-10-29] VITALS: BP 92/64
[2018-10-29 04:00] VITALS: BP 148/30
[2018-10-29 06:44] LABS: ALBUMIN 2.5 g/dL (3.4-5.0); ALKALINE PHOSPHATASE 245 U/L (46-116); ALT (SGPT) 190 U/L (10-68); BILIRUBIN - TOTAL 1.45 mg/dL (0.2-1.3); CALCIUM 8.1 mg/dL (8.5-10.1); CARBON DIOXIDE 28.4 mmol/L (21.0-32.0); CHLORIDE - SERUM 108 mmol/L (98-107); CREATININE - SERUM 0.6 mg/dL (0.6-1.3); GLUCOSE 102 mg/dL (74-106); MAGNESIUM - SERUM 1.7 mg/dL (1.8-2.4); PHOSPHOROUS 3.6 mg/dL (2.5-4.9); POTASSIUM - SERUM 3.4 mmol/L (3.5-5.1); PROTEIN - SERUM 5.5 g/dL (6.4-8.2); SODIUM 144 mmol/L (136-145); eGFR NON AFRICAN AMERICAN > 90 mL/min (90-120)
[2018-10-29 06:45] LABS: CALC OSMOLALITY 283 mosm/kg (275-300); UREA NITROGEN 4 mg/dL (7-18)
[2018-10-29 06:56] LABS: BASOPHILS 0.3 % (0-2); EOSINOPHILS 3.3 % (0-7); HEMATOCRIT 32.4 % (36.0-48.0); HEMOGLOBIN 10.3 g/dL (12-16); LYMPHOCYTES 30.1 % (15-50); MCH 28.3 pg (26.0-34.0); MCHC 31.8 g/dL (31.0-37.0); MEAN PLATELET VOLUME 10.7 fL (7.4-10.4); MONOCYTES 8.9 % (2-11); NEUTROPHILS 57.4 % (40-80); PLATELET COUNT 100 10x3/uL (130-400); RBC 3.64 10x6/uL (4.00-5.40); WBC 3.4 10x3/uL (4.8-10.8)
[2018-10-29 08:29] VITALS: BP 127/74
--- NOTE | 2018-10-29 11:07 | NUR ---
ELVIN CALLED WITH A PT HAVING A REACTION TO CONTRAST- PT WITH WHELPS NOTED TO NECK AND CHEST APROX 12 IN NUMBER- NO SOB OR OTHER S/S NOTED. BENADRYL 30 MG IV GIVEN SIVP. PT DENIES OTHER NEEDS. WILL INSTRUCT FLOOR NURSE TO MONITOR
--- NOTE | 2018-10-29 11:11 | NUR ---
PATIENT HAD A CONTRAST REACTION. SHE ASKED AFTER THE MRI ABD W/WO IF SHE SHOULD HAVE SOME ITCHING. WHEN ASKED WHERE SHE WAS ITCHING, SHE POINTED TO HER WRIST. SHE DEVELOPED MORE HIVES ON HER NECK AND CHEST. RADIOLOGIST DR RIVERA ORDER 30 ML BENADRYL I.V. SPECIALS NURSE, ZIGGY HERNANDEZ ADMINISTERED. JOSE RAMON OBRIEN, WAS NOTIFIED AT 1116, DR HOLLIS'S PHONE GAVE A BUSY SIGNAL.
--- NOTE | 2018-10-29 12:39 | NUR ---
NUTRITION F/U PT CURRENTLY ON CLEAR LIQUID DIET, AWAITING RESULTS OF MRI. WILL MONITOR DIET ADVANCEMENT ASSIST WITH NUTRITRION SUPPORT IF NEEDED. RD FOLLOWING
[2018-10-29 13:32] VITALS: BP 129/77
[2018-10-29 18:19] VITALS: BP 120/67
--- NOTE | 2018-10-29 19:15 | NUR ---
RECEIVED CARE FROM DAY NURSE. LYING IN BED WATCHING TV. NO NEEDS VOICED AT THIS TIME. CALL LIGHT AT SIDE. IV INFUSING TO PATENT LEFT HAND PER ORDER.
[2018-10-29 19:50] LABS: HEMATOCRIT 32.7 % (36.0-48.0); HEMOGLOBIN 10.2 g/dL (12-16)
[2018-10-29 21:13] VITALS: BP 120/68
[2018-10-30 01:15] VITALS: BP 121/60
[2018-10-30 01:52] LABS: HEMOGLOBIN 10.2 g/dL (12-16)
--- NOTE | 2018-10-30 03:00 | NUR ---
I have reviewed this patient and I concur with the Shift Assessment completed by the Licensed Practical Nurse today this shift.
[2018-10-30 05:10] VITALS: BP 125/66
[2018-10-30 07:04] LABS: BASOPHILS 0.3 % (0-2); EOSINOPHILS 5.5 % (0-7); HEMATOCRIT 32.7 % (36.0-48.0); HEMOGLOBIN 10.4 g/dL (12-16); LYMPHOCYTES 28.7 % (15-50); MCH 28.2 pg (26.0-34.0); MCHC 31.8 g/dL (31.0-37.0); MCV 88.6 fL (80.0-100.0); MEAN PLATELET VOLUME 10.2 fL (7.4-10.4); MONOCYTES 8.3 % (2-11); NEUTROPHILS 57.2 % (40-80); PLATELET COUNT 106 10x3/uL (130-400); RBC 3.69 10x6/uL (4.00-5.40); RDW 14.9 % (11.5-14.5); WBC 3.6 10x3/uL (4.8-10.8)
[2018-10-30 07:24] LABS: ALBUMIN 2.5 g/dL (3.4-5.0); ALKALINE PHOSPHATASE 246 U/L (46-116); BILIRUBIN - TOTAL 0.84 mg/dL (0.2-1.3); CALC OSMOLALITY 281 mosm/kg (275-300); CALCIUM 8.2 mg/dL (8.5-10.1); CARBON DIOXIDE 28.2 mmol/L (21.0-32.0); CHLORIDE - SERUM 108 mmol/L (98-107); CREATININE - SERUM 0.7 mg/dL (0.6-1.3); GLUCOSE 95 mg/dL (74-106); MAGNESIUM - SERUM 1.9 mg/dL (1.8-2.4); PHOSPHOROUS 3.4 mg/dL (2.5-4.9); PROTEIN - SERUM 5.5 g/dL (6.4-8.2); SODIUM 143 mmol/L (136-145); UREA NITROGEN 4 mg/dL (7-18); eGFR NON AFRICAN AMERICAN > 90 mL/min (90-120)
[2018-10-30 07:25] LABS: ALT (SGPT) 142 U/L (10-68)
[2018-10-30 08:45] VITALS: BP 128/90
[2018-10-30 09:22] LABS: HEMATOCRIT 33.4 % (36.0-48.0); HEMOGLOBIN 10.5 g/dL (12-16)
[2018-10-30 12:41] VITALS: BP 127/87
[2018-10-30 16:18] VITALS: BP 123/73
--- NOTE | 2018-10-30 18:49 | NUR ---
I have reviewed this patient and I concur with the Shift Assessment completed by the Licensed Practical Nurse today this shift.
--- NOTE | 2018-10-30 19:15 | NUR ---
RECEIVED CARE FROM DAY NURSE. SITTING IN BED. REPORTS NO NEEDS AT THIS TIME. CALL LIGHT AT SIDE. IV INFUSING PER ORDER TO LEFT HAND.
[2018-10-30 19:51] VITALS: BP 114/68
[2018-10-31] VITALS: BP 146/77
--- NOTE | 2018-10-31 03:00 | NUR ---
I have reviewed this patient and I concur with the Shift Assessment completed by the Licensed Practical Nurse today this shift.
--- NOTE | 2018-10-31 03:00 | NUR ---
I have reviewed this patient and I concur with the Shift Assessment completed by the Licensed Practical Nurse today this shift.
[2018-10-31 04:54] VITALS: BP 137/79
[2018-10-31 07:02] LABS: BASOPHILS 0.2 % (0-2); EOSINOPHILS 4.8 % (0-7); HEMATOCRIT 33.6 % (36.0-48.0); HEMOGLOBIN 10.7 g/dL (12-16); LYMPHOCYTES 24.4 % (15-50); MCH 28.5 pg (26.0-34.0); MCHC 31.8 g/dL (31.0-37.0); MCV 89.4 fL (80.0-100.0); MEAN PLATELET VOLUME 10.5 fL (7.4-10.4); MONOCYTES 8.6 % (2-11); PLATELET COUNT 107 10x3/uL (130-400); RBC 3.76 10x6/uL (4.00-5.40); RDW 14.9 % (11.5-14.5); WBC 4.4 10x3/uL (4.8-10.8)
[2018-10-31 07:22] LABS: ALBUMIN 2.5 g/dL (3.4-5.0); ALKALINE PHOSPHATASE 226 U/L (46-116); ALT (SGPT) 107 U/L (10-68); BILIRUBIN - TOTAL 0.78 mg/dL (0.2-1.3); CALC OSMOLALITY 277 mosm/kg (275-300); CALCIUM 8.2 mg/dL (8.5-10.1); CHLORIDE - SERUM 106 mmol/L (98-107); CREATININE - SERUM 0.7 mg/dL (0.6-1.3); GLUCOSE 95 mg/dL (74-106); MAGNESIUM - SERUM 1.8 mg/dL (1.8-2.4); PHOSPHOROUS 3.5 mg/dL (2.5-4.9); PROTEIN - SERUM 5.6 g/dL (6.4-8.2); SODIUM 141 mmol/L (136-145); UREA NITROGEN 4 mg/dL (7-18); eGFR NON AFRICAN AMERICAN > 90 mL/min (90-120)
[2018-10-31 07:47] VITALS: BP 138/78
[2018-10-31 13:06] VITALS: BP 109/64
[2018-10-31 17:10] VITALS: BP 114/62
--- NOTE | 2018-10-31 19:15 | NUR ---
RECEIVED CARE FROM DAY NURSE. SITTING UP IN BED WATCHING TV. REPORTS NO NEEDS AT THIS TIME. CALL LIGHT AT SIDE. IV INFUSING PER ORDER TO PATENT LEFT HAND.
[2018-10-31 20:32] VITALS: BP 122/62
[2018-11-01] VITALS (7 sets, daily range): BP systolic 92–136; BP diastolic 40–78
[2018-11-01 05:30] LABS: BASOPHILS 0.2 % (0-2); EOSINOPHILS 4.8 % (0-7); HEMATOCRIT 35.2 % (36.0-48.0); HEMOGLOBIN 11.1 g/dL (12-16); IMMATURE GRANULOCYTES 0.2 % (0-5); LYMPHOCYTES 28.4 % (15-50); MCH 28.2 pg (26.0-34.0); MCHC 31.5 g/dL (31.0-37.0); MCV 89.3 fL (80.0-100.0); MEAN PLATELET VOLUME 10.1 fL (7.4-10.4); MONOCYTES 7.7 % (2-11); NEUTROPHILS 58.7 % (40-80); PLATELET COUNT 110 10x3/uL (130-400); RBC 3.94 10x6/uL (4.00-5.40); RDW 14.9 % (11.5-14.5); WBC 4.6 10x3/uL (4.8-10.8)
[2018-11-01 06:08] LABS: ALBUMIN 2.6 g/dL (3.4-5.0); ALKALINE PHOSPHATASE 222 U/L (46-116); ALT (SGPT) 83 U/L (10-68); AMYLASE - SERUM 24 U/L (25-115); BILIRUBIN - TOTAL 0.95 mg/dL (0.2-1.3); CALC OSMOLALITY 276 mosm/kg (275-300); CALCIUM 8.4 mg/dL (8.5-10.1); CHLORIDE - SERUM 105 mmol/L (98-107); CREATININE - SERUM 0.8 mg/dL (0.6-1.3); GLUCOSE 107 mg/dL (74-106); LIPASE 115 U/L (73-393); MAGNESIUM - SERUM 2.1 mg/dL (1.8-2.4); PHOSPHOROUS 4.3 mg/dL (2.5-4.9); PROTEIN - SERUM 5.9 g/dL (6.4-8.2); SODIUM 140 mmol/L (136-145); eGFR NON AFRICAN AMERICAN 79 mL/min (90-120)
[2018-11-01 06:26] LABS: UREA NITROGEN 7 mg/dL (7-18)
--- NOTE | 2018-11-01 06:34 | NUR ---
I have reviewed this patient and I concur with the Shift Assessment completed by the Licensed Practical Nurse today this shift.
--- NOTE | 2018-11-01 07:26 | NUR ---
RCVD LYING IN BED WITH EYES OPEN AND TV ON, IV TO LEFT WRIST PATENT WITH MEDS INFUSING PER ORDERS. CONTINUES TO AMBULATE IN ROOM AD ROXIE. DENIES ANY PAIN AT THIS TIME. WILL CONTINUE TO MONITOR.
--- NOTE | 2018-11-01 08:51 | NUR ---
20 GAUGE IV STARTED IN RIGHT WRIST X 1 STICK, + FLASH, FLUSHED WITHOUT DIFFICULTY, SECURED WITH TAPE AND TEGADERM. NO REDNESS OR EDEMA NOTED AT SITE.
--- NOTE | 2018-11-01 10:14 | NUR ---
STAFF TIMES TWO CAME FOR PRE OP SERVICES. LEFT VIA BED WITH IV SALINE LOCK TO LEFT WRIST.
--- NOTE | 2018-11-01 11:27 | MORECARE ---
CASE MANAGEMENT DISCHARGE SUMMARY PATIENT: RUTHIE CÁRDENAS LEVI UNIT: [id number] ADM DATE: 10/26/18 AGE: 57 : 64 SEX: F ROOM/BED: D.2237 AUTHOR: CARYN PONCE PHYSICIAN: REFERRING PHYSICIAN: DORIS HOLLIS MD DATE OF SERVICE: 11/01/18 Discharge Plan Patient Name: RUTHIE CÁRDENAS Facility: [facility]:[place] : 1960 Planned Disposition: Home Anticipated Discharge Date: 10/28/18 Discharge Date: Expected LOS: 2 Initial Reviewer: [email or web address] Initial Review Date: 10/26/2018 Generated: 11/01/18 12:26 pm DCP- Discharge Planning Updated by [email or web address]: Bhavna Morales on 10/26/18 6:[address] Patient Name: RUTHIE CÁRDENAS Admission Status: ER Accout number: [id number] Admission Date: 10-26-2018 : 1960 Admission Diagnosis: Attending: DORIS HOLLIS Current LOS: 1 Anticipated DC Date: 10-28-2018 Planned Disposition: Home Primary Insurance: [facility] MEDICARE SOLUTIONS Discharge Planning Comments: CM met with patient and her to complete initial dc planning assessment. CM educated patient on the CM role and verbal consent given by patient to complete assessment. CM verified patient's address, phone number, and emergency contact phone numbers. Patient lives at home with her and reports she is independent. At discharge patient plans to return home and feels this is a safe discharge. CM discussed availability of home health, rehab services, and medical equipment. Patient denied known discharge needs at this time. Patient reports her will transport her home at time of discharge. CM will continue to follow and will assist as needed with dc plans/needs. Stockroom Selector: Bhavna Morales RN, [facility] DCPIA - Discharge Planning Initial Assessment Updated by [id number]: Bhavna Morales on 10/26/18 6:59 pm * Is the patient Alert and Oriented? Yes * How many steps to enter\exit or inside your home? * PCP Dr. Villegas * Pharmacy [facility] * Preadmission Environment Home with Family * ADLs Independent * Equipment None * List name and contact numbers for known caregivers / representatives who currently or will assist patient after discharge: Calvin Cárdenas - [facility] - [phone] * Verbal permission to speak to the caregivers and representatives has been obtained from the patient. Yes * Community resources currently utilized None * Additional services required to return to the preadmission environment? No * Can the patient safely return to the preadmission environment? Yes * Has this patient been hospitalized within the prior 30 days at any hospital? No External Providers External Provider: OTHER-OTHER Next Contact Date: Service Request Date: Service Type: Resolution: Reviewer: Comments: Last DP export: 10/26/18 6:01 pm Patient Name: RUTHIE CÁRDENAS Page 91663 at 1127 All edits/amendments must be made on the electronic document DICTATION DATE: 11/01/181125 ASSOCIATE CIVIL ENGINEER: SHIRIN 11/01/181125 RPT#: [id number] DC DATE: STATUS: ADM IN [facility] [address] [place] [address] END OF REPORT
--- NOTE | 2018-11-01 17:21 | NUR ---
REFUSED SCD'S AT THIS TIME DUE TO BEING UP AND DOWN TO BATHROOM MULTIPLE TIMES. WILL CONTINUE TO OBSERVE.
--- NOTE | 2018-11-01 20:15 | NUR ---
REC'D AT CHGE. OF SHIFT IN BED RATING RIGHT FLANK PAIN 8 ON 1-10 PAIN SCALE.SOME TENDERNESS TO TOUCH.WILL CONTINUE TO MONITOR FOR ANY CHGES. AND FOLLOW CURRENT PLAN OF CARE.
[2018-11-02 01:24] VITALS: BP 116/54
[2018-11-02 07:54] LABS: BASOPHILS 0.2 % (0-2); EOSINOPHILS 3.7 % (0-7); HEMATOCRIT 36.7 % (36.0-48.0); HEMOGLOBIN 11.8 g/dL (12-16); IMMATURE GRANULOCYTES 0.2 % (0-5); LYMPHOCYTES 24.4 % (15-50); MCH 28.6 pg (26.0-34.0); MCHC 32.2 g/dL (31.0-37.0); MCV 88.9 fL (80.0-100.0); MEAN PLATELET VOLUME 10.7 fL (7.4-10.4); MONOCYTES 8.3 % (2-11); NEUTROPHILS 63.2 % (40-80); PLATELET COUNT 123 10x3/uL (130-400); RBC 4.13 10x6/uL (4.00-5.40); RDW 14.7 % (11.5-14.5); WBC 4.1 10x3/uL (4.8-10.8)
[2018-11-02 08:05] LABS: ALKALINE PHOSPHATASE 279 U/L (46-116); ALT (SGPT) 73 U/L (10-68); BILIRUBIN - TOTAL 0.83 mg/dL (0.2-1.3); CALC OSMOLALITY 279 mosm/kg (275-300); CALCIUM 8.8 mg/dL (8.5-10.1); CARBON DIOXIDE 27.3 mmol/L (21.0-32.0); CHLORIDE - SERUM 105 mmol/L (98-107); CREATININE - SERUM 0.8 mg/dL (0.6-1.3); GLUCOSE 123 mg/dL (74-106); POTASSIUM - SERUM 4.2 mmol/L (3.5-5.1); PROTEIN - SERUM 6.5 g/dL (6.4-8.2); SODIUM 139 mmol/L (136-145); eGFR NON AFRICAN AMERICAN 79 mL/min (90-120)
[2018-11-02 08:08] LABS: UREA NITROGEN 14 mg/dL (7-18)
--- NOTE | 2018-11-02 08:30 | NUR ---
PT ALERT X 4. BREATH SOUNDS CLEAR BILAT. IV TO RIGHT WRIST, PATENT, DRESSING CDI. PT REPORTING PAIN OF 6/10, WILL MONITOR. TENDERNESS TO RLQ. BED LOW, CALL LIGHT IN REACH. NO OTHER NEEDS AT THIS TIME.
[2018-11-02 09:30] VITALS: BP 103/45
[2018-11-02 13:32] VITALS: BP 92/54
[2018-11-02 17:19] VITALS: BP 117/69
--- NOTE | 2018-11-02 21:35 | NUR ---
REC'D. CHGE. OF SHIFT IN BED REQUESTING IV PAIN MED.DENIES NAUSEA CONTINUES TO C/O RIGHT FLANK PAIN.RATING PAIN 8 ON 1-10 PAIN SCALE. WILL CONTINUE TO MONITOR FOR ANY CHGES.AND FOLLOW CURRENT PLAN OF CARE.
[2018-11-02 21:47] VITALS: BP 119/74
[2018-11-03 01:23] VITALS: BP 101/51
[2018-11-03 04:53] VITALS: BP 112/54
[2018-11-03 07:47] LABS: BASOPHILS 0.3 % (0-2); EOSINOPHILS 3.3 % (0-7); HEMATOCRIT 34.1 % (36.0-48.0); HEMOGLOBIN 10.7 g/dL (12-16); IMMATURE GRANULOCYTES 0.3 % (0-5); LYMPHOCYTES 34.3 % (15-50); MCH 28.2 pg (26.0-34.0); MCHC 31.4 g/dL (31.0-37.0); MCV 89.7 fL (80.0-100.0); MEAN PLATELET VOLUME 10.8 fL (7.4-10.4); MONOCYTES 10.9 % (2-11); NEUTROPHILS 50.9 % (40-80); PLATELET COUNT 117 10x3/uL (130-400); WBC 3.3 10x3/uL (4.8-10.8)
[2018-11-03 08:04] LABS: ALBUMIN 2.6 g/dL (3.4-5.0); ALKALINE PHOSPHATASE 225 U/L (46-116); BILIRUBIN - TOTAL 0.55 mg/dL (0.2-1.3); CALC OSMOLALITY 280 mosm/kg (275-300); CARBON DIOXIDE 25.8 mmol/L (21.0-32.0); CHLORIDE - SERUM 107 mmol/L (98-107); CREATININE - SERUM 0.6 mg/dL (0.6-1.3); GLUCOSE 89 mg/dL (74-106); PROTEIN - SERUM 5.9 g/dL (6.4-8.2); SODIUM 141 mmol/L (136-145); UREA NITROGEN 14 mg/dL (7-18); eGFR NON AFRICAN AMERICAN > 90 mL/min (90-120)
[2018-11-03 08:07] LABS: ALT (SGPT) 50 U/L (10-68)
--- NOTE | 2018-11-03 08:17 | NUR ---
I have reviewed this patient and I concur with the Shift Assessment completed by the Licensed Practical Nurse today this shift.
[2018-11-03 08:39] VITALS: BP 101/38
[2018-11-03 13:13] VITALS: BP 101/45
[2018-11-03] MEDS ORDERED: DIFLUCAN100 MG PO (15:07)
[2018-11-03] MEDS ORDERED: QUESTRAN LIG1 PACKET PO (15:07)
--- NOTE | 2018-11-03 15:07 | MORECARE ---
CASE MANAGEMENT DISCHARGE SUMMARY PATIENT: RUTHIE CÁRDENAS LEVI UNIT: [id number] ADM DATE: 10/26/18 AGE: 57 : 64 SEX: F ROOM/BED: D.2237 AUTHOR: KRIS,DOC PHYSICIAN: REFERRING PHYSICIAN: DORIS HOLLIS MD DATE OF SERVICE: 11/03/18 Discharge Plan Patient Name: RUTHIE CÁRDENAS Facility: [facility]:[place] : 1960 Planned Disposition: Home Anticipated Discharge Date: 10/28/18 Discharge Date: Expected LOS: 2 Initial Reviewer: [email or web address] Initial Review Date: 10/26/2018 Generated: 11/03/18 4:07 pm Comments DCP- Discharge Planning Updated by [email or web address]: Flaquita Dial on 11/03/18 2:[address] Received order for discharge. She states she is allergic to both Flagyl and Vancomycin. I asked her what they did to her when she took them and she states "if I'm allergic to an antibiotic, it gives me a massive headache and makes me itch." I informed Ne Gtz what she said. She states her will take her home today. She declines need for home health or DME. CM will continue to follow and assist with discharge planning/needs. DCP- Discharge Planning Updated by [email or web address]: Bhavna Morales on 10/26/18 6:[address] Patient Name: RUTHIE CÁRDENAS Admission Status: ER Accout number: [id number] Admission Date: 10-26-2018 : 1960 Admission Diagnosis: Attending: DORIS HOLLIS Current LOS: 1 Anticipated DC Date: 10-28-2018 Planned Disposition: Home Primary Insurance: [facility] MEDICARE SOLUTIONS Discharge Planning Comments: CM met with patient and her to complete initial dc planning assessment. CM educated patient on the CM role and verbal consent given by patient to complete assessment. CM verified patient's address, phone number, and emergency contact phone numbers. Patient lives at home with her and reports she is independent. At discharge patient plans to return home and feels this is a safe discharge. CM discussed availability of home health, rehab services, and medical equipment. Patient denied known discharge needs at this time. Patient reports her will transport her home at time of discharge. CM will continue to follow and will assist as needed with dc plans/needs. Fact Checker: Bhavna Morales RN, [facility] DCPIA - Discharge Planning Initial Assessment Updated by [email or web address]: Bhavna Morales on 10/26/18 6:59 pm * Is the patient Alert and Oriented? Yes * How many steps to enter\\exit or inside your home? * PCP Dr. Villegas * Pharmacy [facility] * Preadmission Environment Home with Family * ADLs Independent * Equipment None * List name and contact numbers for known caregivers / representatives who currently or will assist patient after discharge: Calvin Cárdenas - spouse - [phone] * Verbal permission to speak to the caregivers and representatives has been obtained from the patient. Yes * Community resources currently utilized None * Additional services required to return to the preadmission environment? No * Can the patient safely return to the preadmission environment? Yes * Has this patient been hospitalized within the prior 30 days at any hospital? No Coverage Notice Reviewer: [email or web address] Heather Dial Notice Issued Date-Time: 11/03/2018 14:57 Notice Type: IM Discharge Notice Notice Delivered To: Patient Relationship to Patient: Self Regulatory Affairs Assistant Name: Delivery Method: HAND - Hand Delivered Mela Days: Prior Verbal Notification: Recipient Understood Notice: Yes Recipient Signature: Yes Med Rec Note Co-signed by Attending: Coverage Notice Comment: IMM explained, signed, given, copy placed in MR Last DP export: 11/01/18 10:27 am Patient Name: RUTHIE CÁRDENAS Page [phone] at 1507 All edits/amendments must be made on the electronic document DICTATION DATE: 11/03/18 1507 MUTUEL TELLER: SHIRIN 11/03/18 1507 RPT#: [id number] DC DATE: STATUS: ADM IN [facility] [address] [place] [address] END OF REPORT
[2018-11-03] MEDS ORDERED: CARAFATE1 G PO (15:08)
[2018-11-03] MEDS ORDERED: FLAGYL500 MG PO (15:09)
[2018-11-03 17:36] VITALS: BP 106/52
--- NOTE | 2018-11-03 18:00 | NUR ---
PT PROVIDED D/C INSTRUCTIONS FOR DC. EDUCATED PT REGARDING FOLLOW UP WITH DR. ELIZABETH, ALSO PRESCRIPTIONS ESCRIBED TO PHARMACY. PT VOICES UNDERSTANDING. IV D/C'D FROM RIGHT WRIST CATH INTACT.
== END 2018-11-03 18:19 | disposition home or self-care (01) | DRG 392 ==
LOC: D.ER 13:28 → D.MS 17:12
PROVIDERS: Family Medicine; Internal Medicine Gastroenterology; ADMIT Internal Medicine Nephrology; ATTEND Internal Medicine Nephrology
PROC: 0DJ08ZZ Inspection of Upper Intestinal Tract, Via Natural or Artificial Opening Endoscopic (ICD-10-PCS; principal; 2018-11-01 10:02)
DX: K29.00 Acute gastritis without bleeding (principal); K86.1 Other chronic pancreatitis; I85.00 Esophageal varices without bleeding; I82.890 Acute embolism and thrombosis of other specified veins; R19.00 Intra-abdominal and pelvic swelling, mass and lump, unspecified site; I86.8 Varicose veins of other specified sites; K74.60 Unspecified cirrhosis of liver; G62.9 Polyneuropathy, unspecified; F41.8 Other specified anxiety disorders; I25.10 Atherosclerotic heart disease of native coronary artery without angina pectoris; K21.9 Gastro-esophageal reflux disease without esophagitis; J44.9 Chronic obstructive pulmonary disease, unspecified

== ENCOUNTER → 2019-01-27 08:09 | Outpatient (CLI) | payer MEDICARE, OTHER ==
[2018-10-27 14:24] VITALS: BMI 21.6
[~2019-01-27 08:09] MED LIST changes: +DIFLUCAN100 MG PO; +FLAGYL500 MG PO; +HYDROCODON-ACE1 EAC2 PO; +LIORESAL 10 MG10 MG PO; +NEXIUM20 MG PO; +QUESTRAN LIG1 PACKET PO; +RANOLAZINE 500 MG; +ZANTAC300 MG PO
== END | disposition home or self-care (01) ==
LOC: D.HCCARDIO 08:09
PROVIDERS: ATTEND Internal Medicine Cardiovascular Disease
DX: I25.10 Atherosclerotic heart disease of native coronary artery without angina pectoris (principal)

== ENCOUNTER → 2019-02-04 13:52 | Outpatient (CLI) | payer MEDICARE, OTHER ==
[2018-10-27 14:24] VITALS: BMI 21.6
== END | disposition home or self-care (01) ==
LOC: D.HCCECHO 13:52
PROVIDERS: ATTEND Internal Medicine Cardiovascular Disease
DX: R06.00 Dyspnea, unspecified (principal)

== ENCOUNTER 2019-03-27 18:21 | Emergency (ER) | payer MEDICARE, OTHER ==
[~2019-03-27] VITALS: Ht 180.3 cm; Wt 74.5 kg
[~2019-03-27 18:21] MED LIST changes: -HYDROCODON-ACE1 EAC2 PO
[2019-03-27 18:29] VITALS: Ht 180.3 cm; Wt 74.5 kg
[2019-03-27] MEDS ORDERED: HYDROCODON-ACE1 EAC2 PO (19:32)
[2019-03-27 20:31] VITALS: BP 122/73
== END 2019-03-27 20:31 | disposition home or self-care (01) ==
LOC: D.ER 18:21
DX: M79.18 Myalgia, other site (principal); T78.49XA Other allergy, initial encounter; Z86.73 Personal history of transient ischemic attack (TIA), and cerebral infarction without residual deficits; J44.9 Chronic obstructive pulmonary disease, unspecified; J45.909 Unspecified asthma, uncomplicated; K86.1 Other chronic pancreatitis

== ENCOUNTER → 2019-03-29 11:45 | Outpatient (CLI) | payer MEDICARE, OTHER ==
[2019-03-27 18:29] VITALS: BMI 22.9
[~2019-03-29 11:45] MED LIST changes: +HYDROCODON-ACE1 EAC2 PO
== END | disposition home or self-care (01) ==
LOC: D.LAB 11:45
PROVIDERS: ATTEND Internal Medicine Gastroenterology
DX: K86.1 Other chronic pancreatitis (principal)

== ENCOUNTER 2019-05-24 20:14 | Observation (INO) | payer MEDICARE, OTHER ==
[~2019-05-24] VITALS: Ht 180.3 cm; Wt 75.6 kg
--- NOTE | ~2019-05-24 | HEMODYNAMI ---
PATIENT:RUTHIE PAUL MEDICAL RECORD: [id number] : 64 LOCATION:[facility] D.2123 ADMISSION DATE: 05/24/19 Generatedon:05/25/201916:01 Patient name: RUTHIE PAUL Patient #: [id number] : 1960 Date of study: 05/25/2019 Page: Of Hemodynamic Procedure Report Patient Data Patient Demographics Procedure consent was obtained First Name: RUTHIE Gender: Female Last Name: HUMBERTO : 1960 Middle Initial: LEVI Age: 58 year(s) Patient #: [id number] Race: SSN: [id number] Additional ID: [id number] Contact details Address: [place] [address] State: [place] City: [place] Zip code: [address] Past Medical History Allergies Allergen Reaction Date Comments Reported Other 05/17/2019 metoclopramide hcl, zolpidem allergy tartrate,pcn,ambien,doxycyclin,vancomycin,macrobid . Other 06/01/2017 See chart allergy Other 06/04/2018 Morphine, Niacin, Zolpidem tartrate, erythromycin allergy base, metoclopramide HCL, PCN, EGG, nitrofurantoin , Other 06/18/2018 MORPHINE, NIACIN, AMBIEN, SULFA, ERYTHROMYCIN BASE , allergy NEGLAN, PCNS, MACROBID, EGG Admission Admission Data Admission Date: 05/24/2019 Admission Time: 21:16 Arrival Date: 05/24/2019 Arrival Time: 21:16 Admit Source: Other Insurance Payor: Medicare Room #: D.2123 [facility] #: [id number] Height (in.): 59.84 BSA: 1.71 (m2) Height (cm.): 152 BMI: 32.03 (kg/m2) Weight (lbs.): 163.14 Weight (kg.): 74 Lab Results Lab Result Date: 05/25/2019 Lab Result Time: 0:00 Biochemistry Name Units Result Min Max BUN mg/dl 24 --(----)-* 7 18 Creatinine mg/dl 1 --(--*-)-- 0.6 1.3 eGFR ml/min 69 *-(----)-- 90 120 NONAFRICAN CBC Name Units Result Min Max Hemoglobin g/dl 15.1 --(-*--)-- 13.5 17.5 Procedure Procedure Types Cath Procedure Diagnostic Procedure C [facility] w/Coronaries Procedure Description Procedure Date Procedure Date: 05/25/2019 Procedure Start Time: 15:50 Procedure End Time: 15:58 Procedure Staff Name Function Juan Diego Rubi MD Performing Physician Gregory Read RN Nurse Bonnie Rebollar RT Monitor Ayala Ramirez RT Monitor Marcus Moreira RN Nurse Procedure Data Cath Procedure Fluoroscopy Diagnostic fluoroscopy Total fluoroscopy Time: 0.5 time: 0.5 min min Diagnostic fluoroscopy Total fluoroscopy dose: 109 dose: 109 mGy mGy Contrast Material Contrast Material Type Amount (ml) Isovue 370 33 Entry Location Entry Primary Successful Side Size Upsize Upsize Entry Closure Succes sful Closure Location (Fr) 1 (Fr) 2 (Fr) Remarks Device Remarks Femoral Right 5 Fr Exoseal artery Estimated blood loss: 5 ml Diagnostic catheters Device Type Used For End Catheter Placement MULTIPACK Pigtail 5 Fr Procedure catheter MULTIPACK JL 4.0 5Fr Procedure catheter MULTIPACK 3DRC 5Fr Procedure catheter Procedure Complications No complications Procedure Medications Medication Administration Route Dosage 0.9% NaCl I.V. 100 ml/hr Oxygen etCO2 Nasal cannula 2 l/min Heparin Flush Bag added to field 2 bags (1000units/500ml NS) Lidocaine 2% added to field 20 Versed I.V. 1 mg Fentanyl I.V. 50 mcg Versed I.V. 0.5 mg Fentanyl I.V. 25 mcg Hemodynamics Rest BSA: 1.71 (m2) HGB: 15.1 (g/dl) O2 Consumption: Estimated: 167.1 (ml/min) O2 Con sumption indexed: Estimated:97.72 (ml/min/m) Heart Rate: 75 (bpm) Snapshots Pre Cath Intra NCS Post Cath Vital Signs Time Heart Resp SPO2 etCO2 NIBP (mmHg) Rhythm Pain Sedation Rate (ipm) (%) (mmHg) Status Level (bpm) 15:21:27 73 23 95 36.7 121/84(108) NSR 0 (11) 10(A) , No pain 15:25:29 81 20 88 24.7 114/84(97) NSR 0 (11) 10(A) , No pain 15:29:33 76 16 97 0 116/72(92) NSR 0 (11) 10(A) , No pain 15:33:34 74 18 89 39.7 127/82(121) NSR 0 (11) 10(A) , No pain 15:38:33 74 16 96 3.7 Measuring NSR 0 (11) 10(A) , No pain 15:38:36 74 20 95 36.8 120/84(95) NSR 0 (11) 10(A) , No pain 15:42:37 74 16 96 40.5 123/83(101) NSR 0 (11) 10(A) , No pain 15:46:43 75 16 96 39 117/75(96) NSR 0 (11) 10(A) , No pain 15:50:43 75 17 97 40.6 126/85(107) NSR 0 (11) 10(A) , No pain 15:54:45 81 15 98 4.5 130/88(109) NSR 0 (11) 9(A) , No pain 15:58:50 77 4 97 42 123/84(107) NSR 0 (11) 9(A) , No pain Medications Time Medication Route Dose Verified Delivered Reason Notes Effectiveness by by 15:22:57 0.9% NaCl I.V. 100 Gregory Gregory Per ml/hr Roro Read RN physician 15:23:04 Oxygen etCO2 2 Gregory Gregory for low 02 Nasal l/min Roro Read RN sats cannula 15:23:13 Heparin Flush added 2 Gregory Gregory used for Bag to bags Roro Read RN procedure (1000units/500ml field NS) 15:23:22 Lidocaine 2% added 20ml Gregory Gregory for local to vial Roro Read RN anesthetic field 15:50:58 Fentanyl I.V. 50 SAIDA SAIDA for mcg ZAIN GERBER RN sedation 15:50:58 Versed I.V. 1 mg SAIDA SAIDA for GERBER,RN GERBER,RN sedation 15:52:32 Versed I.V. 0.5 SAIDA SAIDA for mg ZAIN GERBER,ZAIN sedation 15:52:36 Fentanyl I.V. 25 SAIDA SAIDA for mcg ZAIN GERBER,RN sedation Procedure Log Time Note 15:07:24 Diagnostic Cath Status : Elective 15:08:44 Admit Source: Other 15:08:55 Arrival Date: 05/24/2019 9:16:00 PM 15:09:12 Insurance Payor : Medicare 15:09:22 Patient Height : 59.84 inches 15:09:30 Patient Weight : 163.14 lbs 15:10:50 Lab Result : eGFR NONAFRICAN 69 ml/min 15:10:50 Lab Result : Hemoglobin 15.1 g/dl 15:10:50 Lab Result : BUN 24 mg/dl 15:10:50 Lab Result : Creatinine 1 mg/dl 15:10:57 Sofía BEJARANO(R) sent for patient. Start room use. 15:10:58 Time tracking: Regular hours (M-F 7:00 - 5:00) 15:11:03 Plan of Care:Hemodynamics will remain stable., Cardiac rhythm will remain stable., Comfort level will be maintained., Respiratory function will remain adequate., Patient/ family verbilizes understanding of procedure., Procedure tolerated without complication., Recovers from procedure without complications.. 15:13:52 Patient received from Med II to [facility] 2 Alert and oriented. Tansferred to table in Supine position. 15:13:55 Signed procedure consent form obtained from patient. 15:13:56 Warm blankets applied, and yeni hugger turned on for patient comfort. 15:13:56 Correct patient and procedure confirmed by team. 15:13:56 ECG and BP/O2 sat monitors applied to patient. 15:14:51 Risk of Mortality: 1.5 15:14:54 Risk of blood transfusion: 0.9 15:14:58 Risk of FOREIGN: 6.5 15:15:02 2) 60-89 Mildly reduced kidney function, and other findings (as for stage 1) point to kidney disease. 15:15:07 Maximum allowable contrast dose (3.7 X eGFR X 0.75)191 ml. 15:16:48 Patient pain scale 5/10 ?. 15:20:17 Vital chart was started 15:20:33 H&P Date Dictated: 05/24/2019 Within 30 days and on chart.. 15:20:34 Pre-procedure instructions explained to patient. 15:20:35 Pre-op teaching completed and patient verbalized understanding. 15:20:38 Family in waiting room. 15:20:40 Patient NPO since Midnight. 15:20:42 Is the patient allergic to Iodine/contrast media? No. 15:20:45 Was the patient premedicated? Yes 15:20:56 Is patient on blood thinner?Yes 15:20:59 ACC The patient was administered the following blood thiners within the last 24 hours: ACCPlavix 15:21:02 Patient diabetic? No. 15:21:04 If diabetic: On Metformin? N/A 15:21:12 Patient not . Patient is over age 55. 15:21:14 ----Pre-sedation anethsthesia assessment.---- 15:21:18 Previous problem with sedation/anesthesia? No ? 15:21:50 Snore? No 15:21:52 Sleep apnea? No 15:21:55 Deviated septum? No 15:21:56 Opens mouth fully? Yes 15:21:57 Sticks out tongue? No 15:22:07 Airway obstruction? Yes emphyzema 15:22:22 Dentures? No ? 15:22:31 Right groin area was prepped with chlora-prep and draped in sterile fashion 15:22:33 Alarms reviewed by R. N. 15:22:33 Sharps counted by scrub and verified by R.N. 15:22:36 Lab results completed and on chart. 15:22:43 Stress Test: no; N/A ? 15:22:51 Pre procedure: right dorsailis pedis pulse 2+ Normal; easily identifiable; not easily obliterated 15:22:57 0.9% NaCl 100 ml/hr I.V. was administered by Gregory Read RN; Per physician; Verbal order read back and verified. 15:22:58 IV patent on arrival in left antecubital with 0.9% NaCl at KVO. 15:23:04 Baseline sample Acquired. 15:23:04 Oxygen 2 l/min etCO2 Nasal cannula was administered by Gregory Read RN; for low 02 sats; Verbal order read back and verified. 15:23:06 Full Disclosure recording started 15:23:09 Rhythm: sinus rhythm 15:23:13 Heparin Flush Bag (1000units/500ml NS) 2 bags added to field was administered by Gregory Read RN; used for procedure; Verbal order read back and verified. 15:23:22 Lidocaine 2% 20ml vial added to field was administered by Gregory Read RN; for local anesthetic; Verbal order read back and verified. 15:23:36 Use device set Femoral Dx 15:23:38 ACIST Syringe (06652) opened to sterile field. 15:23:39 Bag Decanter (2002S) opened to sterile field. 15:23:40 Medline Cath Pack ([id number]) opened to sterile field. 15:23:42 ACIST Hand Control (14430) opened to sterile field. 15:23:42 ACIST Manifold (28758) opened to sterile field. 15:23:46 DIAGNOSTIC Multipack 5Fr catheter set (WS4445) opened to sterile field. 15:23:52 EMERALD Guide Wire (260-516) opened to sterile field. 15:23:56 SHEATH 5FR Philmont (MUD379) opened to sterile field. 15:26:12 ACC Patient presents with Stable Angina CCS Anginal Class 2--Slight limitation of ordinary activity. 15:48:38 --------ALL STOP TIME OUT------ 15:48:42 Final Timeout: patient, procedure, and site verified with staff and physician. All members of the team are in agreement. 15:48:45 Right groin site verified by team. 15:48:48 Fire Safety Assessment: A--An alcohol-based skin anteseptic being used preoperatively., C--Open oxygen or nitrous oxide is being used., D--An ESU, laser, or fiber-optic light is being used. 15:48:51 Physical assessment completed. ASA score P 2 - A patient with mild systemic disease as per Juan Diego Rubi MD. 15:48:54 Sedation plan: IV Moderate Sedation Medication:Versed, Fentanyl 15:50:37 Procedure started. 15:50:46 Local anesthetic to right femoral artery with Lidocaine 2% by Juan Diego Rubi MD.INITIAL ACCESS ONLY 15:50:55 A 5 Fr sheath was inserted into the Right Femoral artery 15:50:58 Fentanyl 50 mcg I.V. was administered by SAIDA GERBER RN; for sedation; Verbal order read back and verified. 15:50:58 Versed 1 mg I.V. was administered by SAIDA GERBER RN; for sedation; Verbal order read back and verified. 15:51:02 A MULTIPACK Pigtail 5 Fr catheter was advanced over the wire and used for Procedure. 15:51:21 LV gram done using GARCIA 15:51:33 Injector settings: Ml/sec: 10, Volume: 20, 15:51:38 EF : 60 % 15:51:41 Catheter removed. 15:51:48 A MULTIPACK JL 4.0 5Fr catheter was advanced over the wire and used for Procedure. 15:52:14 LCA angiography performed. 15:52:32 Versed 0.5 mg I.V. was administered by SAIDA GERBER RN; for sedation; Verbal order read back and verified. 15:52:36 Fentanyl 25 mcg I.V. was administered by SAIDA GERBER RN; for sedation; Verbal order read back and verified. 15:52:41 Catheter removed. 15:52:48 A MULTIPACK 3DRC 5Fr catheter was advanced over the wire and used for Procedure. 15:53:19 RCA angiography performed. 15:53:37 Catheter removed. 15:53:43 EXOSEAL 5Fr (EX500) opened to sterile field. 15:53:51 Sheath removed intact; hemostasis achieved with Exoseal to the Right Femoral artery. 15:54:05 Procedure ended.(Physican Out) 15:54:17 Fluoroscopy time 00.50 minutes. 15:54:21 Fluoroscopy dose: 109 mGy 15:54:21 Flurop Dose total: 109 15:54:26 Dose Area Product 6263 mGy/cm. 15:54:30 Contrast amount:Isovue 370 33ml. 15:54:34 Maximum allowable dose exceeded? No. 15:54:36 Sharps counted by scrub and verified by R.N. 15:54:40 Post-op/insertion site Right Femoral artery dressed using a 4 x 4 and Tegaderm. 15:54:44 Post right femoral artery:stable, soft, clean and dry 15:54:46 Post Procedure Pulses reassessed and unchanged 15:54:49 Post procedure: right dorsailis pedis pulse 2+ Normal; easily identifiable; not easily obliterated. 15:54:52 Post-procedure physical assessment completed. ASA score P 2 - A patient with mild systemic disease as per Juan Diego Rubi MD. 15:54:55 Post procedure rhythm: unchanged. 15:54:58 Estimated blood loss: 5 ml 15:55:00 Post procedure instruction explained to patient.Patient verbalizes understanding. 15:55:01 Patient needs reinforcement of post procedure teaching. 15:55:50 Procedure and supply charges have been captured, reviewed, submitted and are correct. 15:55:55 Procedure Complication : No complications 15:56:05 [facility] Findings: mild to moderate CAD (<70%) 15:56:09 Operative report dictated upon procedure completion. 15:56:10 See physician's report for complete and final results. 15:56:42 Report given to [facility] II. 15:56:46 Patient transfered to [facility] II with Bed. 15:58:47 Vital chart was stopped 15:58:49 Procedure ended. 15:58:49 Full Disclosure recording stopped 15:58:59 End room use (Document Last) 16:00:10 End room use (Document Last) 16:00:37 End room use (Document Last) Device Usage Item Name Manufacture Quantity Catalog Hospital Part Current Minimal L ot# / Number Charge Number Stock Stock Serial# Code ACIST Acist 1 32192 865015 958359 643723 20 Syringe Medical (80249) Systems Inc Bag Microtek 1 268516 36076 999039 5 Decanter Medical Inc. () Medline Medline 1 [id number] 137308 75895 679397 5 Cath Pack ([id number]) ACIST Hand Acist 1 87472 918073 414521 033723 5 Control Medical (34849) Systems Inc ACIST Acist 1 91643 208365 924001 750909 5 Manifold Medical (41892) Systems Inc DIAGNOSTIC Cardinal 1 WP9177 860697 21198 077181 30 Multipack Health 5Fr catheter set (JC1307) EMERALD Cardinal 1 502-455 626584 084989 841430 5 Guide Wire Health (502-455) SHEATH 5FR Terumo 1 SKZ412 804441 261197 761505 5 Philmont (POE870) MULTIPACK Cardinal 1 660545 5 Pigtail 5 Health Fr catheter MULTIPACK Cardinal 1 872993 5 JL 4.0 5Fr Health catheter MULTIPACK Cardinal 1 042030 5 3DRC 5Fr Health catheter EXOSEAL 5Fr Cardinal 1 EX500 786258 321905 952446 10 (EX500) Health Signature Audit Mckinney Stage Time Signature Unsigned Intra-Procedure 05/25/2019 Bonnie Rebollar 4:00:10 PM RT(R) Intra-Procedure 05/25/2019 Marcus Moreira RN 4:00:37 PM Intra-Procedure 05/25/2019 Juan Diego Rubi 4:01:15 PM MD Signatures Performing Physician : Signature : Juan Diego Rubi MD Date : Time : Nurse : Gregory Read Signature : RN Date : Time : Monitor : Bonnie Rebollar Signature : RT Date : Time : Monitor : Ayala Ashley Signature : RT Date : Time : Nurse : Marcus Moreira RN Signature : Date : Time : [facility] [address] [place] [address]
[~2019-05-24 20:14] MED LIST changes: +FUROSEMIDE40 MG PO; +K-TAB10 MEQ PO; +LYRICA25 MG PO; +MAG-OXIDE400 MG PO
[2019-05-24 20:45] VITALS: BP 136/94
[2019-05-24 20:57] LABS: BASOPHILS 0.5 % (0-2); EOSINOPHILS 2.4 % (0-7); HEMATOCRIT 44.9 % (36.0-48.0); HEMOGLOBIN 15.1 g/dL (12-16); IMMATURE GRANULOCYTES 0.1 % (0-5); LYMPHOCYTES 38.1 % (15-50); MCH 29.7 pg (26.0-34.0); MCHC 33.6 g/dL (31.0-37.0); MCV 88.4 fL (80.0-100.0); MEAN PLATELET VOLUME 10.1 fL (7.4-10.4); MONOCYTES 9.1 % (2-11); NEUTROPHILS 49.8 % (40-80); RBC 5.08 10x6/uL (4.00-5.40); RDW 13.6 % (11.5-14.5); WBC 7.5 10x3/uL (4.8-10.8)
[2019-05-24 20:59] LABS: PLATELET COUNT 226 10x3/uL (130-400)
[2019-05-24 21:02] VITALS: BP 127/83
[2019-05-24 21:22] VITALS: BP 135/83
[2019-05-24 21:36] VITALS: BP 114/73
[2019-05-24 21:56] LABS: APTT 29.5 SECONDS (22.8-39.4); INR 0.91 (0.85-1.17); PROTIME 12.3 SECONDS (11.6-15.0)
[2019-05-24 21:57] LABS: CALC OSMOLALITY 281 mosm/kg (275-300); CALCIUM 8.2 mg/dL (8.5-10.1); CARBON DIOXIDE 30.9 mmol/L (21.0-32.0); CHLORIDE - SERUM 101 mmol/L (98-107); CREATININE - SERUM 0.9 mg/dL (0.6-1.3); GLUCOSE 129 mg/dL (74-106); POTASSIUM - SERUM 3.3 mmol/L (3.5-5.1); SODIUM 138 mmol/L (136-145); UREA NITROGEN 24 mg/dL (7-18); eGFR NON AFRICAN AMERICAN 69 mL/min (90-120)
[2019-05-24 22:12] LABS: ALBUMIN 3.4 g/dL (3.4-5.0); ALKALINE PHOSPHATASE 160 U/L (30-120); ALT (SGPT) 29 U/L (10-68); BILIRUBIN - TOTAL 0.58 mg/dL (0.2-1.3); CKMB 0.1 U/L (0.0-3.6); CREATINE KINASE 18 UL (21-215); MAGNESIUM - SERUM 2.2 mg/dL (1.8-2.4); PROTEIN - SERUM 7.2 g/dL (6.4-8.2)
[2019-05-24] MEDS ORDERED: PLAVIX75 MG PO (22:12)
[2019-05-24] MEDS ORDERED: TRAZODONE HCL150 MG PO (22:12)
--- NOTE | 2019-05-24 22:12 | NUR ---
PATIENT DEPARTED ERROR PATIENT AWAITING ADMISSION WHEN TELEMETRY BOX OBTAINED
[2019-05-24 22:13] LABS: TROPONIN-I < 0.017 ng/mL (0.000-0.060)
--- NOTE | 2019-05-24 22:30 | NUR ---
RECIEVED REPORT FROM LENY IN ER.
--- NOTE | 2019-05-24 22:33 | NUR ---
REPORT CALLED TO [facility] ON MED II.PATIENT TRANSPORTED TO FLOOR VIA WHEELCHAIR PER TECH EDI WITH L WRIST SALINE LOCK IN PLACE.
[2019-05-24 22:35] VITALS: BP 123/81
[2019-05-24] MEDS ORDERED: RANITIDINE HCL150 M1 PO (22:54)
[2019-05-24] MEDS ORDERED: HYDROCODON-ACE1 EAC7 PO (22:56)
[2019-05-24] MEDS ORDERED: PHENERGAN25 M1 PO (22:56)
[2019-05-25] VITALS (7 sets, daily range): BP systolic 91–129; BP diastolic 57–79; Ht 180.3 cm; Wt 75.6 kg
--- NOTE | 2019-05-25 01:15 | NUR ---
I have reviewed this patient and I concur with the Shift Assessment completed by the Licensed Practical Nurse today this shift.
--- NOTE | 2019-05-25 02:01 | NUR ---
RESTING WITH EYES CLOSED, RESPERATIONS EVEN, NO S/S DISTRESS NOTED.
[2019-05-25 05:00] LABS: BASOPHILS 0.5 % (0-2); EOSINOPHILS 3.2 % (0-7); HEMATOCRIT 40.9 % (36.0-48.0); LYMPHOCYTES 41.3 % (15-50); MCH 30.8 pg (26.0-34.0); MCHC 34.2 g/dL (31.0-37.0); MCV 89.9 fL (80.0-100.0); MONOCYTES 7.1 % (2-11); NEUTROPHILS 47.9 % (40-80); PLATELET COUNT 188 10x3/uL (130-400); RBC 4.55 10x6/uL (4.00-5.40); RDW 13.6 % (11.5-14.5)
[2019-05-25 05:49] LABS: ALBUMIN 3.4 g/dL (3.4-5.0); ALKALINE PHOSPHATASE 149 U/L (30-120); ALT (SGPT) 27 U/L (10-68); BILIRUBIN - TOTAL 0.75 mg/dL (0.2-1.3); CALC OSMOLALITY 284 mosm/kg (275-300); CALCIUM 8.2 mg/dL (8.5-10.1); CARBON DIOXIDE 32.1 mmol/L (21.0-32.0); CHLORIDE - SERUM 101 mmol/L (98-107); CKMB 0.4 U/L (0.0-3.6); CREATINE KINASE 17 UL (21-215); GLUCOSE 129 mg/dL (74-106); MAGNESIUM - SERUM 2.3 mg/dL (1.8-2.4); PHOSPHOROUS 4.4 mg/dL (2.5-4.9); POTASSIUM - SERUM 3.5 mmol/L (3.5-5.1); PROTEIN - SERUM 6.9 g/dL (6.4-8.2); SODIUM 140 mmol/L (136-145); TROPONIN-I < 0.017 ng/mL (0.000-0.060); UREA NITROGEN 24 mg/dL (7-18); eGFR NON AFRICAN AMERICAN 61 mL/min (90-120)
--- NOTE | 2019-05-25 10:03 | NUR ---
4MG OF ZOFRAN GIVEN FOR NAUSEA. PT DENIES ANY OTHER NEEDS.
[2019-05-25 10:21] LABS: CKMB 0.4 U/L (0.0-3.6); CREATINE KINASE 18 UL (21-215); TROPONIN-I < 0.017 ng/mL (0.000-0.060)
--- NOTE | 2019-05-25 12:12 | NUR ---
1MG OF DILAUDID GIVEN FOR PAIN LEVEL OF 7/10. PT DENIES ANY OTHER NEEDS AT THIS TIME. CALL LIGHT IN REACH, NAD NOTED,WILL CONTINUE TO MONITOR.
--- NOTE | 2019-05-25 14:19 | NUR ---
CALLED WILMAR IN [employer]USEMENT [employer]IDE MECHANIC AND INFORMED HIM THAT THERE ARE NO ORDERS FOR PRE-OP MEDS.
--- NOTE | 2019-05-25 15:25 | NUR ---
PT TO TEST DESIGNER.
[2019-05-25 15:31] LABS: CKMB 0.2 U/L (0.0-3.6); CREATINE KINASE 18 UL (21-215)
[2019-05-25 15:34] LABS: TROPONIN-I < 0.017 ng/mL (0.000-0.060)
--- NOTE | 2019-05-25 16:10 | NUR ---
RECEIVED PT BACK TO ROOM 2122. PT STILL DROWSY BUT EASILY AROUSES TO VOICE. VITAL SIGNS STABLE. RT GROIN DRESSING CDI, NO S/S OF BLEEDING OR HEMATOMA. PT DENIES ANY NEEDS AT THIS TIME. CALL LIGHT IN REACH, FAMILY AT BEDSIDE, NAD NOTED, WILL CONTINUE TO MONITOR.
[2019-05-26] VITALS: BP 91/54
[2019-05-26 04:00] VITALS: BP 94/94
--- NOTE | 2019-05-26 06:24 | NUR ---
I have reviewed this patient and I concur with the Shift Assessment completed by the Licensed Practical Nurse today this shift.
[2019-05-26 06:49] LABS: BASOPHILS 0.7 % (0-2); EOSINOPHILS 5.5 % (0-7); HEMATOCRIT 35.8 % (36.0-48.0); HEMOGLOBIN 11.4 g/dL (12-16); LYMPHOCYTES 34.2 % (15-50); MCH 28.9 pg (26.0-34.0); MCHC 31.8 g/dL (31.0-37.0); MCV 90.6 fL (80.0-100.0); MEAN PLATELET VOLUME 10.2 fL (7.4-10.4); MONOCYTES 8.4 % (2-11); NEUTROPHILS 51.2 % (40-80); PLATELET COUNT 155 10x3/uL (130-400); RBC 3.95 10x6/uL (4.00-5.40); RDW 13.5 % (11.5-14.5)
[2019-05-26 06:54] LABS: WBC 4.4 10x3/uL (4.8-10.8)
--- NOTE | 2019-05-26 07:17 | NUR ---
REPORT RECEIVED. WILL CONTINUE WITH POC. PT CURRENTLY LYING SEMI FOWLERS. CALL LIGHT W/I REACH. PT IS AAO AND UP AD ROXIE. RR EVEN AND UNLABORED ON . 04/28 NS INFUSING @50ML/HR VIA L.WRIST PIV. NO S/S OF DISTRESS NOTED. PT DENIES ANY NEEDS AT THIS TIME.
[2019-05-26 07:31] LABS: CALC OSMOLALITY 278 mosm/kg (275-300); CALCIUM 7.7 mg/dL (8.5-10.1); CARBON DIOXIDE 29.6 mmol/L (21.0-32.0); CHLORIDE - SERUM 105 mmol/L (98-107); CREATININE - SERUM 0.8 mg/dL (0.6-1.3); GLUCOSE 107 mg/dL (74-106); POTASSIUM - SERUM 3.7 mmol/L (3.5-5.1); SODIUM 139 mmol/L (136-145); eGFR NON AFRICAN AMERICAN 78 mL/min (90-120)
[2019-05-26 07:32] LABS: UREA NITROGEN 16 mg/dL (7-18)
[2019-05-26 09:08] VITALS: BP 105/63
[2019-05-26 12:51] VITALS: BP 91/48
--- NOTE | 2019-05-26 12:54 | CN ---
PATIENT NAME:RUTHIE CÁRDENAS MEDICAL RECORD: [id number] : 64 LOCATION:D.M2 D.2123 ADMIT DATE: 05/24/19 ACCOUNT: [id number] CONSULTING PHYSICIAN: AKSHAT CRUM MD REFERRING PHYSICIAN: DORIS HOLLIS MD DATE OF CONSULTATION: 05/25/2019 DIAGNOSES: 1. Angina. 2. Coronary artery disease. 3. Recent percutaneous transluminal coronary angioplasty stent. HISTORY OF PRESENT ILLNESS: Mrs. Cárdenas recently had PTCA stent to the LAD. When she was discharged home, she was having no pain. She has developed pain since then it has worsened. She is having quite severe pain today. It is just like that of her previous angina. Her EKG is with no ST-T changes. She continues to have the pain and it is not pleuritic. PHYSICAL EXAMINATION: CONSTITUTIONAL/GENERAL APPEARANCE: Well nourished, well developed, appears stated age. EYES: Lids and conjunctivae noninjected. No discharge. No pallor. ENT: Lips within normal limit. No cyanosis. No pallor. NECK: Carotid arteries, bilateral normal upstroke. No bruits. No thrills. No jugular venous pressure or distention. CERVICAL LYMPH NODES: Nontender. Nonenlarged. THYROID: Not enlarged. No nodules. CARDIOVASCULAR: Precordial exam, nondisplaced. No heaves or pericardial thrills. Rate and rhythm, regular. Heart sounds, normal S1, normal S2. No S3, no gallop, no rub. Systolic murmur, not heard. Diastolic murmur, not heard. RESPIRATORY: Respiratory effort, unlabored. Normal curvature. No thoracic deformity. No chest wall tenderness. Percussion, resonant. Auscultation, clear. No wheezes, no rales, no rhonchi. ABDOMEN: Soft, nondistended, nontender. No abdominal pain, no vomiting and normal appetite. MUSCULOSKELETAL: No joint tenderness, normal gait, normal tone. SKIN: Warm and dry. OVERALL IMPRESSION: Chest pain compatible with angina. At this time, not sure of the etiology of the pain. ____ acute coronary issue is to proceed with repeat coronary angiography. Further care depends upon the findings of the angiography. TRANSINT:[id number] Voice Confirmation ID: [id number] DOCUMENT ID: [id number] AKSHAT CRUM MD at 1254 CC: [id number] DICTATION DATE: 05/25/19 1224 WATER SUPPLY ENGINEER: 05/25/19 1616 ADM IN [place] [id number] [place] [id number]
--- NOTE | 2019-05-26 12:54 | OP ---
PATIENT NAME: RUTHIE PAUL MEDICAL RECORD: [id number] :64 LOCATION:D.M2 D.2123 ADMISSION DATE:05/24/19 SURGEON: AKSHAT CRUM MD DATE OF OPERATION: 05/25/2019 PROCEDURES: 1. Left heart catheterization. 2. Selective coronary angiography. 3. Left ventriculogram. INDICATION: Recurrent angina, status post previous percutaneous transluminal coronary angioplasty stent. PROCEDURE IN DETAIL: After informed consent was obtained and after a detailed description of risks, benefits as well as alternative therapies, the patient elected to proceed with angiogram and heart catheterization. The right femoral area was prepped and draped in normal sterile fashion. Right femoral artery was cannulated via modified Seldinger technique with placement of 6-Kinyarwanda sheath. All catheters exchanged through this sheath. FINDINGS: Left ventriculogram was performed in standard 30-degree GARCIA view, reveals good cardiac wall motion, ejection fraction estimated at 60%. SELECTIVE CORONARY ANGIOGRAPHY: 1. Left main showed no significant angiographic disease. 2. Left anterior descending has previously placed stents, these are widely patent with no significant restenosis. No disease elsewise of the LAD or its branches. 3. Left circumflex has moderate irregularities, but no flow-limiting stenosis. 4. The right coronary has previously placed stents, these are widely patent with no significant restenosis. No disease elsewise of the RCA or its branches. OVERALL IMPRESSION: Wide patency of all the previously placed stents, no new stenosis is present. Her chest pain at this point is noncardiac in etiology, possibly from her esophageal varices. TRANSINT:[id number] Voice Confirmation ID: [id number] DOCUMENT ID: [id number] AKSHAT CRUM MD at 1254 CC: [id number] DICTATION DATE: 05/25/19 1558 MEAT SELECTOR: 05/26/19 0045 ADM IN [address] [place] [address]
--- NOTE | 2019-05-26 12:54 | EC ---
PATIENT:RUTHIE PAUL DATE OF SERVICE: 05/24/19 SEX: F MEDICAL RECORD: [id number] DATE OF : 64 LOCATION:D.M2 D.212 AGE OF PATIENT: 58 ADMISSION DATE: 05/24/19 REFERRING PHYSICIAN: INTERPRETING PHYSICIAN: AKSHAT RUBI MD ECHOCARDIOGRAM REPORT ECHO CHARGES 4 ECHO COMPLETE Date: 05/25/19 CLINICAL DIAGNOSIS: UNSTABLE ANGINA ECHOCARDIOGRAPHIC MEASUREMENTS (adult normal given) AC root (d.<3.7cm) 3.2 cm LV Septum d (<1.2 cm> 1.1 cm Valve Excursion 1.9 cm LV Septum (systole) 1.7 cm Left Atria (s.<4.0cm> 3.1 cm LVPW d(<1.2cm) 1.2 cm RV (d.<2.3cm) 2.2 cm LVPW (sytole) 2.0 cm LV diastole(<5.6CM) 4.3 cm MV E-F(>70mm/sec) cm LV systole 2.3 cm LVOT Diameter 1.8 cm MV exc.(>10mm) cm Est.ejection fraction (50-75%) % DOPPLER: LVIT cm/sec A 48.0 cm/sec E 55.0 cm/sec LA cm/sec RVSP 30.0 mmHg LVOT 100 cm/sec AOP1/2T m/s Asc. Ao 117 cm/sec RVOT 71.0 cm/sec RA cm/sec PA 86.0 cm/sec AV Gradient Peak 5.5 mmHg AV Mean 2.7 mmHg AV Area 2.2 cm MV Gradient Peak 2.8 mmHg MV Mean 0.76 mmHg MV Area cm COMMENTS: Account Management Assistant: 1 YELENA TAFOYAOE Sample Weaver: 1 Dr. Rubi TAPE# PACS Pericardial Effusion N DATE OF SERVICE: 05/25/2019 FINDINGS: 1. Left ventricular chamber size is within normal limits. Left ventricular systolic function is normal. Overall ejection fraction estimated at 55%. 2. Left atrium, right atrium, and right ventricle chamber sizes are within normal limits. 3. Valvular structures have normal structure and motion. 4. Doppler interrogation reveals no significant valvular insufficiency or stenosis. Pulmonary systolic pressure estimated at 30 mmHg. ECHOCARDIOGRAM REPORT [id number] RUTHIE PAUL 5. No evidence of pericardial effusion or left ventricular thrombus. TRANSINT:[id number] Voice Confirmation ID: [id number] DOCUMENT ID: [id number] AKSHAT RUBI MD at 1254 CC: [id number] DICTATION DATE: 05/25/19 1507 HOSPITALITY HOUSE SUPERVISOR: 05/25/[address] [facility] [address] [place] [address]
[2019-05-26] MEDS ORDERED: CARAFATE1 G PO (14:46)
--- NOTE | 2019-05-26 14:56 | NUR ---
CARAFATE PRESCRIPTION CALLED IN TO [facility].
--- NOTE | 2019-05-26 16:00 | NUR ---
PT DISCHARGED HOME VIA WHEELCHAIR. PIV REMOVED WITH CATHETER TIP FULLY INTACT. TELEMETRY REMOVED AND RETURNED. PT SIGNED PROPER DISCHARGE INSTRUCTIONS AND REMOVED ALL VALUABLES FROM THE ROOM.
--- NOTE | 2019-05-27 09:01 | MORECARE ---
CASE MANAGEMENT DISCHARGE SUMMARY PATIENT: RUTHIE PAUL LEVI UNIT: [id number] ADM DATE: 05/24/19 AGE: 58 : 64 SEX: F ROOM/BED: D.5883 AUTHOR: CARYN PONCE PHYSICIAN: REFERRING PHYSICIAN: DORIS HOLLIS MD DATE OF SERVICE: 05/27/19 Discharge Plan Patient Name: [facility]UTHIE [facility]UL [facility] [facility] 1960 Planned Disposition: Home Anticipated Discharge Date: 05/26/19 Discharge Date: 05/26/2019 Expected LOS: 2 Initial Reviewer: [email or web address] Initial Review Date: 05/27/2019 Generated: 05/27/19 10:01 am Coverage Notice Reviewer: [email or web address] Heather Schmitt Notice Issued Date-Time: 05/26/2019 8:45 Notice Type: Medicare Outpatient Observation Notice Notice Delivered To: Patient Relationship to Patient: Mat Puncher Name: Delivery Method: HAND - Hand Delivered Mela Days: Prior Verbal Notification: Recipient Understood Notice: Yes Recipient Signature: Yes Med Rec Note Co-signed by Attending: Coverage Notice Comment: DAMON DELIVERED AND EXPLAINED. PATIENT STATES RECIEVED ONE IN THE ER WHEN ADMITTED. Patient Name: RUTHIE PAUL Page [phone] at 0901 All edits/amendments must be made on the electronic document DICTATION DATE: 05/27/19 09 PHP DEVELOPER: SHIRIN 05/27/19 09 RPT#: [id number] DC DATE:05/26/19 STATUS: DIS IN [facility] [address] [place] [address] END OF REPORT
== END 2019-05-26 16:01 | disposition home or self-care (01) ==
LOC: D.ER 20:14 → D.M2 21:16 → OBSVTIME 21:16 → D.M2 21:16
PROVIDERS: Family Medicine; ADMIT Internal Medicine Nephrology; ATTEND Internal Medicine Nephrology
DX: I25.119 Atherosclerotic heart disease of native coronary artery with unspecified angina pectoris (principal); N17.9 Acute kidney failure, unspecified; E78.5 Hyperlipidemia, unspecified; K21.9 Gastro-esophageal reflux disease without esophagitis; K74.60 Unspecified cirrhosis of liver; K86.1 Other chronic pancreatitis; F41.8 Other specified anxiety disorders; G62.9 Polyneuropathy, unspecified; J44.9 Chronic obstructive pulmonary disease, unspecified; I69.30 Unspecified sequelae of cerebral infarction

== ENCOUNTER 2019-10-26 13:37 | Emergency (ER) | payer MEDICARE, OTHER ==
[~2019-10-26] VITALS: Ht 180.3 cm; Wt 79.1 kg
[~2019-10-26 13:37] MED LIST changes: +HYDROCODON-ACE1 EAC7 PO; +RANITIDINE HCL150 M1 PO; +TRAZODONE HCL150 MG PO
[2019-10-26 13:43] VITALS: Ht 180.3 cm; Wt 79.1 kg
[2019-10-26 14:06] LABS: BASOPHILS 0.5 % (0-2); EOSINOPHILS 3.6 % (0-7); HEMATOCRIT 41.6 % (36.0-48.0); HEMOGLOBIN 13.2 g/dL (12-16); IMMATURE GRANULOCYTES 0.2 % (0-5); LYMPHOCYTES 27.1 % (15-50); MCH 27.8 pg (26.0-34.0); MCHC 31.7 g/dL (31.0-37.0); MCV 87.8 fL (80.0-100.0); MEAN PLATELET VOLUME 9.9 fL (7.4-10.4); MONOCYTES 9.4 % (2-11); NEUTROPHILS 59.2 % (40-80); RBC 4.74 10x6/uL (4.00-5.40); WBC 5.8 10x3/uL (4.8-10.8)
[2019-10-26 14:15] LABS: APTT 29.5 SECONDS (22.8-39.4); INR 0.93 (0.85-1.17); PROTIME 12.5 SECONDS (11.6-15.0)
[2019-10-26 14:19] LABS: PLATELET COUNT 188 10x3/uL (130-400)
[2019-10-26 14:23] LABS: CALC OSMOLALITY 278 mosm/kg (275-300); CALCIUM 8.8 mg/dL (8.5-10.1); CARBON DIOXIDE 26.2 mmol/L (21.0-32.0); CHLORIDE - SERUM 107 mmol/L (98-107); CREATININE - SERUM 0.7 mg/dL (0.6-1.3); GLUCOSE 100 mg/dL (74-106); POTASSIUM - SERUM 3.6 mmol/L (3.5-5.1); SODIUM 140 mmol/L (136-145); UREA NITROGEN 12 mg/dL (7-18); eGFR NON AFRICAN AMERICAN > 90 mL/min (90-120)
[2019-10-26 14:34] LABS: ALBUMIN 3.8 g/dL (3.4-5.0); ALKALINE PHOSPHATASE 206 U/L (30-120); ALT (SGPT) 35 U/L (10-68); BILIRUBIN - TOTAL 0.36 mg/dL (0.2-1.3); CKMB 0.7 U/L (0.0-3.6); CREATINE KINASE 38 UL (21-215); MAGNESIUM - SERUM 2.2 mg/dL (1.8-2.4); PROTEIN - SERUM 7.2 g/dL (6.4-8.2); TROPONIN-I < 0.017 ng/mL (0.000-0.060)
[2019-10-26 17:35] LABS: AMYLASE - SERUM 42 U/L (25-115); LIPASE 135 U/L (73-393); TROPONIN-I < 0.017 ng/mL (0.000-0.060)
[2019-10-26 18:12] VITALS: BP 126/72
== END 2019-10-26 18:13 | disposition home or self-care (01) ==
LOC: D.ER 13:37
PROVIDERS: Family Medicine
DX: R07.89 Other chest pain (principal); K86.1 Other chronic pancreatitis; Z86.73 Personal history of transient ischemic attack (TIA), and cerebral infarction without residual deficits; I10 Essential (primary) hypertension; J44.9 Chronic obstructive pulmonary disease, unspecified

== ENCOUNTER → 2019-11-07 08:28 | Outpatient (CLI) | payer MEDICARE, OTHER ==
[2019-10-26 13:43] VITALS: BMI 24.3
== END | disposition home or self-care (01) ==
LOC: D.HCCARDIO 08:28
PROVIDERS: ATTEND Internal Medicine Cardiovascular Disease
DX: I25.10 Atherosclerotic heart disease of native coronary artery without angina pectoris (principal)

== ENCOUNTER 2019-11-09 09:38 | Observation (INO) | payer MEDICARE, OTHER ==
[~2019-11-09] VITALS: Ht 180.3 cm; Wt 74.1 kg
--- NOTE | ~2019-11-09 | HEMODYNAMI ---
PATIENT:RUTHIE PAUL MEDICAL RECORD: [id number] : 64 LOCATION:[facility] D.8 ADMISSION DATE: 11/09/19 Generatedon:11/10/20197:18 Patient name: RUTHIE PAUL Patient #: [id number] : 1960 Date of study: 11/10/2019 Page: Of Hemodynamic Procedure Report Patient Data Patient Demographics Procedure consent was obtained First Name: RUTHIE Gender: Female Last Name: HUMBERTO : 1960 Middle Initial: LEVI Age: 58 year(s) Patient #: [id number] Race: SSN: [id number] Additional ID: [id number] Contact details Address: [address] [address] State: [place] City: [place] Zip code: [address] Past Medical History History of disease Date Diagnosis Comments CAD Allergies Allergen Reaction Date Comments Reported Other 05/17/2019 metoclopramide hcl, zolpidem allergy tartrate,pcn,ambien,doxycyclin,vancomycin,macrobid . Other 06/01/2017 See chart allergy Other 06/04/2018 Morphine, Niacin, Zolpidem tartrate, erythromycin allergy base, metoclopramide HCL, PCN, EGG, nitrofurantoin , Other 06/18/2018 MORPHINE, NIACIN, AMBIEN, SULFA, ERYTHROMYCIN BASE , allergy NEGLAN, PCNS, MACROBID, EGG Other 11/10/2019 Gadolinium containing contrast, Reglan, morphine, allergy niacin, Ambien, PCN, Sulfa drugs, nitrofurantoin, erythromycin, egg Admission Admission Data Admission Date: 11/09/2019 Admission Time: 12:46 Room #: D.2118 Height (in.): 70.87 BSA: 2 (m2) Height (cm.): 180 BMI: 24.69 (kg/m2) Weight (lbs.): 176.37 Weight (kg.): 80 Current Diagnosis Diagnosis Description Unstable angina Lab Results Lab Result Date: 11/10/2019 Lab Result Time: 0:00 Biochemistry Name Units Result Min Max Creatinine mg/dl 1 --(--*-)-- 0.6 1.3 eGFR ml/min 61.39316 *-(----)-- 90 120 NONAFRICAN CBC Name Units Result Min Max Hematocrit % 43.5 --(*---)-- 42 54 Hemoglobin g/dl 14.1 --(*---)-- 13.5 17.5 Procedure Procedure Types Cath Procedure Diagnostic Procedure [facility] w/Coronaries Sedation Charges Moderate Sedation up to 15 minutes Procedure Description Procedure Date Procedure Date: 11/10/2019 Procedure Start Time: 7:05 Procedure End Time: 7:17 Procedure Staff Name Function Jani Rico MD Performing Physician Ayala Ramirez RT Monitor Sofía Martines RT Scrub Willow Fowler RN Nurse Procedure Data Cath Procedure Fluoroscopy Diagnostic fluoroscopy Total fluoroscopy Time: 1.7 time: 1.7 min min Diagnostic fluoroscopy Total fluoroscopy dose: 301 dose: 301 mGy mGy Contrast Material Contrast Material Type Amount (ml) Isovue 300 26 Entry Location Entry Primary Successful Side Size Upsize Upsize Entry Closure Doss ccessful Closure Location (Fr) 1 (Fr) 2 (Fr) Remarks Device Remarks Radial Right 6 Fr Mechanical artery Short Compression Estimated blood loss: 5 ml Diagnostic catheters Device Type Used For End Catheter Placement DIAGNOSTIC [place] 110cm 5 Procedure Fr catheter ([id number]) Procedure Complications No complications Procedure Medications Medication Administration Route Dosage 0.9% NaCl I.V. 100 ml/hr Oxygen etCO2 Nasal cannula 2 l/min Lidocaine 2% added to field 20 Heparin Flush Bag added to field 2 bags (1000units/500ml NS) Phenergan I.M. 25 mg Radial Cocktail added to field 1 syringe (Verapamil 2mg/Nitro 400mcg/Heparin 1500units) Versed I.V. 2 mg Fentanyl I.V. 50 mcg Versed I.V. 2 mg Fentanyl I.V. 50 mcg Hemodynamics Rest BSA: 2 (m2) O2 Consumption: Estimated: 190.43 (ml/min) O2 Consumption indexed: E stimated:95.22 (ml/min/m) Heart Rate: 69 (bpm) Pressure Samples Time Site Value (mmHg) Purpose Heart Use Rate(bpm) 7:09 LV 106/-7,4 Snapshot 93 7:10 AO 98/65(79) Pullback 85 7:10 LV 106/-6,6 Pullback 85 Gradients Valve Time Site 1 Site 2 Mean SEP/DFP Peak To Heart Use (mmHg) (sec/min) Peak Rate (mmHg) (bpm) Aortic 7:10 LV AO 11 8 8 85 106/-6,6 98/65(79) Calculations Valve P-P Mean Valve Index Valve Source Name Gradient Area Flow (cm2) Aortic 8 11 8 11 Snapshots Pre Cath Intra NCS Post Cath Vital Signs Time Heart Resp SPO2 etCO2 NIBP Rhythm Pain Sedation Rate (ipm) (%) (mmHg) (mmHg) Status Level (bpm) 6:56:19 74 19 98 46 118/67(83) NSR 0 (11) 10(A) , No pain 7:00:28 70 16 97 15.7 113/61(75) NSR 0 (11) 10(A) , No pain 7:04:36 68 16 97 31.5 112/64(77) NSR 0 (11) 10(A) , No pain 7:08:46 72 18 98 42.7 110/63(82) NSR 0 (11) 10(A) , No pain 7:12:54 82 13 95 42.7 92/51(73) NSR 0 (11) 10(A) , No pain 7:17:47 76 4 95 48.7 103/57(84) NSR 0 (11) 10(A) , No pain Medications Time Medication Route Dose Verified Delivered Reason Notes Eff ectiveness by by 6:55:26 0.9% NaCl I.V. 100 Jani Willow used for ml/hr Jacky Fowler sports book board attendant 6:55:34 Oxygen etCO2 2 l/min Jani Willow used for Nasal Jacky Fowler procedure cannula RN 6:55:38 Lidocaine 2% added 20ml Jani Jani used for to vial Jacky Rico MD procedure field 6:55:44 Heparin Flush added 2 bags Jani Jani used for Bag to Jacky Rico MD procedure (1000units/500ml field NS) 6:55:57 Phenergan I.M. 25 mg Jani Willow for Jacky Fowler nausea RN 6:56:08 Radial Cocktail added 1 Jani Jani used for (Verapamil to syringe Jacky Rico MD procedure 2mg/Nitro field 400mcg/Heparin 1500units) 7:04:13 Versed I.V. 2 mg Jani Willow for Jacky Fowler sedation RN 7:04:27 Fentanyl I.V. 50 mcg Jani Willow for Jacky Fowler sedation RN 7:10:39 Versed I.V. 2 mg Jani Willow for Jacky Fowler sedation RN 7:10:43 Fentanyl I.V. 50 mcg Jani Iwllow for Jacky Fowler sedation air hose coupler Log Time Note 6:23:08 Informed consent obtained and on chart 6:30:22 ACC Patient presents with Unstable Angina CCS Anginal Class 3--Marked limitation of physical activity, angina occurs with ordinary activity.. 6:31:32 ACCPatient has been prescribed/administered the following anti-anginal medication within the last 2 weeks: Long-Acting Nitrates 6:31:36 Procedure Status Urgent Heart Cath (IP). 6:31:38 Time tracking: Regular hours (M-F 7:00 - 5:00) 6:31:43 Plan of Care:Hemodynamics will remain stable., Cardiac rhythm will remain stable., Comfort level will be maintained., Respiratory function will remain adequate., Patient/ family verbilizes understanding of procedure., Procedure tolerated without complication., Recovers from procedure without complications.. 6:31:48 Full Disclosure recording started 6:31:52 H&P Date Dictated: 11/10/2019 Within 30 days and on chart.. 6:32:01 Patient NPO since Midnight. 6:34:03 Patient allergic to Other allergyGadolinium containing contrast, Reglan, morphine, niacin, Ambien, PCN, Sulfa drugs, nitrofurantoin, erythromycin, egg 6:34:10 Is the patient allergic to Iodine/contrast media? No. 6:34:13 Was the patient premedicated? N/A 6:34:16 Is patient on blood thinner?No 6:34:48 Patient not . Patient has had hysterectomy. 6:35:13 ACC The patient was administered the following blood thiners within the last 24 hours: None 6:35:37 Patient diabetic? No. 6:35:39 If diabetic: On Metformin? N/A 6:37:59 Patient Height : 70.87 inches 6:38:03 Patient Weight : 176.37 lbs 6:38:16 Current Diagnosis : Unstable angina 6:38:20 Diagnostic Cath Status : Urgent 6:40:15 Lab Result : Creatinine 1 mg/dl 6:40:15 Lab Result : eGFR NONAFRICAN 61.16717 ml/min 6:40:15 Lab Result : Hematocrit 43.5 % 6:40:15 Lab Result : Hemoglobin 14.1 g/dl 6:40:24 Ayala Ramirez RT(R) sent for patient. Start room use. 6:44:40 Patient received from Med II to CCL 1 Alert and oriented. Tansferred to table in Supine position. 6:44:42 Warm blankets applied, and yeni hugger turned on for patient comfort. 6:44:43 Correct patient and procedure confirmed by team. 6:44:43 ECG and BP/O2 sat monitors applied to patient. 6:44:49 Pre-procedure instructions explained to patient. 6:44:49 Pre-op teaching completed and patient verbalized understanding. 6:45:09 Snore? No 6:45:11 Previous problem with sedation/anesthesia? No ? 6:45:15 Sleep apnea? No 6:45:17 Deviated septum? No 6:45:18 Opens mouth fully? Yes 6:45:20 Sticks out tongue? Yes 6:45:24 Airway obstruction? Yes COPD 6:45:29 Dentures? No ? 6:45:50 Family unavailable. 6:46:08 Patient pain scale 0/10 ?. 6:46:18 IV patent on arrival in left forearm with 0.9% NaCl at [facility]. 6:46:35 Lab results completed and on chart. 6:46:39 Stress Test: no; N/A ? 6:48:02 Risk of Mortality: 0.1 6:51:50 Risk of blood transfusion: .1 6:51:54 Risk of FOREIGN: 10.6 6:51:58 Right Radial & Right Groin area was prepped with chlora-prep and draped in sterile fashion 6:51:58 Alarms reviewed by R. N. 6:51:59 Sharps counted by scrub and verified by R.N. 6:55:17 Vital chart was started 6:55:26 0.9% NaCl 100 ml/hr I.V. was administered by Willow Fowler RN; used for procedure; Verbal order read back and verified. 6:55:34 Oxygen 2 l/min etCO2 Nasal cannula was administered by Willow Fowler RN; used for procedure; Verbal order read back and verified. 6:55:38 Lidocaine 2% 20ml vial added to field was administered by Jani Rico MD; used for procedure; Verbal order read back and verified. 6:55:44 Heparin Flush Bag (1000units/500ml NS) 2 bags added to field was administered by Jani Rico MD; used for procedure; Verbal order read back and verified. 6:55:57 Phenergan 25 mg I.M. was administered by Willow Fowler RN; for nausea; Verbal order read back and verified. 6:56:08 Radial Cocktail (Verapamil 2mg/Nitro 400mcg/Heparin 1500units) 1 syringe added to field was administered by Jani Rico MD; used for procedure; Verbal order read back and verified. 6:59:00 Baseline sample Acquired. 6:59:04 Rhythm: sinus rhythm 6:59:57 Use device set Radial Dx or PCI 6:59:57 ACIST Syringe (68475) opened to sterile field. 6:59:59 Bag Decanter (2002S) opened to sterile field. 6:59:59 ACIST Hand Control (74593) opened to sterile field. 7:00:00 ACIST Manifold (12457) opened to sterile field. 7:00:00 Tegaderm 4 x 4 (1626W) opened to sterile field. 7:00:12 Medline Cath Pack ([id number]) opened to sterile field. 7:00:13 MBrace Wrist Support ([id number]) opened to sterile field. 7:00:14 NEEDLE Cook 21G 4cm Radial (Z14076) opened to sterile field. 7:00:15 EMERALD Guide Wire (502-152) opened to sterile field. 7:00:16 SHEATH 6FR RAIN (9793898) opened to sterile field. 7:03:22 --------ALL STOP TIME OUT------ 7:03:22 Final Timeout: patient, procedure, and site verified with staff and physician. All members of the team are in agreement. 7:03:24 Right Radial & Right Groin site verified by team. 7:03:27 Fire Safety Assessment: A--An alcohol-based skin anteseptic being used preoperatively., C--Open oxygen or nitrous oxide is being used., D--An ESU, laser, or fiber-optic light is being used. 7:03:31 Physical assessment completed. ASA score P 2 - A patient with mild systemic disease as per Jani Rico MD. 7:03:34 2) 60-89 Mildly reduced kidney function, and other findings (as for stage 1) point to kidney disease. 7:03:36 Maximum allowable contrast dose (3.7 X eGFR X 0.75)169 ml. 7:03:41 Sedation plan: IV Moderate Sedation Medication:Versed, Fentanyl 7:04:13 Versed 2 mg I.V. was administered by Willow Fowler RN; for sedation; Verbal order read back and verified. 7:04:27 Fentanyl 50 mcg I.V. was administered by Willow Fowler RN; for sedation; Verbal order read back and verified. 7:05:52 Procedure started. 7:05:59 Local anesthetic to right radial artery with Lidocaine 2% by Jani Rico MD.INITIAL ACCESS ONLY 7:06:36 Zero performed for pressure channel P1 7:08:00 A 6 Fr Short sheath was inserted into the Right Radial artery 7:08:29 A DIAGNOSTIC [place] 110cm 5 Fr catheter (338776) was advanced over the wire and used for Procedure. 7:09:01 LV gram done using GARCIA 7:09:03 Injector settings: Ml/sec: 5, Volume: 15, 7:09:42 LV hemodynamics recorded. 7:09:55 EF : 60 % 7:10:39 Versed 2 mg I.V. was administered by Willow Fowler RN; for sedation; Verbal order read back and verified. 7:10:43 Fentanyl 50 mcg I.V. was administered by Willow Fowler RN; for sedation; Verbal order read back and verified. 7:11:50 LCA angiography performed. 7:12:44 RCA angiography performed. 7:13:11 ACCDominant side:Right 7:13:14 Catheter removed. 7:13:30 TR BAND Standard ([id number]) opened to sterile field. 7:14:56 Procedure ended.(Physican Out) 7:15:26 Sheath removed intact; hemostasis achieved with Mechanical Compression to the Right Radial artery. 7:15:31 Fluoroscopy time 01.70 minutes. 7:15:34 Fluoroscopy dose: 301 mGy 7:15:34 Flurop Dose total: 301 7:15:44 Dose Area Product 60228 mGy/cm. 7:15:49 Contrast amount:Isovue 300 26ml. 7:15:56 Maximum allowable dose exceeded? No. 7:15:57 Sharps counted by scrub and verified by R.N. 7:16:08 Twining band inflated with 10cc of air. 7:16:33 Post-procedure physical assessment completed. ASA score P 2 - A patient with mild systemic disease as per Jani Rico MD. 7:16:37 Post procedure rhythm: sinus rhythm 7:16:40 Estimated blood loss: 5 ml 7:16:41 Post procedure instruction explained to patient.Patient verbalizes understanding. 7:16:41 Patient needs reinforcement of post procedure teaching. 7:17:01 Procedure type changed to Cath procedure, Diagnostic procedure, LHC, [facility] w/Coronaries, Sedation Charges, Moderate Sedation up to 15 minutes 7:17:23 Procedure and supply charges have been captured, reviewed, submitted and are correct. 7:17:26 Procedure Complication : No complications 7:17:27 Vital chart was stopped 7:17:29 [facility] Findings: mild to moderate CAD (<70%) 7:17:30 Operative report dictated upon procedure completion. 7:17:30 See physician's report for complete and final results. 7:17:32 Report given to [facility]. 7:17:34 Patient transfered to [facility] II with Bed. 7:17:36 Procedure ended. 7:17:36 Full Disclosure recording stopped 7:17:40 End room use (Document Last) 7:17:51 End room use (Document Last) 7:18:19 End room use (Document Last) Device Usage Item Name Manufacture Quantity Catalog Hospital Part Current Minima l Lot# / Number Charge Number Stock Stock Serial# Code ACIST Acist 1 61777 457358 641602 391672 20 Syringe Medical (11928) Systems Inc Bag Microtek 1 703883 41635 436580 5 Decanter Medical Inc. () ACIST Hand Acist 1 90988 277672 151876 500186 5 Control Medical (97716) Systems Inc ACIST Acist 1 79484 086702 212491 668786 5 Manifold Medical (44558) Systems Inc Tegaderm 4 3M 1 1626W 367634 149596 647832 5 x 4 (1626W) Medline Medline 1 [id number] 242676 12258 541112 5 Cath Pack ([id number]) MBrace Advanced 1 140-0250-00 995026 42753 180268 5 Wrist Vascular Support Dynamics ([id number]) NEEDLE Cook Cook Medical 1 P98256 298200 656917 224569 5 21G 4cm Radial (F77314) EMERALD Cardinal 1 588-319 320655 352783 953516 5 Guide Wire Health (511-452) SHEATH 6FR Cardinal 1 2480472 234384 0636996 378487 5 [facility] (2683895) DIAGNOSTIC Terumo 1 40-0353 498707 368565 941680 5 [place] 110cm 5 Fr catheter (303119) TR BAND Terumo 1 [id number] 837688 228383 409851 40 Standard ([id number]) Signature Audit [place] Stage Time Signature Unsigned Intra-Procedure 11/10/2019 Ayala Ramirez 7:17:51 AM RT(R) Intra-Procedure 11/10/2019 Willow Fowler 7:18:19 AM RN Intra-Procedure 11/10/2019 Jani Rico MD 7:18:46 AM [address] [place] [address]
[2019-11-09 10:17] LABS: HEMATOCRIT 43.5 % (36.0-48.0); HEMOGLOBIN 14.1 g/dL (12-16); LYMPHOCYTES 33.7 % (15-50); MCH 27.9 pg (26.0-34.0); MCHC 32.4 g/dL (31.0-37.0); MCV 86.1 fL (80.0-100.0); MEAN PLATELET VOLUME 9.5 fL (7.4-10.4); NEUTROPHILS 57.5 % (40-80); PLATELET COUNT 212 10x3/uL (130-400); RBC 5.05 10x6/uL (4.00-5.40); RDW 14.2 % (11.5-14.5); WBC 5.9 10x3/uL (4.8-10.8)
[2019-11-09 10:28] LABS: CALC OSMOLALITY 280 mosm/kg (275-300); CALCIUM 8.9 mg/dL (8.5-10.1); CARBON DIOXIDE 24.7 mmol/L (21.0-32.0); CHLORIDE - SERUM 106 mmol/L (98-107); GLUCOSE 117 mg/dL (74-106); SODIUM 140 mmol/L (136-145); UREA NITROGEN 14 mg/dL (7-18); eGFR NON AFRICAN AMERICAN 61 mL/min (90-120)
[2019-11-09 10:34] LABS: APTT 29.9 SECONDS (22.8-39.4); INR 0.91 (0.85-1.17); PROTIME 12.2 SECONDS (11.6-15.0)
[2019-11-09 10:43] LABS: ALBUMIN 3.8 g/dL (3.4-5.0); ALKALINE PHOSPHATASE 278 U/L (30-120); ALT (SGPT) 53 U/L (10-68); BILIRUBIN - TOTAL 0.42 mg/dL (0.2-1.3); CKMB 0.6 U/L (0.0-3.6); CREATINE KINASE 29 UL (21-215); MAGNESIUM - SERUM 2.2 mg/dL (1.8-2.4); PROTEIN - SERUM 7.3 g/dL (6.4-8.2); TROPONIN-I < 0.017 ng/mL (0.000-0.060)
[2019-11-09 15:02] LABS: CKMB 0.5 U/L (0.0-3.6); CREATINE KINASE 26 UL (21-215)
[2019-11-09 15:12] LABS: TROPONIN-I < 0.017 ng/mL (0.000-0.060)
[2019-11-09 16:00] LABS: LDL-HDL RATIO 2.3 ratio (1.5-3.5)
[2019-11-09 16:23] VITALS: BP 113/74; Ht 180.3 cm; Wt 74.1 kg
--- NOTE | 2019-11-09 16:30 | NUR ---
RECEIVED PT FROM ER. PT IS AAO AND UP AD ROXIE. NO S/S OF DISTRESS NOTED. PT DENIES ANY NEEDS. QUICKSTART, HISTORY, AND MED REQ COMPLETE. WILL CTM.
[2019-11-09 20:00] VITALS: BP 114/64
--- NOTE | 2019-11-09 20:04 | NUR ---
PATIENT IS RESTING IN BED COMFORTABLY. SHE IS ALERT AND ORIENTED. SHE IS GETTING NEB TREATMENTS. SHE IS HAVE A HEART CATH IN AM, AND IS TO BE NPO AT MIDNIGHT. SIGN PUT ON DOOR.WE WILL CONTINUE TO MONITOR HER RATE AND RHYTHM.
[2019-11-09 21:44] LABS: CKMB 0.3 U/L (0.0-3.6); CREATINE KINASE 22 UL (21-215); TROPONIN-I < 0.017 ng/mL (0.000-0.060)
--- NOTE | 2019-11-09 23:30 | NUR ---
i CALLED CARDIOLOGY SHAHEED ALBRIGHT. I CALLED AND INFORMED HER OF GADOLINIUM CONTAINING CONTRAST ALLLERGY. I ASKED HER IF WE NEEDED TO GIVE STEROID TO TREAT ALLERGY FOR HEART CATH IN THE MORNING. SHE SAID NO BECAUSE SHE WOULD BE GETTING A IODINE CONTRAST DURINING HEART CATH.
[2019-11-10] VITALS: BP 106/56
--- NOTE | 2019-11-10 03:59 | NUR ---
PATIENT IS SLEEPING COMFORTABLY IN BED. SHE HAD DILUADID ONCE FOR CHEST PAIN. SHE HAS BEEN NPO SINCE MIDNIGHT, FOR HEART CATHETERATION THIS MORNING.
[2019-11-10 04:00] VITALS: BP 104/59
[2019-11-10 05:58] LABS: ALBUMIN 3.1 g/dL (3.4-5.0); ANION GAP 10.4 mmol/L (8-16); BILIRUBIN - TOTAL 0.5 mg/dL (0.2-1.3); CALCIUM 8.4 mg/dL (8.5-10.1); CARBON DIOXIDE 27.9 mmol/L (21.0-32.0); CREATININE - SERUM 0.9 mg/dL (0.6-1.3); MAGNESIUM - SERUM 2.2 mg/dL (1.8-2.4); POTASSIUM - SERUM 4.3 mmol/L (3.5-5.1); PROTEIN - SERUM 6.3 g/dL (6.4-8.2)
[2019-11-10 05:59] LABS: HEMOGLOBIN 12.4 g/dL (12-16); LYMPHOCYTES 26.6 % (15-50); MCH 27.9 pg (26.0-34.0); MCHC 31.8 g/dL (31.0-37.0); MCV 87.6 fL (80.0-100.0); MEAN PLATELET VOLUME 10.1 fL (7.4-10.4); NEUTROPHILS 62.6 % (40-80); PLATELET COUNT 189 10x3/uL (130-400); RBC 4.45 10x6/uL (4.00-5.40); RDW 14.3 % (11.5-14.5); WBC 5.7 10x3/uL (4.8-10.8)
--- NOTE | 2019-11-10 07:30 | NUR ---
RECEIVED PT FROM MEDICAL OFFICE ASSISTANT INSTRUCTOR. RIGHT RADIAL SITE IS C/D/I WITH NO S/S OF HEMATOMA OR BLEEDING PRESENT. TR BAND IN PLACE. NS INFUSING @100ML/HR VIA L.HAND PIV. VSS AND WNL. NO S/S OF DISTRESS NOTED. WILL CTM.
[2019-11-10 08:30] VITALS: BP 95/52
--- NOTE | 2019-11-10 14:04 | NUR ---
PT DISCHARGED HOME VIA WHEELCHAIR WITH FAMILY. PIV REMOVED WITH CATHETER TIP FULLY INTACT. TELEMETRY REMOVED AND RETURNED. PT SIGNED PROPER DISCHARGE INSTRUCTIONS AND REMOVED ALL VALUABLES FROM THE ROOM.
--- NOTE | 2019-11-10 16:54 | MORECARE ---
CASE MANAGEMENT DISCHARGE SUMMARY PATIENT: REBEKA CÁRDENAS LEVI UNIT: [id number] ADM DATE: 11/09/19 AGE: 58 : 64 SEX: F ROOM/BED: D.1658 AUTHOR: CARYN PONCE PHYSICIAN: REFERRING PHYSICIAN: RAMEZ MANN MD DATE OF SERVICE: 11/10/19 Discharge Plan Patient Name: REBEKA CÁRDENAS [facility] [facility] 1960 Planned Disposition: Home Anticipated Discharge Date: 11/10/19 Discharge Date: 11/10/2019 Expected LOS: 1 Initial Reviewer: [email or web address] Initial Review Date: 11/09/2019 Generated: 11/10/19 5:53 pm Coverage Notice Reviewer: [email or web address] Heather Benson Notice Issued Date-Time: 11/10/2019 10:30 Notice Type: Medicare Outpatient Observation Notice Notice Delivered To: Patient Relationship to Patient: Self Obstetrician Name: Rebeka Cárdenas Delivery Method: HAND - Hand Delivered Mela Days: Prior Verbal Notification: Recipient Understood Notice: Yes Recipient Signature: Yes Med Rec Note Co-signed by Attending: Coverage Notice Comment: NELSON Patient Name: REBEKA CÁRDENAS Page 12562 at 1654 All edits/amendments must be made on the electronic document DICTATION DATE: 11/10/191652 SOFTWARE CONFIGURATION ANALYST: SHIRIN 11/10/191652 RPT#: [id number] DC DATE:11/10/19 STATUS: DIS IN [id number] [place] [address] END OF REPORT
== END 2019-11-10 14:05 | disposition home or self-care (01) ==
LOC: D.ER 09:38 → OBSVTIME 12:46 → D.M2 12:46
PROVIDERS: Emergency Medicine; Family Medicine; Internal Medicine Cardiovascular Disease; ADMIT Family Medicine; ATTEND Family Medicine
DX: I25.119 Atherosclerotic heart disease of native coronary artery with unspecified angina pectoris (principal); I10 Essential (primary) hypertension; J44.9 Chronic obstructive pulmonary disease, unspecified; F17.203 Nicotine dependence unspecified, with withdrawal; K86.1 Other chronic pancreatitis; K74.60 Unspecified cirrhosis of liver; K21.9 Gastro-esophageal reflux disease without esophagitis; E78.5 Hyperlipidemia, unspecified; I73.9 Peripheral vascular disease, unspecified

== ENCOUNTER 2020-01-04 18:49 | Emergency (ER) | payer MEDICARE, OTHER ==
[~2020-01-04] VITALS: Ht 180.3 cm; Wt 77.3 kg
[2020-01-04 19:12] VITALS: Ht 180.3 cm; Wt 77.3 kg
[2020-01-04 19:42] LABS: BASOPHILS 0.7 % (0-2); EOSINOPHILS 5.9 % (0-7); HEMATOCRIT 41.3 % (36.0-48.0); HEMOGLOBIN 13.4 g/dL (12-16); IMMATURE GRANULOCYTES 0.2 % (0-5); LYMPHOCYTES 34.2 % (15-50); MCH 28.8 pg (26.0-34.0); MCHC 32.4 g/dL (31.0-37.0); MCV 88.8 fL (80.0-100.0); MEAN PLATELET VOLUME 9.6 fL (7.4-10.4); MONOCYTES 8.2 % (2-11); NEUTROPHILS 50.8 % (40-80); PLATELET COUNT 197 10x3/uL (130-400); RBC 4.65 10x6/uL (4.00-5.40); RDW 14.7 % (11.5-14.5); WBC 5.6 10x3/uL (4.8-10.8)
[2020-01-04 19:56] LABS: CARBON DIOXIDE 27.2 mmol/L (21.0-32.0); CREATININE - SERUM 0.9 mg/dL (0.6-1.3); POTASSIUM - SERUM 4.2 mmol/L (3.5-5.1)
[2020-01-04 20:02] LABS: ALBUMIN 3.6 g/dL (3.4-5.0); BILIRUBIN - TOTAL 0.28 mg/dL (0.2-1.3); PROTEIN - SERUM 7.3 g/dL (6.4-8.2)
[2020-01-04 21:20] LABS: BILIRUBIN NEGATIVE (NEGATIVE); KETONE NEGATIVE (NEGATIVE); NITRITE NEGATIVE (NEGATIVE); UROBILINOGEN NORMAL (NORMAL)
[2020-01-05] VITALS: BP 132/77
== END 2020-01-05 | disposition home or self-care (01) ==
LOC: D.ER 18:49
PROVIDERS: Family Medicine
DX: R10.9 Unspecified abdominal pain (principal); K59.00 Constipation, unspecified; R94.5 Abnormal results of liver function studies; K74.60 Unspecified cirrhosis of liver; Z95.5 Presence of coronary angioplasty implant and graft

== ENCOUNTER → 2020-02-10 08:35 | Outpatient (CLI) | payer MEDICARE, OTHER ==
[2020-01-04 19:12] VITALS: BMI 23.7
== END | disposition home or self-care (01) ==
LOC: D.LAB 08:35
PROVIDERS: ATTEND Internal Medicine Pulmonary Disease
DX: Z11.59 Encounter for screening for other viral diseases (principal)

== ENCOUNTER → 2020-02-15 08:35 | Outpatient (CLI) | payer MEDICARE, OTHER ==
[2020-01-04 19:12] VITALS: BMI 23.7
== END | disposition home or self-care (01) ==
LOC: D.RT 08:35
PROVIDERS: ATTEND Internal Medicine Pulmonary Disease
DX: J44.9 Chronic obstructive pulmonary disease, unspecified (principal); Z11.59 Encounter for screening for other viral diseases

== ENCOUNTER 2020-08-30 18:00 | Outpatient (CLI) | payer MEDICARE, OTHER ==
[2020-05-07 22:21] VITALS: BMI 22.5
[~2020-08-30 18:00] MED LIST changes: +ALBUTEROL2.5 MG/3 M INH
== END 2020-08-30 23:59 | disposition home or self-care (01) ==
LOC: D.MAMMO 18:00
PROVIDERS: ATTEND Family Medicine Adult Medicine
DX: Z12.31 Encounter for screening mammogram for malignant neoplasm of breast (principal)

== ENCOUNTER → 2020-08-31 10:10 | Outpatient (CLI) | payer MEDICARE, OTHER ==
[2020-05-07 22:21] VITALS: BMI 22.5
== END | disposition home or self-care (01) ==
LOC: D.RT 10:10
PROVIDERS: ATTEND Internal Medicine Pulmonary Disease
DX: J44.9 Chronic obstructive pulmonary disease, unspecified (principal)

== ENCOUNTER → 2020-10-18 12:39 | Outpatient (CLI) | payer MEDICARE, OTHER ==
[2020-05-07 22:21] VITALS: BMI 22.5
== END | disposition home or self-care (01) ==
LOC: D.RT 12:39
PROVIDERS: ATTEND Internal Medicine Pulmonary Disease
DX: J44.9 Chronic obstructive pulmonary disease, unspecified (principal); Z11.52 Encounter for screening for COVID-19